=== PATIENT | male | born 1950 | race African-American/Black ===

== ENCOUNTER → 2016-07-10 19:22 | Outpatient (CLI) | payer MEDICARE ==
[2015-11-20 13:08] VITALS: BMI 26.2
[~2016-07-10 19:22] MED LIST: ASPIRIN325 MG PO; BAYER CHEWABLE81 MG PO; CATAPRES0.1 MG PO; CEFTIN250 MG; COREG12.5 MG PO; COREG6.25 MG PO; EFFEXOR25 MG PO; EFFEXOR37.5 MG PO; GLUCOPHAGE500 MG PO; GLUCOTROL 5 MG T5 MG; GLUCOTROL 5 MG T5 MG PO; HYDRALAZINE HCL50 MG PO; HYDROCODONE-APA1 TAB PO; K-DUR20 MEQ PO; LANTUS INSULIN10 ML; LANTUS SOL100 UNIT/1 SQ; LASIX40 MG PO; LEVAQUIN 5500 MG/100 PO; LIPITOR10 MG PO; LIPITOR40 MG PO; LISINOPRIL2.5 MG; NORCO 10/325 TA1 TA1 PO; NORCO 5/325 TAB1 TA1 PO; NORVASC10 MG PO; NORVASC5 MG PO; NOVOLOG100 U/M1 SQ; PHOSLO667 MG PO; PROTONIX40 MG PO; SODIUM BICARBO650 MG PO; ZESTRIL40 MG PO
== END | disposition home or self-care (01) ==
LOC: D.SLEEP 19:22
DX: G47.33 Obstructive sleep apnea (adult) (pediatric) (principal)

== ENCOUNTER → 2016-07-18 19:20 | Outpatient (CLI) | payer MEDICARE ==
[2015-11-20 13:08] VITALS: BMI 26.2
== END | disposition home or self-care (01) ==
LOC: D.SLEEP 19:20
DX: G47.33 Obstructive sleep apnea (adult) (pediatric) (principal)

== ENCOUNTER → 2016-09-10 13:26 | Outpatient (CLI) | payer MEDICARE ==
[2015-11-20 13:08] VITALS: BMI 26.2
== END | disposition home or self-care (01) ==
LOC: D.CT 13:26
DX: R91.1 Solitary pulmonary nodule (principal)

== ENCOUNTER → 2017-01-22 13:18 | Outpatient (CLI) | payer MEDICARE ==
[2015-11-20 13:08] VITALS: BMI 26.2
== END | disposition home or self-care (01) ==
LOC: D.CT 13:18
DX: R91.1 Solitary pulmonary nodule (principal)

== ENCOUNTER → 2017-01-27 10:46 | Outpatient (CLI) | payer MEDICARE ==
[2015-11-20 13:08] VITALS: BMI 26.2
== END | disposition home or self-care (01) ==
LOC: D.LABREF 10:46
DX: R91.1 Solitary pulmonary nodule (principal)

== ENCOUNTER 2017-02-03 05:23 | Outpatient (CLI) | payer MEDICARE ==
[~2017-02-03] VITALS: Ht 185.4 cm; Wt 86.8 kg
[2017-02-03 05:54] VITALS: BP 237/128; Ht 185.4 cm; Wt 86.8 kg
[2017-02-03 06:20] LABS: BASOPHILS 0.4 % (0-2); EOSINOPHILS 3.5 % (0-7); HEMATOCRIT 34.2 % (42.0-54.0); HEMOGLOBIN 11.2 g/dL (13.5-17.5); LYMPHOCYTES 37.5 % (15-50); MCH 26.5 pg (26.0-34.0); MCHC 32.7 g/dL (31.0-37.0); MONOCYTES 7.9 % (2-11); NEUTROPHILS 50.7 % (40-80); RBC 4.22 10x6/uL (4.20-6.10); RDW 16.8 % (11.5-14.5); WBC 5.2 10x3/uL (4.8-10.8)
[2017-02-03 06:22] LABS: PLATELET COUNT 177 10x3/uL (130-400)
[2017-02-03 06:28] LABS: APTT 30.8 SECONDS (22.8-39.4); INR 1.21 (0.85-1.17); PROTIME 15.2 SECONDS (11.6-15.0)
[2017-02-03 06:31] LABS: CALCIUM 8.1 mg/dL (8.5-10.1); CARBON DIOXIDE 17.3 mmol/L (21.0-32.0); CREATININE - SERUM 3.8 mg/dL (0.6-1.3); POTASSIUM - SERUM 5.3 mmol/L (3.5-5.1)
--- NOTE | 2017-02-03 07:29 | NUR ---
0600- PT WITH ELEVATED BP. RADIOLOGY PAGED. WILL AWAIT ORDERS. 0700- SPOKE WITH KAYLEN Swartz RN, BP REMAINS ELEVATED. DR. ALONZO NOT NOTIFIED. WILL AWAIT ORDERS
--- NOTE | 2017-02-03 10:43 | NUR ---
0931 SEE POST PROCEDURE VITAL SIGNS CHECKLIST FOR VITAL SIGN TRENDING. PT SATURATED DRESSING, CHANGED.
== END 2017-02-03 14:00 | disposition home or self-care (01) ==
LOC: D.OPS 05:23 → D.SP 08:00 → D.OPS 08:00
PROVIDERS: Specialist
DX: C34.91 Malignant neoplasm of unspecified part of right bronchus or lung (principal); J44.9 Chronic obstructive pulmonary disease, unspecified; N18.9 Chronic kidney disease, unspecified; I12.9 Hypertensive chronic kidney disease with stage 1 through stage 4 chronic kidney disease, or unspecified chronic kidney disease; K21.0 Gastro-esophageal reflux disease with esophagitis; J90 Pleural effusion, not elsewhere classified; Z87.891 Personal history of nicotine dependence

== ENCOUNTER 2017-03-24 13:54 | Outpatient (CLI) | payer MEDICARE ==
[~2017-03-24] VITALS: Ht 185.4 cm; Wt 84.1 kg
[2017-03-24 14:52] VITALS: BP 162/82; Ht 185.4 cm; Wt 84.1 kg
--- NOTE | 2017-03-24 19:05 | NUR ---
PATIENT LYING IN BED, SLEEPING, RESPIRATIONS EVEN AND UNLABORED. VSS. PRBC'S TRANSFUSING WITHOUT DIFFICULTY AT 185 CC/HR TO LEFT UPPER EXT PIV
--- NOTE | 2017-03-24 19:55 | NUR ---
PATIENT TRANSFERRED BY WHEELCHAIR TO ROOM 2135 FOR REMAINDER OF TRANSFUSION AND POST TRANSFUSION EVALUATION PERIOD
--- NOTE | 2017-03-24 20:15 | NUR ---
RECIEVED PT. PT IN ROOM FOR MONITORING.
--- NOTE | 2017-03-24 21:30 | NUR ---
DISCHARGED PT. VSS. DISCHARGE PAPERWORK GIVEN TO PT. ESCORTED TO FRONT DOOR BY THIS NURSE.
== END 2017-03-24 21:30 | disposition home or self-care (01) ==
LOC: D.OPS 13:54 → D.M2 19:57 → D.OPS 21:30
DX: D63.0 Anemia in neoplastic disease (principal); C34.11 Malignant neoplasm of upper lobe, right bronchus or lung

== ENCOUNTER → 2017-04-04 05:42 | Day surgery (SDC) | payer MEDICARE ==
[~2017-04-04 05:42] MED LIST changes: +ALBUTEROL2.5 MG/3 M INH; +ALDACTONE25 MG PO; +ALDACTONE50 MG PO; +BREO ELLIPTA 11 EACH INH; +BROVANA15 MCG/2 M INH; +CARAFATE1 G/10 ML PO; +CENTRUM SILVER1 TA1 PO; +COLACE100 MG PO; +FERROUS SULFAT325 MG PO; +FOLIC ACID1 MG PO; +IPRAT-ALBUT 0.5-3 ML UPD; +NOVOLIN 70/30 110 ML; +PEPCID20 MG PO; +PHENERGAN25 M1 PO; +PROCRIT/EP40000 UNIT SQ; +SODIUM BICARBO325 MG PO; +VITAMIN B-122500 MCG PO
[2017-04-04 07:13] VITALS: BP 139/65; BMI 24.3
[2017-04-04 08:15] LABS: MCH 26.3 pg (26.0-34.0); MCHC 33.2 g/dL (31.0-37.0); MCV 79.3 fL (80.0-100.0); MEAN PLATELET VOLUME 9.9 fL (7.4-10.4); RBC 2.51 10x6/uL (4.20-6.10); RDW 17.4 % (11.5-14.5); WBC 9.5 10x3/uL (4.8-10.8)
[2017-04-04 08:17] LABS: HEMATOCRIT 19.9 % (42.0-54.0); HEMOGLOBIN 6.6 g/dL (13.5-17.5)
--- NOTE | 2017-04-04 14:03 | OP ---
PATIENT NAME: KERRI BAUTISTA SR MEDICAL RECORD: [id number] :50 [facility] AD[facility] DATE: SURGEON: ISIDORO GOMEZ MD DATE OF OPERATION: 04/04/2017 PREOPERATIVE DIAGNOSES: 1. Lung cancer. 2. Anemia of chronic disease. 3. Hypertension. 4. Coronary artery disease. 5. Diabetes mellitus. 6. Chronic obstructive pulmonary disease. 7. Chronic renal failure. 8. Obstructive sleep apnea. POSTOPERATIVE DIAGNOSES: 1. Lung cancer. 2. Anemia of chronic disease. 3. Hypertension. 4. Coronary artery disease. 5. Diabetes mellitus. 6. Chronic obstructive pulmonary disease. 7. Chronic renal failure. 8. Obstructive sleep apnea. PROCEDURE: Left subclavian vein PowerPort placement with fluoroscopic interpretation. SURGEON: Isidoro Gomez MD OPERATIVE PROCEDURE: The patient's left chest was prepped and draped in sterile fashion. A 10 mL of a mixture of 0.25% Marcaine plain and 1% lidocaine with epinephrine was infused into the surrounding tissues. A needle was then used to cannulate the left subclavian vein and a guidewire was advanced with these. Fluoro was used to note that the wire was in good position in the venous system. A skin incision was then made on the left upper lateral chest and a subcutaneous pouch was made over the pectoral fascia. The catheter was then tunneled between this pouch and the wire exit site. The port was then sutured to the pectoral fascia using interrupted 2-0 Prolenes times 2. The catheter was cut with a beveled tip at 20 cm. The dilator trocar device was placed over the wire and the wire and dilator were removed. The catheter tip was advanced through the trocar with ease and the trocar was removed. The catheter resting in good position in the superior vena cava. The catheter aspirated nonpulsatile dark blood and flushed easily with heparinized saline. The subcutaneous tissues were reapproximated with interrupted 3-0 Vicryl and the skin was closed with subcutaneous 5-0 Monocryl. We then accessed the port with a Rust needle and placed the dressing. COMPLICATIONS: None. CONDITION: Stable. ANESTHESIA: TIVA and local. BLOOD LOSS: Minimal. OPERATIVE REPORT [id number] KERRI BAUTISTA TRANSINT:[id number] Voice Confirmation ID: [id number] DOCUMENT ID: [id number] ISIDORO GOMEZ MD at 1403 CC: BOB LIN MD and JOE RICCI MD [id number] DICTATION DATE: 04/04/1756 MOTOR INSPECTION MECHANIC: 04/04/17 1018 [facility] [address] [place] [address]
--- NOTE | 2017-04-04 19:33 | NUR ---
1055 1ST UNIT BLOOD STARTED AT BEDSIDE 1330 UNIT FINISH PT SITING UP EATING 1345 2ND UNIT START 1645 UNIT FINISH NO DISTRESS NOTED 1730 IV DC WITH CATHER TIP INTACT PORT FLUSH PER PROTOCOL
== END | disposition home or self-care (01) ==
LOC: D.OPS 05:42 → D.PAN 14:00 → D.OPS 14:00
PROVIDERS: Anesthesiology
DX: C34.90 Malignant neoplasm of unspecified part of unspecified bronchus or lung (principal); J44.9 Chronic obstructive pulmonary disease, unspecified; G47.33 Obstructive sleep apnea (adult) (pediatric); I12.9 Hypertensive chronic kidney disease with stage 1 through stage 4 chronic kidney disease, or unspecified chronic kidney disease; N18.9 Chronic kidney disease, unspecified; Z87.891 Personal history of nicotine dependence; J84.9 Interstitial pulmonary disease, unspecified; J90 Pleural effusion, not elsewhere classified; K21.0 Gastro-esophageal reflux disease with esophagitis; R91.8 Other nonspecific abnormal finding of lung field; Z01.812 Encounter for preprocedural laboratory examination

== ENCOUNTER 2017-04-20 09:22 | Inpatient (IN) | payer MEDICARE ==
[2017-04-20] VITALS (16 sets, daily range): BP systolic 137–173; BP diastolic 69–97; BMI 23.1
[~2017-04-20 09:22] MED LIST changes: -ALBUTEROL2.5 MG/3 M INH; -ALDACTONE25 MG PO; -BROVANA15 MCG/2 M INH; -CARAFATE1 G/10 ML PO; -COLACE100 MG PO; -IPRAT-ALBUT 0.5-3 ML UPD; -NOVOLIN 70/30 110 ML; -PEPCID20 MG PO; -PHENERGAN25 M1 PO; -PROCRIT/EP40000 UNIT SQ; -SODIUM BICARBO325 MG PO
[2017-04-20 10:23] LABS: BASOPHILS 0.4 % (0-2); EOSINOPHILS 1.2 % (0-7); HEMATOCRIT 23.4 % (42.0-54.0); HEMOGLOBIN 7.7 g/dL (13.5-17.5); IMMATURE GRANULOCYTES 4.8 % (0-5); LYMPHOCYTES 22.2 % (15-50); MCH 26.6 pg (26.0-34.0); MCHC 32.9 g/dL (31.0-37.0); MEAN PLATELET VOLUME 9.3 fL (7.4-10.4); MONOCYTES 7.8 % (2-11); NEUTROPHILS 63.6 % (40-80); PLATELET COUNT 515 10x3/uL (130-400); RBC 2.89 10x6/uL (4.20-6.10); WBC 11.2 10x3/uL (4.8-10.8)
[2017-04-20 10:36] LABS: ALBUMIN 1.7 g/dL (3.4-5.0); ANION GAP 15.2 mmol/L (8-16); CALCIUM 7.5 mg/dL (8.5-10.1); CARBON DIOXIDE 17.6 mmol/L (21.0-32.0); CREATININE - SERUM 2.8 mg/dL (0.6-1.3); POTASSIUM - SERUM 3.8 mmol/L (3.5-5.1); PROTEIN - SERUM 5.5 g/dL (6.4-8.2)
[2017-04-20 10:37] LABS: BILIRUBIN - TOTAL 0.08 mg/dL (0.2-1.3)
[2017-04-20 12:36] LABS: APPEARANCE CLEAR (CLEAR); BILIRUBIN NEGATIVE (NEGATIVE); COLOR YELLOW (YELLOW); GLUCOSE 50 mg/dL (NEGATIVE); KETONE NEGATIVE (NEGATIVE); NITRITE NEGATIVE (NEGATIVE); PROTEIN 3+ mg/dL (NEGATIVE); SPECIFIC GRAVITY 1.015 (1.005-1.020); UROBILINOGEN NORMAL (NORMAL)
[2017-04-20 12:38] LABS: BACTERIA FEW /hpf (NONE SEEN); EPITHELIAL CELLS 0-5 /hpf (0-5); RED CELLS - URINE 0-5 /hpf (0-5); WHITE CELLS - URINE 0-5 /hpf (0-5)
--- NOTE | 2017-04-20 14:30 | NUR ---
PATIENT TO ROOM AT THIS TIME. SITTING UP IN BED. DENIES ANY NEEDS AT THIS TIME. WANTING TO EAT. EXPLAINED NPO. VERBALIZED UNDERSTANDING. CALL LIGHT WITHIN REACH.
--- NOTE | 2017-04-20 17:45 | NUR ---
PATIENT FIRST UNIT OF BLOOD STARTED AT THIS TIME. PORT ACCESS INTACT. VS STABLE. NO COMPLAINTS OR SIGNS OF DISTRESS. FAMILY AT BEDSIDE. CALL LIGHT WITHIN REACH. ADMITTED AND ASSESSED AT THIS TIME.
--- NOTE | 2017-04-20 18:00 | NUR ---
PATIENT VS STILL WNL. BLOOD INFUSING. NO COMPLAINTS OR PROBLEMS. IV INTACT. CALL LIGHT WITHIN REACH.
[2017-04-20] MEDS ORDERED: NORVASC10 MG PO (19:53)
--- NOTE | 2017-04-20 19:53 | NUR ---
REC'D IN BED AWAKKE AND ALERT. RESP EVEN AND UNLABORED. HAS PRBC INFUSING AT THIS TIME. TOLERATING WELL. CAN EXPRESSS NEED AN WANTS WITH NONE NOTED OR VOICED. NO C/O NOTED. ASSESSMENT COMPLETED. C/L IN REACH AT BEDSIDE.
[2017-04-21] VITALS: BP 150/78
[2017-04-21 04:00] VITALS: BP 157/77
--- NOTE | 2017-04-21 04:38 | NUR ---
CONTINUE TO REST WELL AT THIS TIME NO C/O NOTED OR VOICED. C/L IN REACH AT BEDSIDE.
[2017-04-21 05:51] LABS: BASOPHILS 0.8 % (0-2); EOSINOPHILS 2.3 % (0-7); IMMATURE GRANULOCYTES 3.2 % (0-5); MCH 27.1 pg (26.0-34.0); MCV 82.2 fL (80.0-100.0); MEAN PLATELET VOLUME 9.3 fL (7.4-10.4); MONOCYTES 8.9 % (2-11); NEUTROPHILS 53.8 % (40-80); PLATELET COUNT 496 10x3/uL (130-400); RDW 17.5 % (11.5-14.5); WBC 10.6 10x3/uL (4.8-10.8)
[2017-04-21 05:57] LABS: HEMOGLOBIN 9.9 g/dL (13.5-17.5); RBC 3.65 10x6/uL (4.20-6.10)
[2017-04-21 06:12] LABS: CALCIUM 7.7 mg/dL (8.5-10.1); CARBON DIOXIDE 18.6 mmol/L (21.0-32.0); CREATININE - SERUM 2.8 mg/dL (0.6-1.3); MAGNESIUM - SERUM 1.2 mg/dL (1.8-2.4); PHOSPHOROUS 3.4 mg/dL (2.5-4.9); POTASSIUM - SERUM 3.6 mmol/L (3.5-5.1)
[2017-04-21 06:53] LABS: INR 1.18 (0.85-1.17); PROTIME 14.9 SECONDS (11.6-15.0)
[2017-04-21 06:54] LABS: APTT 35.7 SECONDS (22.8-39.4)
--- NOTE | 2017-04-21 07:07 | NUR ---
REPORT RECEIVED, ASSUMED CARE OF PT. RESTING, EASILY AROUSED. L PORT IV INFUSING ORDERED, DRSG C/D/I. TELEMETRY AT 73 BPM SINUS RHYTHM. SCD'S IN PLACE BILATERALLY. NO NEEDS VOICED AT THIS TIME. BED IN LOWEST POSITION, SIDE RAILS UP X 2, CALL LIGHT WITHIN REACH.
[2017-04-21 08:31] VITALS: BP 162/84
[2017-04-21 11:28] LABS: ALBUMIN 1.7 g/dL (3.4-5.0); BILIRUBIN - TOTAL 0.32 mg/dL (0.2-1.3); PROTEIN - SERUM 5.5 g/dL (6.4-8.2)
[2017-04-21 12:43] VITALS: BP 160/80
[2017-04-21 13:46] VITALS: BMI 23.0
--- NOTE | 2017-04-21 15:00 | NUR ---
PT LEFT FLOOR TO GI LAB
--- NOTE | 2017-04-21 19:35 | NUR ---
RECIEVED SHIFT REPORT. PT IS LYING IN BED. ALERT AND ORIENTED AND ABLE TO VERBALIZE NEEDS. IV IS PATENT AND FLUIDS ARE RUNNING PER ORDER. O2 @ 2 PER NASAL CANNULA. PT DENIES ANY PAIN AT THIS TIME. PT IS AMBULATORY BUT WAS INSTRUCTED TO CALL FOR ANY ASSISTANCE NEEDED. NO NEEDS ARE VERBALIZED AT THIS TIME. VISITOR IS AT THE BEDSIDE. WILL CONTINUE TO MONITOR. SIDE RAILS ARE UP X 2. BED IS IN LOWEST POSITION. CALL LIGHT IS WITHIN REACH.
[2017-04-21 20:00] VITALS: BP 148/73
--- NOTE | 2017-04-21 20:46 | NUR ---
SHIFT ASSESSMENT COMPLETED. PT RECIEVED 4 UNITS INSULIN PER SLIDING SCALE FOR STZM=926. NO NEEDS ARE VOICED. WILL MONITOR. SIDE RAILS X 2. BED LOW. CALL LIGHT IN REACH.
[2017-04-22] VITALS: BP 141/70
[2017-04-22 04:00] VITALS: BP 153/75
[2017-04-22 04:14] LABS: BASOPHILS 0.7 % (0-2); EOSINOPHILS 3.2 % (0-7); HEMATOCRIT 28.8 % (42.0-54.0); HEMOGLOBIN 9.4 g/dL (13.5-17.5); IMMATURE GRANULOCYTES 2.8 % (0-5); LYMPHOCYTES 29.2 % (15-50); MCH 26.9 pg (26.0-34.0); MCHC 32.6 g/dL (31.0-37.0); MCV 82.5 fL (80.0-100.0); MEAN PLATELET VOLUME 8.9 fL (7.4-10.4); NEUTROPHILS 54.1 % (40-80); PLATELET COUNT 437 10x3/uL (130-400); RBC 3.49 10x6/uL (4.20-6.10); RDW 18.4 % (11.5-14.5)
[2017-04-22 04:19] LABS: WBC 7.6 10x3/uL (4.8-10.8)
[2017-04-22 04:31] LABS: ALBUMIN 1.5 g/dL (3.4-5.0); ANION GAP 14.9 mmol/L (8-16); BILIRUBIN - TOTAL 0.3 mg/dL (0.2-1.3); CALCIUM 7.5 mg/dL (8.5-10.1); CARBON DIOXIDE 16.7 mmol/L (21.0-32.0); CREATININE - SERUM 2.8 mg/dL (0.6-1.3); POTASSIUM - SERUM 3.6 mmol/L (3.5-5.1)
--- NOTE | 2017-04-22 07:20 | NUR ---
REPORT RECEIVED, ASSUMED CARE OF PT. RESTING, EASILY AROUSED. L PORT INFUSING ORDERED, DRSG C/D/I. TELEMETRY IN PLACE WITH 70 BPM SINUS RHYTHM. O2 VIA NASAL CANNULA IN PLACE. NO NEEDS VOICED AT THIS TIME. BED IN LOWEST POSITION, SIDE RAILS UP X 2, CALL LIGHT WITHIN REACH.
[2017-04-22 08:40] VITALS: BP 174/82
[2017-04-22 11:50] VITALS: BP 153/76
--- NOTE | 2017-04-22 14:11 | NUR ---
Patient Name: KERRI BAUTISTA Admission Status: ER Accout number: [id number] Admission Date: 04-20-2017 : 1950 Admission Diagnosis:ANEMIA, UNSPECIFIED Attending: CARLOS JESUS Current LOS: 2 Anticipated DC Date: Planned Disposition: Home Primary Insurance: [employer] CHOICE PPO MCR [employer]VANT Discharge Planning Comments: CM met with patient to assess discharge planning needs. Patient lives independently at home. He stated that he has a girlfriend who stays with him sometime. He has a cpap machine, but that is all he uses. He does not have a trouble getting around at home. His friend (Trever) will be the one to take him home at discharge. We talked about HH and he does think that he needs that at this time. CM will continue to follow and assist with discharge planning needs. PCP: [facility] Trever (friend) [phone] Anesthesia Tech: Linn Mendoza * Is the patient Alert and Oriented? Yes 0 * How many steps to enter\exit or inside your home? 4 0 * PCP [facility] 0 * [facility] * Preadmission Environment Home Alone 0 * ADLs Independent 0 * Equipment CPAP 0 * List name and contact numbers for known caregivers / representatives who currently or will assist patient after discharge: Trever (friend) [phone] 0 * Community resources currently utilized None 0 * Additional services required to return to the preadmission environment? No 0 * Can the patient safely return to the preadmission environment? Yes 0 * Has this patient been hospitalized within the prior 30 days at any hospital? No 0 Grand Total: 0
--- NOTE | 2017-04-22 15:09 | NUR ---
1 UNIT PRBC TRANFUSION INITIATED, WILL MONITOR IN ROOM X 15 MINUTES AND THEN CONTINUE TO MONITOR VITALS AND PT THROUGHOUT TRANSFUSION.
--- NOTE | 2017-04-22 19:35 | NUR ---
RECIEVED SHIFT REPORT. PT IS LYING IN BED. ALERT AND ORIENTED AND ABLE TO VERBALIZE NEEDS. IV IS PATENT AND FLUIDS ARE RUNNING PER ORDER. O2 @ 2 PER NASAL CANNULA. PT IS AMBULATORY BUT WAS INSTRUCTED TO CALL FOR ANY ASSISTANCE NEEDED. SCD'S ON. PT DENIES ANY PAIN AT THIS TIME. NO NEEDS ARE VERBALIZED AT THIS TIME. WILL CONTINUE TO MONITOR. SIDE RAILS ARE UP X 2. BED IS IN LOWEST POSITION. CALL LIGHT IS WITHIN REACH.
[2017-04-22 20:00] VITALS: BP 162/85
--- NOTE | 2017-04-22 20:59 | NUR ---
STOOL SENT TO LAB FOR WARRENTED TESTS.
--- NOTE | 2017-04-22 21:29 | NUR ---
SHIFT ASSESSMENT COMPLETED. NIGHT MEDS GIVEN WITH NO PROBLEMS. PT RECIEVED NO INSULIN PER SLIDING SCALE FOR FSBS=9. NO NEEDS ARE VERBALIZED AT THIS TIME. WILL CONTINUE TO MONITOR. SIDE RAILS X 2. BED LOW. CALL LIGHT IN REACH.
[2017-04-23] VITALS: BP 163/84
[2017-04-23 04:00] VITALS: BP 138/94
[2017-04-23 05:47] LABS: BASOPHILS 0.3 % (0-2); EOSINOPHILS 5.2 % (0-7); HEMATOCRIT 34.5 % (42.0-54.0); IMMATURE GRANULOCYTES 2.4 % (0-5); LYMPHOCYTES 27.8 % (15-50); MCH 27.4 pg (26.0-34.0); MCV 82.9 fL (80.0-100.0); MEAN PLATELET VOLUME 8.9 fL (7.4-10.4); MONOCYTES 12.2 % (2-11); NEUTROPHILS 52.1 % (40-80); PLATELET COUNT 443 10x3/uL (130-400); RBC 4.16 10x6/uL (4.20-6.10); RDW 18.2 % (11.5-14.5); WBC 6.7 10x3/uL (4.8-10.8)
[2017-04-23 05:51] LABS: HEMOGLOBIN 11.4 g/dL (13.5-17.5)
[2017-04-23 06:23] LABS: ALBUMIN 1.6 g/dL (3.4-5.0); ANION GAP 16.6 mmol/L (8-16); BILIRUBIN - TOTAL 0.3 mg/dL (0.2-1.3); CALCIUM 7.6 mg/dL (8.5-10.1); CREATININE - SERUM 2.7 mg/dL (0.6-1.3); POTASSIUM - SERUM 3.6 mmol/L (3.5-5.1); PROTEIN - SERUM 5.4 g/dL (6.4-8.2)
--- NOTE | 2017-04-23 07:19 | NUR ---
REPORT RECEIVED FROM CLOTHER IN NURSE. CALL LIGHT IN REACH.
--- NOTE | 2017-04-23 08:28 | NUR ---
PT USING INCENTIVE SPIROMETER AT THIS TIME. NO VISABLE SIGNS OF PAIN OR DISCOMFORT AT THIS TIME. BED IN LOW POSITION AND CALL LIGHT WITHIN REACH. WILL CONTINUE TO MONITOR.
[2017-04-23 08:33] VITALS: BP 181/93
--- NOTE | 2017-04-23 08:53 | NUR ---
ASSESSMENT COMPLETED. AM MEDS ADMINISTERED WITH SIP OF WATER. SCDs TO BLE. CALL LIGHT IN REACH. WILL CONTINUE WITH PLAN OF CARE.
--- NOTE | 2017-04-23 10:38 | NUR ---
NEW BAG OF IV FLUIDS INITIATED. IV TUBING CHANGED PER HOSPITAL POLICY. REFUSES PASSWORD.
--- NOTE | 2017-04-23 10:53 | NUR ---
NOTED THAT STOOL IS NOT CLEAR. SPOKE WITH NURSE AT DR. MORENO'S OFFICE. ORDER FOR ENEMAS UNTIL CLEAR.
--- NOTE | 2017-04-23 11:05 | NUR ---
TAP WATER ENEMA INITIATED.
--- NOTE | 2017-04-23 12:25 | NUR ---
FSBS 114 SO NO COVERAGE REQUIRED. CARAFATE HELD D/T NPO STATUS. MORE OF ENEMA ADMINISTERED.
[2017-04-23 12:27] VITALS: BP 158/90
--- NOTE | 2017-04-23 12:51 | NUR ---
ANOTHER NURSE AND I WITNESSED A CLEAR STOOL AFTER LAST ENEMA.
--- NOTE | 2017-04-23 14:09 | NUR ---
NUTRITION F/U CHART REVIEWED. PT REMAINS ON CLEAR LIQUID DIET. WILL MONITOR DIET ADVANCEMENT, PT PROGRESS. RD FOLLOWING
--- NOTE | 2017-04-23 14:46 | NUR ---
TO GI LAB VIA BED.
--- NOTE | 2017-04-23 16:25 | NUR ---
BACK IN ROOM. MEDS ADMINISTERED PER ORDER. FSBS 105. BUSINESS INFO CONSULTANT PLACED BACK ON. CALL LIGHT IN REACH.
--- NOTE | 2017-04-23 18:21 | NUR ---
CENTRAL LINE DRSG CHANGED. NO CHANGES IN INITIAL ASSESSMENT. SCDs OFF AT THIS TIME. CALL LIGHT IN REACH. WILL CONTINUE WITH PLAN OF CARE.
--- NOTE | 2017-04-23 19:25 | NUR ---
RECIEVED SHIFT REPORT. PT IS LYING IN BED. ALERT AND ORIENTED AND ABLE TO VERBALIZE NEDS. IV IS PATENT AND FLUIDS ARE RUNNING PER ORDER. SCD'S OFF AT THIS TIME. PT IS AMBULATORY BUT WAS INSTRUCTED TO CALL FOR ANY ASSISTANCE NEEDED. PT DENIES ANY PAIN AT THIS TIME. NO NEEDS ARE VERBALIZED AT THIS TIME. WILL CONTINUE TO MONITOR. SIDE RAILS ARE UP X 2. BED IS IN LOWEST POSITION. CALL LIGHT IS WITHIN REACH.
[2017-04-23 20:00] VITALS: BP 137/69
--- NOTE | 2017-04-23 20:10 | NUR ---
SHIFT ASSESSMENT COMPLETED. NIGHT MEDS GIVEN WITH NO PROBLEMS. PT RECIEVED 10 UNITS INSULIN PER SLIDING SCALE FOR FJCN=066. NO NEEDS ARE VOICED. WILL MONITOR. SIDE RAILS X 2. BED LOW. CALL LIGHT IN REACH.
[2017-04-24 04:00] VITALS: BP 160/83
[2017-04-24 05:21] LABS: BASOPHILS 0.2 % (0-2); EOSINOPHILS 4.5 % (0-7); HEMOGLOBIN 10.9 g/dL (13.5-17.5); IMMATURE GRANULOCYTES 1.3 % (0-5); LYMPHOCYTES 27.9 % (15-50); MCH 27.4 pg (26.0-34.0); MCV 82.9 fL (80.0-100.0); MEAN PLATELET VOLUME 9.1 fL (7.4-10.4); NEUTROPHILS 54.1 % (40-80); PLATELET COUNT 439 10x3/uL (130-400); RBC 3.98 10x6/uL (4.20-6.10); RDW 18.6 % (11.5-14.5); WBC 5.5 10x3/uL (4.8-10.8)
[2017-04-24 05:47] LABS: ALBUMIN 1.4 g/dL (3.4-5.0); ANION GAP 15.2 mmol/L (8-16); BILIRUBIN - TOTAL 0.2 mg/dL (0.2-1.3); CALCIUM 7.3 mg/dL (8.5-10.1); CARBON DIOXIDE 16.6 mmol/L (21.0-32.0); CREATININE - SERUM 2.8 mg/dL (0.6-1.3); POTASSIUM - SERUM 3.8 mmol/L (3.5-5.1); PROTEIN - SERUM 4.9 g/dL (6.4-8.2)
--- NOTE | 2017-04-24 07:30 | NUR ---
AWAKE AND ALERT. ORIENTED X3. NO C/O NAUSEA OR EMESIS THIS AM. DENIES PAIN. LUNGS ARE CLEAR BILATERALLYL, NO COUGH NOTED. SKIN IS INTACT WITHOUT REDNESS. LEFT PORT PATENT WITHOUT REDNESS AT INSERTION SITE. DENIES NEEDS.
[2017-04-24 08:09] VITALS: BP 158/74
--- NOTE | 2017-04-24 09:00 | NUR ---
ATE ALL OF BREAKFAST AND TOOK AM MEDS WITHOUT C/O NAUSEA.
[2017-04-24] MEDS ORDERED: ASPIRIN325 MG PO (10:12)
[2017-04-24] MEDS ORDERED: CARAFATE1 G/10 ML PO (10:12)
--- NOTE | 2017-04-24 10:31 | NUR ---
Patient received d/c orders and went and spoke with patient about home health and PT patient does not was either right now. He stated that he has plenty of help at home. CM will continue to follow and assist with discharge planning needs as needed. IMM served.
--- NOTE | 2017-04-24 11:51 | NUR ---
DISCHARGED TO HOME AMBULATORY WITH FAMILY. DISCHARGE INSTRUCTIONS GIVEN BOTH VERBALLY AND WRITTEN. ALL QUESTIONS ANSWERED. PATIENT VERBALIZED UNDERSTANDING OF SAME. NEEDED PRESCRIPTIONS ESCRIBED TO PHARMACY OF CHOICE. LEFT PORT HEPRANIZED PRIOR TO REMOVING NEEDLE. ALL BELONGINGS WITH PATIENT.
[2017-04-27 03:09] LABS: OVA + PARASITE EXAM Final report (())
--- NOTE | 2017-05-27 10:49 | DS ---
PATIENT:KERRI BAUTISTA SR :50 MEDICAL RECORD: [id number] DISCHARGE SUMMARY ADMISSION DATE: 04/20/17 DISCHARGE DATE: 04/24/17 This is a discharge dated 04/24/2017 from the inpatient hospital. DISCHARGE DIAGNOSES: 1. Gastritis. 2. Upper gastrointestinal bleed. 3. Nausea, vomiting and abdominal pain. 4. Anemia secondary to chemo. 5. Iron-deficiency anemia. 6. Stage IV lung cancer. 7. Chronic kidney disease stage IV. 8. Congestive heart failure. 9. Diabetes. 10. Hypertension. 11. Duodenal ulcer with hemorrhage. 12. Sliding hiatal hernia. 13. Coronary artery disease. 14. Chronic obstructive pulmonary disease. 15. Tobacco abuse. CONSULTS THIS HOSPITALIZATION: 1. Hem/onc with Kg Alfonso MD 2. GI with Irineo Motta DO PROCEDURES THIS HOSPITALIZATION: Colonoscopy with polypectomy on 04/25/[address] Motta. HOSPITAL COURSE: Full H&P is located elsewhere on the chart on this 66-year-old male who was admitted for evaluation of nausea, vomiting and abdominal pain. Heme/onc was consulted, he was seen by Dr. Alfonso. GI was consulted, he was seen by Dr. Motta. He had antiemetics for nausea. Electrolytes were managed by protocol. He was transfused with 2 units of packed red blood cells for significant anemia. He had a CT of his chest for restaging and of his lung cancer that did show some new nodules. Diet was advanced as tolerated. He was on a PPI and Carafate for duodenal ulcer and erosive esophagitis. Fingerstick blood sugars were monitored throughout his hospital stay with appropriate adjustment in medications as needed. His renal function was stable during this hospital stay. He underwent colonoscopy and polypectomy on 04/25/[address] Motta. He was stable post-procedure and considered stable for discharge home on 04/24/2017. She will be discharged home on a PPI and Carafate as well as high fiber diet. DISCHARGE MEDICATIONS: As per discharge medication reconciliation. DISCHARGE DISPOSITION: The patient is discharged home. He will continue his current diet and level of activity. He will follow up with specialists as directed and will be seen by [facility] house calls. He will continue to follow up with primary care, Dr. Braswell as directed. At least 30 minutes was spent in this discharge activity. TRANSINT:[id number] Voice Confirmation ID: [id number] DOCUMENT ID: [id number] DISCHARGE SUMMARY REPORT [id number] KERRI BAUTISTA Dictated By: BECCA TIRADO I have interviewed/examined the above patient and agree with these documented findings. GEETA MAGDALENO MD at 1358 at 1049 CC: [id number] DICTATION DATE: 05/18/17 161 DAIRY DEPARTMENT MANAGER: 05/18/17 181 DIS IN 04/24/17 [facility] [address] [place] [address]
== END 2017-04-24 11:54 | disposition home or self-care (01) | DRG 381 ==
LOC: OBSVTIME → D.ER 09:22 → D.OPS 09:22 → D.MS 13:10 → OBSVTIME 13:10 → D.MS 13:10 → D.ER 13:10 → D.MS 17:46 → EDSTATUS 04-21 14:30 → D.MS 04-24 11:54
PROVIDERS: Family Medicine; Internal Medicine Gastroenterology; Internal Medicine Hematology & Oncology; ADMIT Family Medicine
PROC: 0DB68ZX Excision of Stomach, Via Natural or Artificial Opening Endoscopic, Diagnostic (ICD-10-PCS; 2017-04-21)
PROC: 0DB58ZX Excision of Esophagus, Via Natural or Artificial Opening Endoscopic, Diagnostic (ICD-10-PCS; 2017-04-21)
PROC: 0DB98ZX Excision of Duodenum, Via Natural or Artificial Opening Endoscopic, Diagnostic (ICD-10-PCS; principal; 2017-04-21 14:30)
PROC: 0DBK8ZZ Excision of Ascending Colon, Via Natural or Artificial Opening Endoscopic (ICD-10-PCS; 2017-04-23)
PROC: 0DBL8ZZ Excision of Transverse Colon, Via Natural or Artificial Opening Endoscopic (ICD-10-PCS; 2017-04-23)
DX: K22.11 Ulcer of esophagus with bleeding (principal); C34.90 Malignant neoplasm of unspecified part of unspecified bronchus or lung; I13.11 Hypertensive heart and chronic kidney disease without heart failure, with stage 5 chronic kidney disease, or end stage renal disease; N18.5 Chronic kidney disease, stage 5; K26.4 Chronic or unspecified duodenal ulcer with hemorrhage; D64.81 Anemia due to antineoplastic chemotherapy; E11.22 Type 2 diabetes mellitus with diabetic chronic kidney disease; Z79.4 Long term (current) use of insulin; D63.1 Anemia in chronic kidney disease; K44.9 Diaphragmatic hernia without obstruction or gangrene; K63.5 Polyp of colon; K64.8 Other hemorrhoids; K57.90 Diverticulosis of intestine, part unspecified, without perforation or abscess without bleeding

== ENCOUNTER 2017-05-03 05:43 | Observation (INO) | payer MEDICARE ==
[~2017-05-03] VITALS: Ht 185.4 cm; Wt 79.5 kg
[~2017-05-03 05:43] MED LIST changes: +CARAFATE1 G/10 ML PO
[2017-05-03 06:21] LABS: BASOPHILS 0.5 % (0-2); EOSINOPHILS 1.6 % (0-7); HEMATOCRIT 24.6 % (42.0-54.0); HEMOGLOBIN 8.1 g/dL (13.5-17.5); IMMATURE GRANULOCYTES 0.6 % (0-5); LYMPHOCYTES 23.3 % (15-50); MCH 27.3 pg (26.0-34.0); MCHC 32.9 g/dL (31.0-37.0); MCV 82.8 fL (80.0-100.0); MEAN PLATELET VOLUME 8.7 fL (7.4-10.4); MONOCYTES 6.9 % (2-11); NEUTROPHILS 67.1 % (40-80); RBC 2.97 10x6/uL (4.20-6.10); RDW 17.9 % (11.5-14.5); WBC 6.4 10x3/uL (4.8-10.8)
[2017-05-03 06:22] LABS: PLATELET COUNT 248 10x3/uL (130-400)
[2017-05-03 06:36] LABS: ALBUMIN 1.8 g/dL (3.4-5.0); ANION GAP 15.1 mmol/L (8-16); BILIRUBIN - TOTAL 0.31 mg/dL (0.2-1.3); CALCIUM 7.3 mg/dL (8.5-10.1); CARBON DIOXIDE 19.5 mmol/L (21.0-32.0); CREATININE - SERUM 2.2 mg/dL (0.6-1.3); POTASSIUM - SERUM 3.6 mmol/L (3.5-5.1); PROTEIN - SERUM 5.3 g/dL (6.4-8.2)
[2017-05-03 07:10] LABS: AMYLASE - SERUM 65 U/L (25-115); LIPASE 240 U/L (73-393)
--- NOTE | 2017-05-03 09:20 | NUR ---
PATIENT TO ROOM FROM ER, PATIENT IS ALERT AND ORIENTED AT THIS TIME. PATIENT HAS A L CHEST IP THAT IS SL AT THIS TIME. PATIENT DENIES ANY NEEDS OR PAIN AT THIS TIME, WILL GET PATIENT ADMITTED. CPOC
--- NOTE | 2017-05-03 10:53 | NUR ---
SPOKE WITH DR DIALLO REGARDING PATIENT BP BEING 175/90. AND PATIENT HAS HAD CATAPRES IN ER, PATIENT HAS 2 UNITS OF PRBC ORDERED, HE STATED WAIT ON THE BLOOD UNTIL WE GET THE BP UNDER CONTROL. WILL HOLD. CPOC
[2017-05-03 11:23] VITALS: BP 83/41
[2017-05-03 12:29] VITALS: BP 176/95; Ht 185.4 cm; Wt 79.5 kg
--- NOTE | 2017-05-03 12:30 | NUR ---
PATIENT SITTING UP IN BED, EATING LUNCH. PATIENT DENIES ANY NEEDS AT THIS TIME. BED LOW AND LOCKED. CPOC
--- NOTE | 2017-05-03 13:58 | NUR ---
PATIENT BP 152/74, WILL CALL AND ASK IF OKAY TO START BLOOD. CPOC
--- NOTE | 2017-05-03 14:23 | NUR ---
FIRST UNIT OF PRBC STARTED, PRE TRANSFUSION VS: BP 147/74, HR 69, RR 16, TEMP 96.3. WILL CONT TO MONITOR PATIENT CLOSELY. CPOC
[2017-05-03 15:46] VITALS: BP 163/79
--- NOTE | 2017-05-03 15:49 | NUR ---
SCDS ON AND TOLERATING AT THIS TIME. CPOC
--- NOTE | 2017-05-03 16:05 | NUR ---
PATIENT GIVEN CATAPRES FOR BP 171/95. CPOC
--- NOTE | 2017-05-03 18:00 | NUR ---
SECOND UNIT OF PRBC STARTED. CPOC
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
[2017-05-03 20:00] VITALS: BP 156/80
[2017-05-03 22:56] LABS: HEMATOCRIT 27.7 % (42.0-54.0); HEMOGLOBIN 9.1 g/dL (13.5-17.5)
[2017-05-04] VITALS: BP 120/61
--- NOTE | 2017-05-04 05:40 | NUR ---
PT LAYING IN BED. AT 520 SAYING HE WAS HOT. I GOT HIS MEDS TOGETHER AND GOT HIS MORNING LAB DRAW HE TALKED LESS AND LOOKED AT THE CEILING. PT STOPPED RESPONDING. CHECKED FSBS AND IT WAS 26. GOT 50% DEXTROSE AND PUSHED 25ML INTO HIS LEFT CHEST IP. RECHECKED 5 MINS AFTER AND IT WAS 69. PT NOW IS RESPONSIVE. IN BED WITH HOB 40 DRINKING APPLEJUICE AND COFFEE. PT NOW TOOK MORNING MEDS. RESPRITORY IN ROOM GIVING BREATHING TREATMENT. CHECKING THE BLOODSUGAR AGAIN NOW WILL UPDATE NOTES.
--- NOTE | 2017-05-04 06:01 | NUR ---
RECHECKED FSBS. IT WAS 35, PUSHED THE REST OF THE 50% DEXTROSE. PT DRINKING COFFEE AND APPLE JUICE WATCHING TV NOW THAT I PUSHED THE REST OF THE DEXTROSE. PRIOR TO THAT HE WAS BECOMING LETHARGIC. WILL RECHECK BLOOD SUGAR IN 10 MINS.
--- NOTE | 2017-05-04 06:21 | NUR ---
RECHECK FSBS IT IS 68. PT AWAKE AAO. DRINKING COFFEE. SNACK PROVIDED TO PT. PT HAS NO S/S OF DISTRESS. DENIES ANY NEEDS. WILL CHECK AGAIN BEFORE LEAVING AT 0700
[2017-05-04 06:44] LABS: BASOPHILS 0.4 % (0-2); HEMATOCRIT 29.9 % (42.0-54.0); IMMATURE GRANULOCYTES 0.4 % (0-5); MCH 27.5 pg (26.0-34.0); MCHC 33.4 g/dL (31.0-37.0); MCV 82.1 fL (80.0-100.0); MONOCYTES 8.1 % (2-11); NEUTROPHILS 59.1 % (40-80); PLATELET COUNT 290 10x3/uL (130-400); RDW 17.2 % (11.5-14.5); WBC 6.9 10x3/uL (4.8-10.8)
[2017-05-04 06:45] LABS: RBC 3.64 10x6/uL (4.20-6.10)
--- NOTE | 2017-05-04 07:15 | NUR ---
RECIEVED REPORT ON PATIENT, PATIENT IS ALERT AND ORIENTED AT THIS TIME. PATIENT HAS A L CHEST IP THAT IS SL AT THIS TIME. PATIENT DENIES ANY NEEDS OR PAIN AT THIS TIME. BED IS LOW AND LOCKED AT THIS TIME. CALL LIGHT IN REACH. CPOC
--- NOTE | 2017-05-04 07:39 | NUR ---
RECHECKED FSBS, 90. CPOC
[2017-05-04 08:00] VITALS: BP 180/93
[2017-05-04 08:07] LABS: HEMATOCRIT 30.1 % (42.0-54.0); HEMOGLOBIN 10.1 g/dL (13.5-17.5)
--- NOTE | 2017-05-04 09:15 | NUR ---
MORNING MEDICATIONS GIVEN, PATIENT DENIES ANY NEEDS OR PAIN. CPOC
--- NOTE | 2017-05-04 11:58 | NUR ---
FSBS 147. PATIENT AT BEDSIDE GIVING PATIENT BATH. CPOC
[2017-05-04 12:00] VITALS: BP 129/69
--- NOTE | 2017-05-04 13:50 | NUR ---
PATIENT SITTING UP IN CHAIR, DENIES ANY NEEDS OR PAIN. WILL CONT TO MONITOR
--- NOTE | 2017-05-04 14:31 | HP ---
PATIENT: KERRI BAUTISTA MEDICAL RECORD: [id number] ACCOUNT: [id number] LOCATION:[address] : 50 ADMISSION DATE: 05/03/17 HISTORY AND PHYSICAL EXAMINATION HISTORY OF PRESENT ILLNESS: Mr. Bautista is a 66-year-old white male with lung cancer, who presents to the Emergency Room with increasing weakness and shortness of breath. He is found to be anemic. He has got an H&H of 8.1 and 24.6. Acute abdominal series reveals some nonspecific bowel gas patterns somewhat suggestive of an early ileus. He has had troubles with constipation. PAST MEDICAL HISTORY: Significant for known lung cancer, hypertension, CHF, coronary artery disease with previous bypass, hyperlipidemia, COPD, FREDDY requiring CPAP and lung cancer, type 2 insulin treated diabetes. PAST SURGICAL HISTORY: Include back surgery with previous bypass surgery. ALLERGIES OR INTOLERANCES: None known. HOME MEDICATIONS: Include Coreg 12.5 b.i.d.; [place] 10 p.r.n.; Lantus 32 units at h.s.; sodium bicarbonate; amlodipine 10 mg a day; pantoprazole 40 mg a day; folic acid 1 mg daily; Breo Ellipta 80 mg once a day; ferrous sulfate; recurrent anemia requiring transfusins; multivitamins with iron; B12. FAMILY HISTORY: Significant for diabetes and cancer. SOCIAL HISTORY: The patient has been a smoker in the past. He admits to occasional alcohol. REVIEW OF SYSTEMS: Significant for fatigue, weight loss, no chest pain, but some shortness of breath at times, increasing fatigue. Had a recent hospitalization for upper gastrointestinal bleed. PHYSICAL EXAMINATION: HEENT: Otherwise negative. NECK: Soft and supple. HEART: Regular. LUNGS: Clear. ABDOMEN: Soft. IMPRESSION: 1. Severe anemia. 2. Lung cancer. 3. History of recent gastrointestinal bleed. 4. Insulin treated type 2 diabetes. PLAN: Admit, transfuse, review labs, reviewed studies, see orders for rest of the plan. TRANSINT:[id number] Voice Confirmation ID: [id number] DOCUMENT ID: [id number] HISTORY AND PHYSICAL [id number] KERRI BAUTISTA NATHALIA HORN DO at 0491 CC: [id number] DICTATION DATE: 05/03/17 1646 REGISTRAR ASSISTANT: 05/03/17 1831 ADM IN [facility] [address] [id number]
[2017-05-04] MEDS ORDERED: CARAFATE1 G/10 ML PO (15:54)
[2017-05-04 16:00] VITALS: BP 146/73
[2017-05-04 16:10] LABS: HEMATOCRIT 28.7 % (42.0-54.0); HEMOGLOBIN 9.6 g/dL (13.5-17.5)
--- NOTE | 2017-05-04 17:36 | NUR ---
PATIENT GIVEN DC INSTRUCTIONS. PAPERWORK SIGNED. PATIENT DENIES ANY NEEDS. HERE FOR PROGRAM PROJECT ANALYST.
== END 2017-05-04 17:37 | disposition home or self-care (01) ==
LOC: D.ER 05:43 → OBSVTIME 08:43 → D.M2 08:43
PROVIDERS: Emergency Medicine; Family Medicine; ADMIT Family Medicine
DX: D64.9 Anemia, unspecified (principal); E11.9 Type 2 diabetes mellitus without complications; Z79.4 Long term (current) use of insulin; I11.0 Hypertensive heart disease with heart failure; I50.9 Heart failure, unspecified; I25.10 Atherosclerotic heart disease of native coronary artery without angina pectoris; Z95.1 Presence of aortocoronary bypass graft; Z87.891 Personal history of nicotine dependence; J44.9 Chronic obstructive pulmonary disease, unspecified; E78.5 Hyperlipidemia, unspecified; G47.33 Obstructive sleep apnea (adult) (pediatric); Z85.118 Personal history of other malignant neoplasm of bronchus and lung

== ENCOUNTER → 2017-05-16 09:22 | Outpatient (CLI) | payer MEDICARE ==
[2017-05-03 12:29] VITALS: BMI 23.1
[~2017-05-16 09:22] MED LIST changes: +ALBUTEROL2.5 MG/3 M INH; +ALDACTONE25 MG PO; +BROVANA15 MCG/2 M INH; +COLACE100 MG PO; +IPRAT-ALBUT 0.5-3 ML UPD; +NOVOLIN 70/30 110 ML; +PEPCID20 MG PO; +PHENERGAN25 M1 PO; +PROCRIT/EP40000 UNIT SQ; +SODIUM BICARBO325 MG PO
== END | disposition home or self-care (01) ==
LOC: D.CT 09:22
DX: C34.90 Malignant neoplasm of unspecified part of unspecified bronchus or lung (principal)

== ENCOUNTER 2017-05-19 10:53 | Inpatient (IN) | payer MEDICARE ==
[~2017-05-19] VITALS: Ht 185.4 cm; Wt 82.4 kg
--- NOTE | ~2017-05-19 | HEMODYNAMI ---
PATIENT:KERRI BAUTISTA SR MEDICAL RECORD: [id number] : 50 LOCATION:[facility].2133 ADMISSION DATE: 05/19/17 Generatedon:05/23/201715:08 Patient name: KERRI BAUTISTA Patient #: [id number] SSN: [id number] B: 1950 Date of study: 05/23/2017 Page: Of Hemodynamic Procedure Report Patient Data Patient Demographics Procedure consent was obtained First Name: KERRI Gender: Male Last Name: MICHELE Suffix: [facility] Initial: SURINDER : 1950 Patient #: [id number] Age: 66 year(s) Race: Black Additional ID: [id number] Contact details Address: [address] [place] [address] rd State: [place] City: [facility] Zip code: [address] Past Medical History History of disease Date Diagnosis Comments CAD CHF 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 PVD Hypertension Diabetes Allergies: No known allergies Admission Admission Data Admission Date: 05/19/2017 Admission Time: 15:40 Room #: D.2133 Procedure Procedure Types Cath Procedure Peripheral Cath Diagnostic Procedure Miscellaneous Procedure Description Procedure Date Procedure Date: 05/23/2017 Procedure Start Time: 14:30 Procedure Staff Name Function John Julian MD Performing Physician Reynaldo Bustos RT Monitor Mag Clark RT Scrub Mercy Calhoun RN Nurse Procedure Data Cath Procedure Fluoroscopy Diagnostic fluoroscopy Total fluoroscopy Time: 1.6 time: 1.6 min min Diagnostic fluoroscopy Total fluoroscopy dose: 379 dose: 379 mGy mGy Diagnostic catheters Device Type Used For End Catheter Placement Merit UHF Pigtail VESSEL SIZING 5Fr 65CM catheter Procedure Medications Medication Administration Route Dosage Heparin Flush Bag added to field 2 bags (1000units/500ml NS) Lidocaine 1% added to field 20 Versed I.V. 1 mg Fentanyl I.V. 50 mcg Versed I.V. 1 mg Fentanyl I.V. 50 mcg Hemodynamics Rest Heart Rate: 67 (bpm) Snapshots Pre Cath Intra NCS Post Cath Vital Signs Time Heart Resp SPO2 etCO2 NIBP (mmHg) Rhythm Pain Sedation Rate (ipm) (%) (mmHg) Status Level (bpm) 14:11:19 67 13 100 23.1 161/84(132) NSR 0 (11) 10(A) , No pain 14:15:41 66 13 100 24.5 159/83(131) NSR 0 (11) 10(A) , No pain 14:20:03 66 14 100 24.5 162/83(132) NSR 0 (11) 10(A) , No pain 14:24:30 66 13 95 23.8 157/78(122) NSR 0 (11) 10(A) , No pain 14:28:50 67 12 97 23 154/80(123) NSR 0 (11) 10(A) , No pain 14:33:12 69 12 98 23.8 154/82(124) NSR 0 (11) 10(A) , No pain 14:37:34 68 9 97 26 144/81(123) NSR 0 (11) 10(A) , No pain 14:41:54 67 11 98 26 146/80(119) NSR 0 (11) 10(A) , No pain 14:46:14 66 16 97 25.3 145/78(119) NSR 0 (11) 10(A) , No pain 14:50:35 64 14 96 23.8 138/76(117) NSR 0 (11) 10(A) , No pain 14:54:51 73 11 97 23 139/82(115) NSR 0 (11) 10(A) , No pain 14:59:07 70 20 96 23.8 144/82(118) NSR 0 (11) 10(A) , No pain 15:03:27 64 12 96 143/76(112) NSR 0 (11) 10(A) , No pain 15:07:45 65 10 96 22.3 145/80(120) NSR 0 (11) 10(A) , No pain Medications Time Medication Route Dose Verified Delivered Reason Notes Effec tiveness by by 14:05:32 Heparin Flush added 2 Mercy used for Bag to bags Lj procedure (1000units/500ml field RN NS) 14:05:44 Lidocaine 1% added 20ml John Lopez to vial Iesha Julian MD field MD 14:29:30 Versed I.V. 1 mg John Madrid for Lj Julian RN sedation 14:29:42 Fentanyl I.V. 50 John Madrid for mcg Lj Julian RN sedation 14:34:14 Versed I.V. 1 mg John Madrid for Lj Julian RN sedation 14:34:24 Fentanyl I.V. 50 John Madrid for mcg Lj Julian RN sedation Procedure Log Time Note 13:57:27 Reynaldo Juli RT (R) (CV) sent for patient. Start room use. 13:57:39 Time tracking: Regular hours 13:57:44 Plan of Care:Hemodynamics will remain stable., Cardiac rhythm will remain stable., Comfort level will be maintained., Respiratory function will remain adequate., Patient/ family verbilizes understanding of procedure., Procedure tolerated without complication., Recovers from procedure without complications.. 13:57:50 Patient received from [employer] II to IR Alert and oriented. Tansferred to table in Supine position. 13:58:01 Signed procedure consent form obtained from patient. 13:58:05 Correct patient and procedure confirmed by team. 13:58:07 Full Disclosure recording started 13:58:08 - 13:58:15 H&P Date Dictated: 05/23/2017 Within 30 days and on chart.. 13:58:15 Pre-procedure instructions explained to patient. 13:58:16 Pre-op teaching completed and patient verbalized understanding. 13:58:17 Family in waiting room. 13:58:19 Patient NPO since Midnight. 13:58:25 Is the patient allergic to Iodine/contrast media? No. 13:58:29 Is patient on blood thinner?No 13:58:31 Patient diabetic? Yes. 13:58:34 - 13:58:35 ----Pre-sedation anethsthesia assessment.---- 13:58:39 Previous problem with sedation/anesthesia? No ? 13:58:39 Snore? Yes 13:58:41 Sleep apnea? Yes 13:58:43 Deviated septum? No 13:58:45 Opens mouth fully? No 13:58:47 Sticks out tongue? Yes 13:58:53 Airway obstruction? Yes pe 13:58:57 Dentures? Yes in 13:59:08 Patient pain scale 0/10 no pain. 13:59:16 IV patent on arrival in port with 0.9% NaCl at [facility]. 13:59:25 Sharps counted by scrub and verified by R.N. 13:59:26 Alarms reviewed by R. N. 13:59:31 Right neck area was prepped with chlora-prep and draped in sterile fashion 13:59:37 Use device set IR Diagnostic 13:59:39 Sterile Angiographic Pack opened to sterile field. 13:59:39 Bag Decanter opened to sterile field. 14:05:32 Heparin Flush Bag (1000units/500ml NS) 2 bags added to field was administered by ; used for procedure; 14:05:44 Lidocaine 1% 20ml vial added to field was administered by John Julian MD; ; 14:10:05 ECG and BP/O2 sat monitors applied to patient. 14:10:06 Vital chart was started 14:10:07 Baseline sample Acquired. 14:27:22 Physician arrived 14::23 --------ALL STOP TIME OUT------ 14::23 Final Timeout: patient, procedure, and site verified with staff and physician. All members of the team are in agreement. 14:27:28 Right chest site verified by team. 14::44 Sedation plan: IV Moderate Sedation Medication:Versed, Fentanyl 14:29:00 Procedure started. 14:29:30 Versed 1 mg I.V. was administered by Mercy Calhoun RN; for sedation; 14::42 Fentanyl 50 mcg I.V. was administered by Mercy Calhoun RN; for sedation ; 14:30:15 Local anesthetic to right IJ vein with Lidocaine 1% by John Julian MD.INITIAL ACCESS ONLY 14:30:17 Micropuncture VSI 4FR kit opened to sterile field. 14:30:17 Cook DOC .035 guide wire opened to sterile field. 14:30:17 Terumo 5Fr Lyons Sheath opened to sterile field. 14:30:18 STOPCOCK 3-WAY LARGE BORE opened to sterile field. 14:34:14 Versed 1 mg I.V. was administered by Mercy Calhoun RN; for sedation; 14:34:14 A [employer] [facility] Pigtail VESSEL SIZING 5Fr 65CM catheter was advanced over the wire and used for . 14:34:24 Fentanyl 50 mcg I.V. was administered by Mercy Calhoun RN; for sedation ; 14:47:56 Anna [employer] AMPLATZ Super stiff 180cm guide wire opened to sterile field . 14:59:05 Procedure ended.(Physican Out) 15:00:22 Fluoroscopy time 01.60 minutes. 15:00:32 Fluoroscopy dose: 379 mGy 15:00:32 Flurop Dose total: 379 15:00:35 Sharps counted by scrub and verified by R.N. 15:00:43 Post-op/insertion site Right Jugular vein dressed using a 4 x 4 and Tegaderm. 15:00:48 Post right IJ vein:stable 15:00:53 Post Procedure Pulses reassessed and unchanged 15:00:58 Post procedure instruction explained to patient.Patient verbalizes understanding. 15:01:00 Procedure and supply charges have been captured, reviewed, submitted an d are correct. 15:06:57 Report given to Med II. 15:07:01 Patient transfered to [facility] II with Bed. 15:08:23 Vital chart was stopped Device Usage Item Name Manufacture Quantity Catalog Hospital Part Current Minima l Lot# / Number Charge Number Stock Stock Serial# Code Sterile Cardinal 1 [id number] 5 Angiographic Health Pack Bag Decanter Microtek 1 [id number] 24356 [id number] 5 Medical Inc. Micropuncture VSI VASCULAR 1 [id number] [id number] 5 VSI 4FR kit SOLUTIONS Cook DOC .035 Cook Medical 1 [id number] [id number] [id number] 5 [id number] guide wire Terumo 5Fr Terumo 1 [id number] [id number] 540606 40 Lyons Sheath [facility] [id number] 272052 1381 043232 5 [id number] 3-WAY LARGE BORE Merit F Merit 1 [id number] 727018 559240 5 Pigtail Medical VESSEL SIZING 5Fr 65CM catheter Anna Sci Anna 1 [id number] 486078 535229 5 [id number] AMPLATZ Super Scientific stiff 180cm guide wire Signature Audit [place] Stage Time Signature Unsigned Intra-Procedure 05/23/2017 Reynaldo 3:08:20 PM Juli RT (R) (CV) Signatures Monitor : Reynaldo Signature : Juli RT Date : Time : [id number] [place] [address]
[~2017-05-19 10:53] MED LIST changes: -ALBUTEROL2.5 MG/3 M INH; -ALDACTONE25 MG PO; -BROVANA15 MCG/2 M INH; -COLACE100 MG PO; -IPRAT-ALBUT 0.5-3 ML UPD; -NOVOLIN 70/30 110 ML; -PEPCID20 MG PO; -PHENERGAN25 M1 PO; -PROCRIT/EP40000 UNIT SQ; -SODIUM BICARBO325 MG PO
[2017-05-19 12:32] LABS: BASOPHILS 0.3 % (0-2); EOSINOPHILS 1.7 % (0-7); HEMATOCRIT 22.8 % (42.0-54.0); IMMATURE GRANULOCYTES 1.4 % (0-5); LYMPHOCYTES 19.9 % (15-50); MCH 27.6 pg (26.0-34.0); MCHC 31.6 g/dL (31.0-37.0); MCV 87.4 fL (80.0-100.0); MEAN PLATELET VOLUME 9.1 fL (7.4-10.4); MONOCYTES 5.3 % (2-11); NEUTROPHILS 71.4 % (40-80); PLATELET COUNT 281 10x3/uL (130-400); RBC 2.61 10x6/uL (4.20-6.10); RDW 19.8 % (11.5-14.5); WBC 13.5 10x3/uL (4.8-10.8)
[2017-05-19 12:42] LABS: ALBUMIN 1.6 g/dL (3.4-5.0); BILIRUBIN - TOTAL 0.17 mg/dL (0.2-1.3); CALCIUM 7.6 mg/dL (8.5-10.1); CARBON DIOXIDE 21.4 mmol/L (21.0-32.0); CREATININE - SERUM 2.9 mg/dL (0.6-1.3); POTASSIUM - SERUM 5.4 mmol/L (3.5-5.1); PROTEIN - SERUM 4.9 g/dL (6.4-8.2)
[2017-05-19 12:46] LABS: HEMOGLOBIN 7.2 g/dL (13.5-17.5)
[2017-05-19 12:50] LABS: TROPONIN-I 0.032 ng/mL (0.000-0.060)
[2017-05-19 14:42] LABS: APPEARANCE CLEAR (CLEAR); BILIRUBIN NEGATIVE (NEGATIVE); COLOR YELLOW (YELLOW); GLUCOSE 100 mg/dL (NEGATIVE); KETONE NEGATIVE (NEGATIVE); NITRITE NEGATIVE (NEGATIVE); PROTEIN 1+ mg/dL (NEGATIVE); UROBILINOGEN NORMAL (NORMAL)
[2017-05-19 18:09] LABS: BASOPHILS 0.4 % (0-2); EOSINOPHILS 1.8 % (0-7); HEMATOCRIT 22.9 % (42.0-54.0); IMMATURE GRANULOCYTES 1.2 % (0-5); LYMPHOCYTES 19.6 % (15-50); MCH 27.7 pg (26.0-34.0); MCHC 31.4 g/dL (31.0-37.0); MCV 88.1 fL (80.0-100.0); MEAN PLATELET VOLUME 8.8 fL (7.4-10.4); MONOCYTES 7.6 % (2-11); NEUTROPHILS 69.4 % (40-80); PLATELET COUNT 262 10x3/uL (130-400); RDW 20.2 % (11.5-14.5); WBC 13.6 10x3/uL (4.8-10.8)
[2017-05-19 18:27] LABS: HEMOGLOBIN 7.2 g/dL (13.5-17.5)
[2017-05-19 18:34] LABS: ANION GAP 16.8 mmol/L (8-16); CALCIUM 7.9 mg/dL (8.5-10.1); CARBON DIOXIDE 18.4 mmol/L (21.0-32.0); CREATININE - SERUM 2.9 mg/dL (0.6-1.3); POTASSIUM - SERUM 5.2 mmol/L (3.5-5.1)
[2017-05-19 20:36] LABS: APTT 35.3 SECONDS (22.8-39.4); INR 1.25 (0.85-1.17); PROTIME 15.6 SECONDS (11.6-15.0)
[2017-05-19 23:00] VITALS: BP 180/85
--- NOTE | 2017-05-19 23:00 | NUR ---
PT ARRIVED WITH ER NURSE. PT ASSESSMENT AND PUT ON ICU MONITORS FOR EVALUATION. SEE FLOW SHEET FOR FURTHER DEATILS ON ASSESSMENT. PT POSITIONED FOR COMFORT WILL CONTINUE TO MONITOR.
[2017-05-19 23:29] VITALS: BP 183/87; BMI 25.3
[2017-05-20] VITALS (28 sets, daily range): BP systolic 124–195; BP diastolic 48–98; BMI 25.7
--- NOTE | 2017-05-20 00:05 | NUR ---
DR. MORENO NOTIFIED OF CONSULT. STATED HE WILL SE HIM IN THE AM.
[2017-05-20 00:06] LABS: INR 1.15 (0.85-1.17); PROTIME 14.6 SECONDS (11.6-15.0)
[2017-05-20 06:34] LABS: BASOPHILS 0.5 % (0-2); EOSINOPHILS 2.2 % (0-7); HEMATOCRIT 23.4 % (42.0-54.0); IMMATURE GRANULOCYTES 0.5 % (0-5); LYMPHOCYTES 22.1 % (15-50); MCH 27.1 pg (26.0-34.0); MCHC 31.6 g/dL (31.0-37.0); MONOCYTES 5.7 % (2-11); PLATELET COUNT 252 10x3/uL (130-400); RBC 2.73 10x6/uL (4.20-6.10); WBC 12.9 10x3/uL (4.8-10.8)
[2017-05-20 06:37] LABS: MCV 85.7 fL (80.0-100.0)
[2017-05-20 06:38] LABS: HEMOGLOBIN 7.4 g/dL (13.5-17.5)
[2017-05-20 06:43] LABS: ALBUMIN 1.7 g/dL (3.4-5.0); ANION GAP 16.8 mmol/L (8-16); BILIRUBIN - TOTAL 0.27 mg/dL (0.2-1.3); CARBON DIOXIDE 18.6 mmol/L (21.0-32.0); CREATININE - SERUM 2.9 mg/dL (0.6-1.3); PROTEIN - SERUM 5.2 g/dL (6.4-8.2)
[2017-05-20 06:49] LABS: POTASSIUM - SERUM 4.4 mmol/L (3.5-5.1)
[2017-05-20 07:59] LABS: % SATURATION 30 % (15-55); IRON 45 ug/dl (35-150); TOTAL IRON BIND CAPACITY 147 ug/dl (260-445); UNSAT IRON BIND CAPACITY 102 ug/dl (150-375)
--- NOTE | 2017-05-20 08:00 | NUR ---
SHIFT ASSESSMENT VIA FLOWSHEET, SEE FOR DETAILS.
[2017-05-20] MEDS ORDERED: CATAPRES0.1 MG PO (08:02)
[2017-05-20] MEDS ORDERED: HYDRALAZINE HCL50 MG PO (08:04)
[2017-05-20] MEDS ORDERED: PHENERGAN25 M1 PO (08:05)
[2017-05-20] MEDS ORDERED: PROCRIT/EP40000 UNIT SQ (08:06)
[2017-05-20] MEDS ORDERED: ALDACTONE25 MG PO (08:06)
--- NOTE | 2017-05-20 09:35 | NUR ---
* Is the patient Alert and Oriented? Yes 0 * How many steps to enter\exit or inside your home? 4 0 * PCP Dr. Braswell 0 * Pharmacy [place] 0 * Preadmission Environment Home with Family 0 * ADLs Partial Dependent 0 * Partial ADLs (Assistance needed) Ambulation Bathing Dressing Toileting 0 * Equipment CPAP Rolling Walker 0 * List name and contact numbers for known caregivers / representatives who currently or will assist patient after discharge: Spouse - Ashley [phone] Friend - Trever [phone] 0 * Additional services required to return to the preadmission environment? Yes 0 * Can the patient safely return to the preadmission environment? Yes 0 * Has this patient been hospitalized within the prior 30 days at any hospital? Yes Patient Name: KERRI BAUTISTA Admission Status: ER Accout number: [id number] Admission Date: 05-19-2017 : 1950 Admission Diagnosis: Attending: MANSI BATES Current LOS: 1 Planned Disposition: Home with Home Health Primary Insurance: i.Sec [facility] Discharge Planning Comments: CM met with patient to assess DC plans/needs. Patient reports he lives at home with his , Ashley. Spouse states patient has progressively become weaker & SOB since his last hospitalization. He requires assistance with bathing, dressing, & toileting. He uses a walker & CPAP at home. They report they having been trying to get home oxygen, but have not been successful. Explained we will evaluate him for home O2 prior to discharge and get it ordered prior to going home if he qualifies. Discussed home health services - patient is agreeable. GOLD signed for [employer]. Patient requesting information on Advanced Directive. Provided AD booklet & answered questions. Offered to have hospital rep. notarize document if they desire. CM will follow & assist with any needs. Table Games Supervisor: Viry Steward
--- NOTE | 2017-05-20 09:50 | NUR ---
DR MORENO AT BEDSIDE, SCOPE IN PROGRESS. TIVA BY DR GOVEA.
--- NOTE | 2017-05-20 10:10 | NUR ---
SCOPE COMPLETE. 1025- AND PT UPDATED POST PROCEDURE BY DR MORENO.
--- NOTE | 2017-05-20 10:40 | NUR ---
SPOKE WITH DR MORENO VIA PHONE, PT OK TO TRANSFER TO FLOOR.
--- NOTE | 2017-05-20 10:45 | NUR ---
SPOKE WITH DR MARIE VIA PHONE, PT OK TO TRANSFER.
--- NOTE | 2017-05-20 16:37 | NUR ---
RECEIVED REPORT FROM SUSAN VALENCIA IN CVICU.
--- NOTE | 2017-05-20 16:37 | NUR ---
REPORT CALLED TO SUSAN VELÁZQUEZ.
[2017-05-20 17:35] LABS: HEMATOCRIT 21.2 % (42.0-54.0)
[2017-05-20 17:36] LABS: HEMOGLOBIN 6.7 g/dL (13.5-17.5)
--- NOTE | 2017-05-20 18:12 | NUR ---
LASIX IV 40MG GIVEN PER ORDER. COW DURING DOCUMENTATION.
--- NOTE | 2017-05-20 18:20 | NUR ---
SPOKE TO DR PARISH. ROBERTSON FOR PT TO GO TO [facility].
--- NOTE | 2017-05-20 19:15 | NUR ---
REPORT RECEIVED CARE ASSUMED. INITIAL SHIFT ASSESSMENT COMPLETED SEE FLOWSHEET. PT DOES HAVE ORDERS FOR TRANSFER TO FLOOR, AWAITING ROOM NUMBER ASSIGNMENT. PT NOTIFIED OF ORDERS AND PENDING TRANSFER. PT VERBALIZED COMPRENSION. PT HAS ORDERS TO RECEIVE 2U PRBC TRANSFUSED WHEN READY. WILL TRANSFER WHEN AVAILABLE. PT BEGAN ON PREP FOR COLONOSOPY TOMORROW AND TEACHING DONE ON NPO STATUS. PT IS CURRENTLY BEING MONITORED PER STANDARD CVICU WITH ALL ALARMS SET AND VERIFIED.
[2017-05-20 19:31] LABS: MAGNESIUM - SERUM 1.5 mg/dL (1.8-2.4); PHOSPHOROUS 3.9 mg/dL (2.5-4.9)
[2017-05-20] MEDS ORDERED: BREO ELLIPTA 11 EACH INH (19:45)
[2017-05-20] MEDS ORDERED: NOVOLIN 70/30 110 ML (19:46)
--- NOTE | 2017-05-20 21:13 | NUR ---
REPORT CALLED TO EDGARDO WILLIS RN PT IS RECEIVING THE 1ST OF 2 UNITS. VSS NO REACTIONS NOTED AT THIS TIME
--- NOTE | 2017-05-20 21:13 | NUR ---
HS MEDS GIVEN. PT CONTINUES TO WORK ON DRINKING PREP
--- NOTE | 2017-05-20 21:20 | NUR ---
PT LEAVING UNIT VIA W/C WITH STAFF.
--- NOTE | 2017-05-20 21:30 | NUR ---
RECEIVED PT VIA WC ACCOMPANIED BY ICU NURSE TO ROOM 2133. BLOOD TRANSFUSION IN PROGRESS. VSS, AFEBRILE. O2 2LPM NC, SATS 100%. BLOOD TRANSFUSING THROUGH LEFT CHEST IP, SITE CDI AND APPEARS WITHOUT REDNESS OR SWELLING. PT DENIES ANY C/O CURRENT PAIN. GOLYTLELY AT THE BEDSIDE FOR COLONOSCOPY IN AM. PT INSTRUCTED ON BEING NPO AFTER MIDNIGHT. NO NEEDS VOICED. CALL LIGHT PLACED WITHIN REACH. WILL CONT TO MONITOR.
--- NOTE | 2017-05-20 23:00 | NUR ---
1ST UNIT PRBC'S COMPLETED AND WITHOUT ADVERSE REACTION NOTED. VSS, AFEBRILE. RESP EVEN UNLABORED. PT HAS SEVERAL LOOSE BLOODY STOOLS. 1ST HALF OF GOLYTELY COMPLETED AND PT TOLERATING FAIR. CALL LIGHT WITHIN REACH. WILL MONITOR.
--- NOTE | 2017-05-20 23:15 | NUR ---
2ND UNIT PRBC'S STARTED. CHECKED AT THE BEDSIDE BY NURSES X2. FIRST 15 MIN WITHOUT REACTION NOTED. MONITOR VS Q 15 MIN. CALL LIGHT WITHIN REACH.
[2017-05-21 00:45] VITALS: BP 134/62
--- NOTE | 2017-05-21 01:45 | NUR ---
2ND UNIT PRBC'S COMPLETED, PT TOLERATED WELL. VSS, AFEBRILE. NO ADVERSE REACTION SEEN. CONTINUES TO HAVE LOOSE BLOODY STOOLS. WILL CONT TO MONITOR.
[2017-05-21 05:08] LABS: BASOPHILS 0.3 % (0-2); EOSINOPHILS 2.7 % (0-7); HEMATOCRIT 24.5 % (42.0-54.0); IMMATURE GRANULOCYTES 0.7 % (0-5); LYMPHOCYTES 23.9 % (15-50); MCHC 33.5 g/dL (31.0-37.0); MEAN PLATELET VOLUME 9.3 fL (7.4-10.4); MONOCYTES 5.8 % (2-11); NEUTROPHILS 66.6 % (40-80); RBC 2.93 10x6/uL (4.20-6.10); RDW 17.1 % (11.5-14.5); WBC 11.5 10x3/uL (4.8-10.8)
[2017-05-21 05:11] VITALS: BP 185/89
[2017-05-21 05:17] LABS: HEMOGLOBIN 8.2 g/dL (13.5-17.5); MCV 83.6 fL (80.0-100.0); PLATELET COUNT 183 10x3/uL (130-400)
[2017-05-21 05:19] LABS: APTT 31.2 SECONDS (22.8-39.4); INR 1.21 (0.85-1.17); PROTIME 15.2 SECONDS (11.6-15.0)
[2017-05-21 05:30] LABS: ALBUMIN 1.6 g/dL (3.4-5.0); ANION GAP 15.3 mmol/L (8-16); BILIRUBIN - TOTAL 0.39 mg/dL (0.2-1.3); CALCIUM 7.4 mg/dL (8.5-10.1); CARBON DIOXIDE 19.9 mmol/L (21.0-32.0); CREATININE - SERUM 2.8 mg/dL (0.6-1.3); PHOSPHOROUS 3.9 mg/dL (2.5-4.9); POTASSIUM - SERUM 4.2 mmol/L (3.5-5.1); PROTEIN - SERUM 4.6 g/dL (6.4-8.2)
--- NOTE | 2017-05-21 05:48 | NUR ---
PT INSTRUCTED TO RESTART GOLYTELY AT 0600. EXPLAINED TO HIM TO HAVE GOLYTELY FINISHED BY 0900 ORDERED. PT VERBALIZED UNDERSTANDING.
--- NOTE | 2017-05-21 07:15 | NUR ---
REPORT RECEIVED. RR EVEN AND UNLABORED, PT DENIES NEEDS AT THIS TIME. MD AT BEDSIDE. WILL CTM.
[2017-05-21 08:15] VITALS: BP 178/91
--- NOTE | 2017-05-21 10:45 | NUR ---
BLOOD TRANSFUSION INTIATED. RR EVEN AND UNLABORED. PTS VSS, BP IS SLIGHTLY ELEVATED. EDUCATED PT ON S/S TO REPORT OF REACTION. VERBALIZED UNDERSTANDING. PT ON FREQUENT VS. PT DENIES FURTHER NEEDS AT THIS TIME. WILL CTM.
--- NOTE | 2017-05-21 11:00 | NUR ---
SINCE INITATION OF TRANSFUSION, VS HAVE REMAINED STABLE. RR EVEN AND UNLABORED. WILL CTM THROUGHOUT TRANSFUSION.
--- NOTE | 2017-05-21 12:00 | NUR ---
ORACLE R12 DEVELOPER REPORTED THAT PT HAD A MODERATE AMT STOOL THAT APPEARED TO BE MOSTLY BRIGHT RED BLOOD. PT IS ALERT AND ORIENTED, VS ARE STABLE, WILL CTM.
[2017-05-21 12:14] VITALS: BP 148/73
--- NOTE | 2017-05-21 12:30 | NUR ---
GI LAB CALLED FOR PRE-OP. PRE-OP COMPLETED, BLOOD STILL INFUSING. GI LAB IS AWARE THAT PT IS STILL RECEIVING BLOOD. PT DENIES FURTHER QUESTIONS AND NEEDS, VS STABLE. PT TO BE TRANSFERRED TO GI LAB.
--- NOTE | 2017-05-21 13:59 | NUR ---
PRBC INFUSION COMPLETE; PORT FLUSHED WITH 10ML NORMAL SALINE FLUSH WITH NO DIFFICULTIES; PLACED PATIENT ON PRE OP NORMAL SALINE AT 10ML/HR FOR LINE PATENCY; VOICED NO COMPLAINTS AT THIS TIME; WILL CONTINUE TO MONITOR
--- NOTE | 2017-05-21 14:31 | NUR ---
PATIENT OFF FLOOR TO HAVE COLONOSCOPY VIA DR. RICHARD; FAMILY AT BEDSIDE.
--- NOTE | 2017-05-21 19:22 | NUR ---
PT IN BED RESTING QUEITLY. BREATHING EVEN AND UNLABORED. BED RAILS UP X2. BED IN LOW POSITION, CALL LIGHT WITHIN REACH.
--- NOTE | 2017-05-21 21:05 | NUR ---
FSBS 210. 4 UNITS INSULIN GIVEN PER SLIDING SCALE.
[2017-05-21 21:09] VITALS: BP 160/81
[2017-05-22] VITALS (8 sets, daily range): BP systolic 114–142; BP diastolic 59–74
--- NOTE | 2017-05-22 06:10 | NUR ---
PT FSBS 149. NO INSULIN GIVEN PER SLIDING SCALE. BREATHING EVEN AND UNLABORED. BED IN LOW POSITION, CALL LIGHT WITHIN REACH. WILL CTM.
[2017-05-22 06:16] LABS: BASOPHILS 0.4 % (0-2); HEMATOCRIT 24.1 % (42.0-54.0); HEMOGLOBIN 7.9 g/dL (13.5-17.5); IMMATURE GRANULOCYTES 0.2 % (0-5); LYMPHOCYTES 24.7 % (15-50); MCH 27.7 pg (26.0-34.0); MCHC 32.8 g/dL (31.0-37.0); MCV 84.6 fL (80.0-100.0); MEAN PLATELET VOLUME 9.2 fL (7.4-10.4); MONOCYTES 6.2 % (2-11); NEUTROPHILS 65.5 % (40-80); PLATELET COUNT 166 10x3/uL (130-400); RBC 2.85 10x6/uL (4.20-6.10); RDW 17.5 % (11.5-14.5); WBC 9.5 10x3/uL (4.8-10.8)
--- NOTE | 2017-05-22 07:25 | NUR ---
MORNING ROUNDS MADE. PATIENT LAYING IN BED WITH EYES CLOSED. EASILY AROUSED WHEN SPOKEN TO. NO COMPLAINTS AT THIS TIME. NSR @ 82. WEARING NC @ 3L. WILL CONTINUE TO MONITOR. CPOC.
[2017-05-22 07:30] LABS: ALBUMIN 1.6 g/dL (3.4-5.0); ANION GAP 16.5 mmol/L (8-16); BILIRUBIN - TOTAL 0.3 mg/dL (0.2-1.3); CALCIUM 7.4 mg/dL (8.5-10.1); CARBON DIOXIDE 19.8 mmol/L (21.0-32.0); MAGNESIUM - SERUM 1.2 mg/dL (1.8-2.4); PHOSPHOROUS 4.2 mg/dL (2.5-4.9); POTASSIUM - SERUM 4.3 mmol/L (3.5-5.1); PROTEIN - SERUM 4.4 g/dL (6.4-8.2)
--- NOTE | 2017-05-22 07:30 | NUR ---
AM ROUNDS. PT RESTING QUILETY, RR EVEN AND ULABORED. NO SIGNS OF DISTRESS AT THIS TIME.
--- NOTE | 2017-05-22 09:45 | NUR ---
PATIENT SITTING UP IN BED, TALKING ON CELL PHONE. MEDS GIVEN WITHOUT PROBLEMS. NO REQUESTS/COMPLAINTS AT THIS TIME. CPOC.
--- NOTE | 2017-05-22 11:30 | NUR ---
PATIENT SITTING UP IN BED WATCHING TV. FSBS IS 183, 2 UNITS OF HUMALOG GIVEN PER SLIDING SCALE. STATES THE MD JUST CHANGED HIM TO A REGULAR DIET AND REQUESTED LUNCH TRAY. CALLED DIETARY, WILL BRING TRAY. DENIES ANY OTHER NEEDS AT THIS TIME. CPOC.
--- NOTE | 2017-05-22 12:40 | NUR ---
PATIENT SITTING UP IN BED, WATCHING TV. DENIES ANY NEEDS AT THIS TIME. CALL LIGHT IN REACH, BED IN LOWEST POSITION. CPOC.
--- NOTE | 2017-05-22 14:12 | NUR ---
INITIATED PTS BLOOD TRANSFUSION. PT HAS HAD SEVERAL TRANSFUSIONS OVER THE PAST COUPLE DAYS AND IS FAMILAR WITH THIS PROCESS. PREVITALS STABLE AT BP 117/59 HR 65 TEMP 98.0 RR 16 PULSE OX 99% ON 3L NC. INFUSING VIA L.CHEST IP @100ML/HR WILL INCREASE RATE AFTER FIRST 15 MINS OF TRANSFUSION LONG NO REACTION IS NOTED. PT SITTING UP IN BED WATCHING FOOTBALL AND DENIES ANY CURRENT PAIN OR NEEDS. CL IN REACH, BED IN LOWEST, SIDE RAILS X2. WILL CPOC.
--- NOTE | 2017-05-22 14:25 | NUR ---
NO REACTION NOTED AFTER FIRST 15 MINS OF BLOOD TRANSFUSION. VSS AND BEING MONITERED [id number] PER PROTOCOL. PT DENIES ANY CURRENT PAIN OR NEEDS AT THIS TIME. WILL CPOC.
--- NOTE | 2017-05-22 15:30 | NUR ---
TRANSFUSION HALF WAY COMPLETE AND NO REACTION NOTED. VSS AND STILL BEING MONITERED PER POLICY/PROTOCOL. PT DENIES ANY CURRENT NEEDS. WILL CPOC.
--- NOTE | 2017-05-22 16:20 | NUR ---
BLOOD TRANSFUSION NOW COMPLETED. FLUSHED L.CHEST IP WITHOUT ANY DIFFICULTIES. NO REACTION NOTED THROUGHOUT ENTIRE TRANSFUSION. VSS THROUGHOUT ENTIRE TRANSFUSION. PT SITTING UP IN BED RESTING QUIETLY AND DENIES ANY CURRENT PAIN OR NEEDS. CL IN REACH, BED IN LOWEST, SIDE RAILS X2. WILL CPOC.
--- NOTE | 2017-05-22 17:05 | NUR ---
PATIENT SITTING UP IN BED, WATCHING TV. FSBS 263, 6U HUMALOG GIVEN. DENIES ANY NEEDS AT THIS TIME. CPOC.
--- NOTE | 2017-05-22 17:27 | NUR ---
PATIENT SITTING IN BED, WATCHING TV. VSS 1 HOUR POST BLOOD TRANSFUSION. NO REACTIONS NOTED AND PT HAS NO COMPLAINTS AT THIS TIME. WILL CONTINUE TO MONITOR. TRANSFUSION CARD PUT IN PATIENT'S CHART. CPOC.
--- NOTE | 2017-05-22 20:09 | NUR ---
RESUMED CARE OF PT, LYING IN BED RESPIRATIONS EVEN AND UNLABORED ON 3LPM VIA NC. 73 SR ON TELEMETRY. LEFT CHEST INFUSAPORT SALINE LOCKED. NO NEEDS AT THIS TIME, WILL CONTINUE TO MONTIOR. SEE NURSE ASSESSMENT.
[2017-05-23] VITALS (12 sets, daily range): BP systolic 107–162; BP diastolic 55–84
[2017-05-23 05:53] LABS: BASOPHILS 0.2 % (0-2); EOSINOPHILS 2.6 % (0-7); HEMATOCRIT 23.4 % (42.0-54.0); HEMOGLOBIN 7.7 g/dL (13.5-17.5); IMMATURE GRANULOCYTES 0.3 % (0-5); MCH 28.4 pg (26.0-34.0); MCHC 32.9 g/dL (31.0-37.0); MCV 86.3 fL (80.0-100.0); MEAN PLATELET VOLUME 8.9 fL (7.4-10.4); MONOCYTES 6.9 % (2-11); PLATELET COUNT 167 10x3/uL (130-400); RBC 2.71 10x6/uL (4.20-6.10); RDW 16.8 % (11.5-14.5); WBC 9.7 10x3/uL (4.8-10.8)
[2017-05-23 06:51] LABS: ALBUMIN 1.5 g/dL (3.4-5.0); ANION GAP 15.9 mmol/L (8-16); BILIRUBIN - TOTAL 0.2 mg/dL (0.2-1.3); CALCIUM 7.1 mg/dL (8.5-10.1); CARBON DIOXIDE 20.2 mmol/L (21.0-32.0); CREATININE - SERUM 3.6 mg/dL (0.6-1.3); POTASSIUM - SERUM 4.1 mmol/L (3.5-5.1); PROTEIN - SERUM 4.4 g/dL (6.4-8.2)
--- NOTE | 2017-05-23 07:32 | NUR ---
AM ROUNDING- RECEIVED REPORT FROM LAB ENGINEER NURSE DALTON. PT IS CURRENTLY SITTING UP IN BED WITH EYES OPEN RESTING. PT INFORMING ME THAT HIS PHONE IN HIS ROOM IS NOT WORKING. THIS NURSE UNPLUGGED AND TRIED TO FIX PHONE. WILL HAVE MARY GRACE, [employer]UT [employer]OPS FARMER. ON 02 AT 3L VIA NC. ON MONITOR SHOWING SR, HR 71. LEFT CHEST INFUSAPORT SEEN THAT IS SALINE LOCKED. NO NEED AT THIS CURRENT TIME. WILL CONTINUE TO MONITOR AND CONTINUE WITH PLAN OF CARE.
--- NOTE | 2017-05-23 09:54 | NUR ---
KEYA, FROM ESCALATOR INSTALLER ON UNIT. KEYA INFORMS ME THAT PT WILL BE GOING FOR PROCEDURE TODAY. NPO SIGN PLACED ON PTS DOOR. PT AWARE THAT HE NEEDS TO BE NPO ORDERED, PT AGREES. CONSENTS SIGNED AND PLACED IN CHART. EKG IS IN CHART. ATTEMPTED TO CALL KEYA IN ESCALATOR INSTALLER TO INFORM HIM THAT PT HAS LEFT CHEST INFUSAPORT FOR IV ACCESS WITH NO ANSWER. WILL AWAIT FOR ESCALATOR INSTALLER TO CALL TO PRE-OP PT AND INFORM THEM THEN. WILL CONTINUE TO MONITOR.
[2017-05-23 10:20] LABS: INR 1.12 (0.85-1.17); PROTIME 14.3 SECONDS (11.6-15.0)
--- NOTE | 2017-05-23 12:01 | NUR ---
PT TO NM VIA WHEELCHAIR. NM STAFF STATES SHE WILL TAKE PT TO DIRECTOR PROSPECT AFTER FOR IV FILTER. I INFORMED STAFF MEMBER THAT PT HAS NOT BEEN PRE-OP'D YET. STAFF MEMBER STATES SHE WILL LET THEM KNOW OF THIS.
--- NOTE | 2017-05-23 13:17 | NUR ---
PT BACK FROM SC VIA BED.
--- NOTE | 2017-05-23 15:36 | NUR ---
PT BACK FROM PROCEDURE VIA BED. PT IS AWAKE AND ALERT. VITAL SIGNS BEING TAKEN. HOB ELEVATED AT 45 DEGREES. PT INSTRUCTED TO STAY IN BED FOR ATLEAST 2 HOURS. PT AGREES. CLEAN, DRY, AND INTACT DRESSING SEEN TO RIGHT SIDE OF NECK AREA. IS AT BEDSIDE. URINAL PROVIDED FOR PT. WILL CONTINUE TO MONITOR.
--- NOTE | 2017-05-23 17:32 | NUR ---
PT IS CURRENTLY SITTING UP IN BED EATING DINNER. VITAL SIGNS ARE BEING TAKEN. DRESSING TO RIGHT NECK AREA IS CLEAN, DRY, AND INTACT. WILL CONTINUE TO MONITOR.
--- NOTE | 2017-05-23 19:12 | NUR ---
RECEIVED REPORT, WILL ASSUME CARE OF PT, PT WATCHING TV, DENIES ANY NEEDS, CALL LIGHT IN REACH, WILL CONTINUE PLAN OF CARE
[2017-05-24] VITALS: BP 127/55
--- NOTE | 2017-05-24 02:10 | NUR ---
PT SLEEPING, BED IS LOW, SRX2, CALL LIGHT IN REACH, WILL CONTINUE PLAN OF CARE
[2017-05-24 04:08] LABS: HEPATITIS BE ANTIGEN Negative (Negative)
[2017-05-24 04:16] VITALS: BP 132/65
--- NOTE | 2017-05-24 04:45 | NUR ---
BLOODED COLLECTED AND TAKEN TO LAB
[2017-05-24 04:51] LABS: BASOPHILS 0.3 % (0-2); EOSINOPHILS 5.3 % (0-7); HEMATOCRIT 23.2 % (42.0-54.0); HEMOGLOBIN 7.6 g/dL (13.5-17.5); IMMATURE GRANULOCYTES 0.2 % (0-5); LYMPHOCYTES 23.2 % (15-50); MCH 28.5 pg (26.0-34.0); MCHC 32.8 g/dL (31.0-37.0); MCV 86.9 fL (80.0-100.0); MEAN PLATELET VOLUME 9.2 fL (7.4-10.4); MONOCYTES 7.2 % (2-11); NEUTROPHILS 63.8 % (40-80); PLATELET COUNT 178 10x3/uL (130-400); RBC 2.67 10x6/uL (4.20-6.10); RDW 16.6 % (11.5-14.5); WBC 8.9 10x3/uL (4.8-10.8)
[2017-05-24 05:17] LABS: ALBUMIN 1.6 g/dL (3.4-5.0); ANION GAP 14.4 mmol/L (8-16); BILIRUBIN - TOTAL 0.23 mg/dL (0.2-1.3); CARBON DIOXIDE 19.7 mmol/L (21.0-32.0); CREATININE - SERUM 3.7 mg/dL (0.6-1.3); PHOSPHOROUS 4.6 mg/dL (2.5-4.9); POTASSIUM - SERUM 4.1 mmol/L (3.5-5.1); PROTEIN - SERUM 4.7 g/dL (6.4-8.2)
[2017-05-24 05:20] LABS: CALCIUM 6.9 mg/dL (8.5-10.1); MAGNESIUM - SERUM 1.6 mg/dL (1.8-2.4)
--- NOTE | 2017-05-24 05:35 | NUR ---
PT IN BED RESTING. BREATHING EVEN AND UNLABORED. BED IN LOW POSITION. CALL LIGHT WITHIN REACH. WILL CPOC.
--- NOTE | 2017-05-24 07:39 | NUR ---
PATIENT ALERT/OREINT X4. TELEMTRY IN PLACE. CALL LIGHT WITHIN REACH. VOICES NO NEEDS AT THIS TIME.
[2017-05-24 08:00] VITALS: BP 143/64
--- NOTE | 2017-05-24 10:17 | NUR ---
PATIENT LYING IN BED WATCHIN FOOTBALL. OXYGEN ON AT 3L PER N/C NO RESPITORY DISTRESS NOTED.
--- NOTE | 2017-05-24 10:22 | NUR ---
DR MORENO INTO SEE PATIENT NEW ORDERS FOR INTERVENTIONAL RADIOLOGY CONSULT.
[2017-05-24 11:08] LABS: FACTOR VII ACTIVITY 85 % (51-186)
--- NOTE | 2017-05-24 11:30 | NUR ---
GLUCOSE LEVEL 62. ORANGE JUICE GIVEN
[2017-05-24 12:00] VITALS: BP 121/49
[2017-05-24 12:16] LABS: APTT 29.3 SECONDS (22.8-39.4); INR 1.15 (0.85-1.17); PROTIME 14.6 SECONDS (11.6-15.0)
--- NOTE | 2017-05-24 12:45 | NUR ---
INITIATED PTS IVPB MAG FOR LOW MAG REPLACEMENT. AT BEDSIDE DISCUSSING ISSUES WITH FAMILY AND WE ARE KIND OF AT A STANDSTILL R/T PTS CREATNINE TOO HIGH FOR RADIOLOGY TO DO THE TEST, RENAL FOLLOWING AND SUGGESTED D/C OF PPI AND ADD A H2 WHICH CHANGED FOR THEM SO CURRENTLY STILL TRYING TO FIGURE OUT OPTIONS. THINGS WERE DISCUSSED IN GREAT DETAIL TO PT AND AT BEDSIDE. NO CURRENT NEEDS AT THIS TIME. WILL CPOC.
--- NOTE | 2017-05-24 12:51 | NUR ---
INITIATED PTS IVPB MAG FOR LOW MAG REPLACEMENT. AT BEDSIDE DISCUSSING ISSUES WITH FAMILY AND WE ARE KIND OF AT A STANDSTILL R/T PTS CREATNINE TOO HIGH FOR RADIOLOGY TO DO THE NM TEST, RENAL FOLLOWING AND SUGGESTED D/C OF PPI AND ADD A H2 WHICH CHANGED FOR THEM SO CURRENTLY STILL TRYING TO FIGURE OUT OPTIONS. THINGS WERE DISCUSSED IN GREAT DETAIL TO PT AND AT BEDSIDE. NO CURRENT NEEDS AT THIS TIME. WILL CPOC.
--- NOTE | 2017-05-24 12:54 | NUR ---
DR ALONZO INTO SEE PATIENT. INTERVENTIONAL RADIOLOGY CANCELED. JOCELYNN ABBOTT INTO SEE PATIENT. NEW ORDERS RECIEVED. PATIENT TO RECEIVE TWO UNITS OF PRBC
--- NOTE | 2017-05-24 13:59 | NUR ---
FIRST UNIT OF PRB STARTED. PATIENT HAS SIGNED A BLOOD TRANSFUSION CONSENT. V/S TAKEN.
--- NOTE | 2017-05-24 14:03 | NUR ---
INITIATED BLOOD TRANSFUSION UNIT 07/01 FOR TODAY. INFUSING VIA L.CHEST IP. PRE-VITALS STABLE BP 131/60 HR 70 TEMP 98.7 PULSE OX 97% AND WILL BE MONITERED [id number] PER BLOOD TRANSFUSION PROTOCOL. PT RESTING QUIETLY IN BED AND DENIES ANY CURRENT PAIN OR NEEDS. WILL REMAIN IN ROOM FIRST 15MINS OF TRANSFUSION TO MONITER FOR ANY REACTION. WILL CPOC.
[2017-05-24 14:09] LABS: FACTOR VIII - APTT 27.6 sec (22.9-30.2); FACTOR VIII - APTT 1:1 NP 24.8 sec (22.9-30.2); FACTOR VIII - APTT 1:1 SALINE 39.2 sec (Not Estab.); FACTOR VIII ACTIVITY 179 % (57-163)
[2017-05-24 16:00] VITALS: BP 145/75
--- NOTE | 2017-05-24 16:16 | NUR ---
FIRST UNIT OF PRB FINISHED. PATIENT TOLERATED WELL. SECOND UNIT OF PRB STARTED.
--- NOTE | 2017-05-24 17:34 | NUR ---
GLUCOSE LEVEL 238. FOUR UNITS OF SLIDING SCALE INSULIN GIVEN.
--- NOTE | 2017-05-24 19:36 | NUR ---
RECEIVED REPORT, WILL ASSUME CARE OF PT, BLOOD INFUSING, BED IS LOW, SRX2, CALL LIGHT IN REACH, WILL CONTINUE PLAN OF CARE
[2017-05-24 21:22] VITALS: BP 151/66
--- NOTE | 2017-05-24 21:24 | NUR ---
BS-205 4 UNITS [facility] GIVEN
--- NOTE | 2017-05-24 22:41 | NUR ---
PT REQUESTED BS TO BE CHECK- WAS 42, GAVE OJ AND MINDY, WILL RECHECK
--- NOTE | 2017-05-25 | NUR ---
PT RESTING WELL, NO CHANGES NOTED. ASSESSMENTS UNCHANGED. CALL LIGHT WITHIN REACH. WILL MONITOR.
[2017-05-25 01:32] VITALS: BP 133/63
[2017-05-25 04:27] VITALS: BP 141/62
--- NOTE | 2017-05-25 07:34 | NUR ---
ASSESSMENT DONE. DENIES NEEDS.
[2017-05-25 09:06] VITALS: BP 169/80
[2017-05-25 09:23] LABS: BASOPHILS 0.5 % (0-2); EOSINOPHILS 5.1 % (0-7); IMMATURE GRANULOCYTES 0.4 % (0-5); MCH 28.4 pg (26.0-34.0); MCHC 32.6 g/dL (31.0-37.0); MCV 87.4 fL (80.0-100.0); MEAN PLATELET VOLUME 9.7 fL (7.4-10.4); MONOCYTES 6.9 % (2-11); NEUTROPHILS 65.1 % (40-80); RDW 16.8 % (11.5-14.5)
[2017-05-25 09:28] LABS: HEMATOCRIT 29.8 % (42.0-54.0); HEMOGLOBIN 9.7 g/dL (13.5-17.5); PLATELET COUNT 230 10x3/uL (130-400); RBC 3.41 10x6/uL (4.20-6.10)
[2017-05-25 09:31] LABS: ANION GAP 13.8 mmol/L (8-16); CALCIUM 7.5 mg/dL (8.5-10.1); CARBON DIOXIDE 22.4 mmol/L (21.0-32.0); CREATININE - SERUM 3.5 mg/dL (0.6-1.3); MAGNESIUM - SERUM 1.8 mg/dL (1.8-2.4); POTASSIUM - SERUM 4.2 mmol/L (3.5-5.1)
--- NOTE | 2017-05-25 09:46 | NUR ---
RESTS WITH EYES CLOSED. RESP UL ON . CALL LIGHT IN REACH. WILL CONT. PLAN OF CARE.
[2017-05-25 12:00] VITALS: BP 142/58
[2017-05-25 16:00] VITALS: BP 149/70
--- NOTE | 2017-05-25 16:58 | NUR ---
WITHOUT CHANGES OR DISTRESS NOTED AT THIS TIME. DENIES NEEDS.
[2017-05-25 19:00] VITALS: BP 152/78
--- NOTE | 2017-05-25 19:38 | NUR ---
RECEIVED REPORT, WILL ASSUME CARE OF PT, PT SLEEPING, BED IS LOW, SRX2, CALL LIGHT IN REACH, WILL CONTINUE PLAN OF CARE
[2017-05-26 00:29] VITALS: BP 154/74
[2017-05-26 05:03] VITALS: BP 142/62
[2017-05-26 05:48] LABS: BASOPHILS 0.4 % (0-2); HEMATOCRIT 28.7 % (42.0-54.0); HEMOGLOBIN 9.3 g/dL (13.5-17.5); IMMATURE GRANULOCYTES 0.6 % (0-5); LYMPHOCYTES 23.2 % (15-50); MCH 28.7 pg (26.0-34.0); MCHC 32.4 g/dL (31.0-37.0); MCV 88.6 fL (80.0-100.0); MEAN PLATELET VOLUME 9.3 fL (7.4-10.4); MONOCYTES 8.6 % (2-11); NEUTROPHILS 63.2 % (40-80); PLATELET COUNT 262 10x3/uL (130-400); RBC 3.24 10x6/uL (4.20-6.10); RDW 16.4 % (11.5-14.5); WBC 9.7 10x3/uL (4.8-10.8)
[2017-05-26 06:19] LABS: ALBUMIN 1.7 g/dL (3.4-5.0); ANION GAP 14.9 mmol/L (8-16); BILIRUBIN - TOTAL 0.2 mg/dL (0.2-1.3); CALCIUM 7.8 mg/dL (8.5-10.1); CARBON DIOXIDE 21.5 mmol/L (21.0-32.0); CREATININE - SERUM 3.6 mg/dL (0.6-1.3); MAGNESIUM - SERUM 1.8 mg/dL (1.8-2.4); POTASSIUM - SERUM 4.4 mmol/L (3.5-5.1)
--- NOTE | 2017-05-26 07:39 | NUR ---
AM ROUNDING- RECEIVED REPORT FROM SHOE PLANNER NURSE AYO. PT IS CURRENTLY SITTING UP IN BED WITH EYES OPEN RESTING RECEIVING BREATHING TX. ON 02 AT 3L VIA NC. ON MONITOR SHOWING SR, HR 77. IV SEEN TO LEFT INFUSAPORT THAT IS CURRENTLY SALINE LOCKED. NO NEED AT THIS TIME. RESP GAVE PT CUP OF COFFEE REQUESTED. WILL CONTINUE TO MONITOR AND CONTINUE WITH PLAN OF CARE.
[2017-05-26 08:14] VITALS: BP 149/72
--- NOTE | 2017-05-26 08:56 | EC ---
PATIENT:KERRI BAUTISTA SR DATE OF SERVICE: 05/19/17 SEX: M MEDICAL RECORD: [id number] DATE OF : [birth year] LOCATION:D. D.213 AGE OF PATIENT: 66 ADMISSION DATE: 05/19/17 REFERRING PHYSICIAN: INTERPRETING PHYSICIAN: ABIGAIL COLON MD ECHOCARDIOGRAM REPORT ECHO CHARGES CLINICAL DIAGNOSIS: ECHOCARDIOGRAPHIC MEASUREMENTS (adult normal given) AC root (d.<3.7cm) cm LV Septum d (<1.2 cm> cm Valve Excursion cm LV Septum (systole) cm Left Atria (s.<4.0cm> cm LVPW d(<1.2cm) cm RV (d.<2.3cm) cm LVPW (sytole) cm LV diastole(<5.6CM) cm MV E-F(>70mm/sec) cm LV systole cm LVOT Diameter cm MV exc.(>10mm) cm Est.ejection fraction (50-75%) % Pericardial Effusion DOPPLER: LVIT cm/sec A cm/sec E cm/sec LA cm/sec RVSP mmHg LVOT cm/sec AOP1/2T m/s Asc. Ao cm/sec RVOT cm/sec RA cm/sec PA cm/sec AV Gradient Peak mmHg AV Mean mmHg AV Area cm MV Gradient Peak mmHg MV Mean mmHg MV Area cm COMMENTS: Mold Preparer: Pediatric Physician: JUSTIN DATE OF SERVICE: 05/21/2017 PROCEDURE: Echocardiogram. FINDINGS: 1. Left ventricular chamber size is mildly dilated. Left ventricular systolic function is mildly reduced, overall ejection fraction in the 40% range. 2. Left atrium is within normal limits at 3.8 cm. Right atrium and right ventricular chamber sizes are mildly dilated. 3. Valvular structures have normal structure and motion. ECHOCARDIOGRAM REPORT [id number] KERRI BAUTISTA 4. Doppler interrogation reveals mild mitral regurgitation, mild tricuspid regurgitation, no other valvular insufficiency or stenosis. 5. No evidence of pericardial effusion or left ventricular thrombus. TRANSINT:[id number] Voice Confirmation ID: [id number] DOCUMENT ID: [id number] ABIGAIL COLON MD at 0856 CC: [id number] DICTATION DATE: 05/21/17 1206 ELECTRO OPTICS ENGINEER: 05/21/17 1217 ADM IN [address] [place] [address]
[2017-05-26 12:05] VITALS: BP 135/69
--- NOTE | 2017-05-26 13:30 | NUR ---
Nutrition follow-up: Diet: Regular PO intake 100% of most meals labs reviewed +BM Glucose running high; physician to restart home lantus today RDN will continue to monitor patients progress. Following.
--- NOTE | 2017-05-26 13:52 | NUR ---
Patient Name: KERRI BAUTISTA Encounter No: [id number] : 1950 Primary Insurance: [employer] CHOICE PPO MCR ADVANT Anticipated DC Date: 05-26-2017 Planned Disposition: Home with Home Health External Planned Provider: [facility] DCP follow-up note: CM RECEIVED OXYGEN ORDER AND TESTING, MET WITH PT IN ROOM, DISCUSSED AVAILABILITY OF REHAB SERVICES, HOME HEALTH AND MEDICAL EQUIPMENT. PT REPORTS HAVING CPAP FROM [facility] [place] ON [address] AND WOULD LIKE HIS OXYGEN FROM [facility] [place] THEY ARE IN NETWORK WITH HIS INSURANCE. PT REPORTS NO ISSUES WITH COPAYS. PT WOULD LIKE HOME HEALTH WITH [facility] [employer] PREVIOUSLY SIGNED. IMPORTANT MESSAGE FROM MEDICARE PROVIDED AND EXPLAINED. CM NOTIFIED [facility] JAIME OF PT'S REQUEST FOR HOME HEALTH SERVICES. CM CALLED [facility] [place], , SPOKE TO TENNILLE WHO WILL ARRANGE PORTABLE OXYGEN DELIVERY TO PT'S ROOM FOR DISCHARGE HOME AND WILL ARRANGE HOME OXYGEN DELIVERY WITH PT WHEN HE ARRIVES AT HOME. TENNILLE TO CALL PT IN ROOM TO DISCUSS ANY COPAY'S PRIOR TO OXYGEN DELIVERY. CM RECEIVED HOME HEALTH ORDER, CALLED [facility], , SPOKE TO NICHOLAS, PROVIDED HOME HEALTH REFERRAL FOR ADMIT ON 05-28-17; CM FAXED REFERRAL TO [facility] AT [phone]. FOR DISCHARTE, NOTIFY [facility] AT [phone], FAX DISCHARGE INFORMATION TO [facility] AT [phone]. CM TO CONTINUE TO FOLLOW AND ASSIST NEEDED. Randy Botello, CASE MANAGEMENT
[2017-05-26 16:18] VITALS: BP 133/63
--- NOTE | 2017-05-26 16:41 | NUR ---
Patient Name: KERRI BAUTISTA Encounter No: [id number] : 1950 Primary Insurance: [employer] CHOICE PPO MCR ADVANT Anticipated DC Date: 05-26-2017 Planned Disposition: Home with Home Health External Planned Provider: [facility] DCP follow-up note: CM RECEIVED CALL FROM SHARI OF [facility] WHO REPORTS [facility] IS OUT OF PT'S INSURANCE3 NETWORK. CM CALLED [facility], , SPOKE TO AMY WHO ADVISED IN NETWORK WITH INSURANCE, WILL DELIVER PORTABLE TO PT'S ROOM IN THE MORNING FOR DC HOME AND WILL ARRANGE HOME DELIVERY WITH PT. CM FAXED REFERRAL TO [facility] AT [phone]. CM ADVISED PT HE WILL HAVE $15 COPAY FOR OXYGEN SERVICES, PT REPORTS THAT IS OK WITH HIM. FOR DISCHARGE, NOTIFY [facility] AT [phone], FAX DISCHARGE INFORMATION TO [facility] AT [phone]. CM TO CONTINUE TO FOLLOW AND ASSIST NEEDED. Randy Botello, CASE MANAGEMENT
--- NOTE | 2017-05-26 18:36 | NUR ---
PT IS CURRENTLY SITTING UP IN BED WITH EYES OPEN RESTING. IS AT BEDSIDE. PT DENIES ANY NEED AT THIS TIME. WILL CONTINUE TO MONITOR.
[2017-05-26 19:00] VITALS: BP 150/64
--- NOTE | 2017-05-26 22:07 | NUR ---
HS MEDS GIVEN WITH FRESH ICE WATER. BS 228, COVERED PER S/S. LEFT CHEST IFP FLUSHED WITH OUT DIFFICULTY. PT DENIES NEEDS.
[2017-05-27] VITALS (10 sets, daily range): BP systolic 112–160; BP diastolic 53–79
--- NOTE | 2017-05-27 03:34 | NUR ---
RESTING WITH EYES CLOSED, RESPERATIONS EVEN, NO S/S DISTRESS NOTED.
[2017-05-27 05:35] LABS: BASOPHILS 0.3 % (0-2); EOSINOPHILS 3.9 % (0-7); IMMATURE GRANULOCYTES 0.5 % (0-5); LYMPHOCYTES 23.2 % (15-50); MCH 28.6 pg (26.0-34.0); MCV 89.5 fL (80.0-100.0); MEAN PLATELET VOLUME 8.8 fL (7.4-10.4); MONOCYTES 7.5 % (2-11); NEUTROPHILS 64.6 % (40-80); PLATELET COUNT 247 10x3/uL (130-400); RDW 16.7 % (11.5-14.5); WBC 9.2 10x3/uL (4.8-10.8)
[2017-05-27 05:42] LABS: RBC 2.48 10x6/uL (4.20-6.10)
[2017-05-27 05:43] LABS: HEMATOCRIT 22.2 % (42.0-54.0); HEMOGLOBIN 7.1 g/dL (13.5-17.5)
[2017-05-27 05:56] LABS: ALBUMIN 1.4 g/dL (3.4-5.0); ANION GAP 13.2 mmol/L (8-16); BILIRUBIN - TOTAL 0.16 mg/dL (0.2-1.3); CALCIUM 7.1 mg/dL (8.5-10.1); CARBON DIOXIDE 21.2 mmol/L (21.0-32.0); CREATININE - SERUM 3.5 mg/dL (0.6-1.3); MAGNESIUM - SERUM 1.7 mg/dL (1.8-2.4); POTASSIUM - SERUM 4.4 mmol/L (3.5-5.1); PROTEIN - SERUM 4.4 g/dL (6.4-8.2)
--- NOTE | 2017-05-27 06:17 | NUR ---
CASINO SURVEILLANCE OFFICER AT BED SIDE, BATH AND LINEN CHANGE COMPLETE.
--- NOTE | 2017-05-27 06:30 | NUR ---
SPOKE WITH DR GASPAR, INFORMED HIM OF LOW HGB, HE STATED THAT HE IS AWARE, HOWEVER THE PT AND HIS HAVE STATED THAT THEY MAY LEAVE AMA TODAY, BUT IF PT STAYS TO BE SURE TO LET DR ANDRES KNOW BECAUSE PT DOES NEED TO HAVE SOME BLOOD TRANSFUSED. INFORMED HIM THAT I WILL CALL MARTIN JAIME APN ADMINISTRATOR [facility] FOR DR ANDRES.
--- NOTE | 2017-05-27 06:38 | NUR ---
SPOKE WITH MARTIN JAIME APN, CUSTOMER SUPPORT AGENT FOR DR ANDRES, INFORMED HER OF CRITICAL LOW HGB OF 7.1. ORDERS TO CALL DR DE JESUS SEE IF HE WANTS TO TRANSFUSE BLOOD.
--- NOTE | 2017-05-27 06:44 | NUR ---
PAGE OUT TO DR LINN, YOLK SPRAY DRIER FOR DR MORENO.
--- NOTE | 2017-05-27 06:55 | NUR ---
SPOKE WITH DR LINN, ORDERS GIVEN TO TRANSFUSE 2 UNITS PRBCS IF PT AND AGREE, THEN DISCUSS FURTHER PLANS WITH DR LIN.
--- NOTE | 2017-05-27 07:45 | NUR ---
AM ROUNDS - PT IS IN BED AND AWAKE AT THIS TIME. MONITOR SHIWING SR, HR 64. PT IS ON O2 AT 3L VIA NC. LEFT CHEST INFUSAPORT, SL. BED AT LOWEST POSITION. CALL GUERRA IN USE/REACH. SIDE RAILS UP X2. NO NEEDS AT THIS TIME. WILL CONTINUE TO MONITOR
--- NOTE | 2017-05-27 11:04 | NUR ---
FOLLOW UP WITH DR. LIN ON 05/30 AT 0900. PT WILL ALSO HAVE TREATMENT THAT DAY.
--- NOTE | 2017-05-27 11:07 | NUR ---
Patient Name: KERRI BAUTISTA Encounter No: [id number] : 1950 Primary Insurance: [employer] CHOICE PPO MCR ADVANT Anticipated DC Date: 05-26-2017 Planned Disposition: Home with Home Health External Planned Provider: [facility] DCP follow-up note: CM RECEIVED CALL FROM AAYUSH OF [facility], , SPOKE TO AMY WHO ADVISED THAT FAX ORDER WAS NOT RECEIVED YESTERDAY; CM REFAXED REFERRAL TO [facility] AT [phone]. [facility] WILL DELIVER PORTABLE TO PT'S ROOM TODAY FOR DC HOME AND WILL ARRANGE HOME DELIVERY WITH PT. FOR DISCHARGE, NOTIFY [facility] AT [phone], FAX DISCHARGE INFORMATION TO [facility] AT [phone]. CM TO CONTINUE TO FOLLOW AND ASSIST NEEDED. Randy Botello, CASE MANAGEMENT
--- NOTE | 2017-05-27 14:27 | NUR ---
PREBLOOD VS ARE 112/55 RESP 18 P-80. TEMP IS 98.5. FIRST UNIT OF BLOOD STARTED VIA PORT.
--- NOTE | 2017-05-27 19:14 | NUR ---
RECIEVED REPORT FROM DAY SHIFT NURSE, WAITING ON ICU BED TO BECOME AVAILABLE. NM AT BED SIDE TO ESCORT PT TO IR FOR BLEED SCAN.
--- NOTE | 2017-05-27 19:38 | NUR ---
CALLED REPORT TO EMIR IN ICU AND LET SC TECH KNOW THAT PT CAN BE TAKEN THERE AFTER SCAN.
--- NOTE | 2017-05-27 20:35 | NUR ---
Received patient from IR to 230, assessment completed per flowsheet. Patient AO x4, calm and cooperative. Eyes PERRLA @ 4mm with brisk response, sclera is clear/white. S1/S2 noted NSR on telemety with HR 72, rythmic and regular, Breathing is shallow and unlabored on 2L via NC with O2 sat 94%, lung sounds clear bilateral upper and mid with diminished lower. Abdomen is flat and soft, non-tender with bowel sounds active x4. Patient utilizes urinal jug, 650ml clear yellow urine noted. Full ROM all extremities with all pulses palpable, cap refill < 3 sec. L upper chest port dressing CDI, patent. Patient denies pain or other needs at this time, all VSS and will continue to monitor.
--- NOTE | 2017-05-27 21:00 | NUR ---
Spoke to Dr Motta via phone, updated on patietn condition and received new orders. RN to transfuse 2 PRBC if HGB< 8, read back and confirmed. Patient made NPO for possible procedure in AM, H/H to be redrawn @ 0100.
--- NOTE | 2017-05-27 21:15 | NUR ---
1st unit PRBC's initiatied, no s/s of transfusion reaction. Will continue to monitor.
--- NOTE | 2017-05-27 23:10 | NUR ---
Reassessment completed per flowsheet, patient resting in bed with eyes closed. Patient AO x4, calm and cooperative. S1/S2 noted NSR on telemetry with HR 71, rythmic and regular. Breathing is shallow and unlabored on 2L via NC with O2 sat 94%, lung sounds clear bilateral upper and mid with diminished lower. Abdomen is soft and non-tender with bowel sounds active x4, no bleeding noted from rectum. Full ROM all extremities with all pulses palpable, cap refill < 3 sec. Patient denies pain or other needs at this time, all VSS and will continue to monitor.
--- NOTE | 2017-05-27 23:15 | NUR ---
1st unit PRBC's completed, no s/s of transfusion reaction. Patient denies SoB or pain at this time, all VSS and will continue to monitor.
[2017-05-28] VITALS (24 sets, daily range): BP systolic 116–170; BP diastolic 54–88
[2017-05-28 00:59] LABS: BASOPHILS 0.1 % (0-2); EOSINOPHILS 4.3 % (0-7); HEMOGLOBIN 7.6 g/dL (13.5-17.5); IMMATURE GRANULOCYTES 0.7 % (0-5); LYMPHOCYTES 27.6 % (15-50); MCH 29.5 pg (26.0-34.0); MCV 89.1 fL (80.0-100.0); MEAN PLATELET VOLUME 8.9 fL (7.4-10.4); MONOCYTES 5.9 % (2-11); NEUTROPHILS 61.4 % (40-80); PLATELET COUNT 227 10x3/uL (130-400); RBC 2.58 10x6/uL (4.20-6.10); RDW 15.7 % (11.5-14.5); WBC 8.3 10x3/uL (4.8-10.8)
--- NOTE | 2017-05-28 01:00 | NUR ---
Patient resting in bed with eyes closed, breathing is shallow and unlabored on 2L via NC with O2 sat 94%. Patient denies pain or other needs at this time, all VSS and will continue to monitor.
--- NOTE | 2017-05-28 01:10 | NUR ---
H/H redraw completed, HGB < 8. Will transfuse [address] Motta orders, Lab notified. Informed that patient must be redrawn for type and screen and blood to be ordered, will transfuse when available.
--- NOTE | 2017-05-28 03:00 | NUR ---
Reassessment completed per flowsheet, patient resting in bed with eyes closed. Patient AO x4, calm and cooperative. S1/S2 noted NSR on telemetry with HR 69, rythmic and regular. Breathing is shallow and unlabored on 2L via NC with O2 sat 95%, lung sounds clear bilateral upper and mid with diminished lower. Abdomen is flat and soft with bowel sounds active x4, non-tender. All pulses palpable with cap refill < 3 sec, skin warm/dry to touch. Repositioned for comfort, denies pain or other needs at this time. All VSS and will continue to monitor.
[2017-05-28 03:11] LABS: FACTOR VIII ANTIGEN 226 % (())
--- NOTE | 2017-05-28 03:15 | NUR ---
2nd unit PRBC's infusing, no s/s of reaction. Will continue to monitor.
--- NOTE | 2017-05-28 05:00 | NUR ---
2nd unit completed, no s/s of reaction. Will start infusion of 3rd unit and continue to monitor.
--- NOTE | 2017-05-28 08:06 | NUR ---
AWAKE AND ALERT SKIN WARM AND DRY. INFUSING PORT SITE WITHOUT REDNESS OR DRAINAGE. INFUSING WITH NS AT KVO. DENIES PAIN. ABD SOFT. CALL LIGHT WITHIN HANDS REACH.
[2017-05-28 09:13] LABS: BASOPHILS 0.2 % (0-2); EOSINOPHILS 3.4 % (0-7); HEMATOCRIT 29.4 % (42.0-54.0); HEMOGLOBIN 9.9 g/dL (13.5-17.5); IMMATURE GRANULOCYTES 0.3 % (0-5); LYMPHOCYTES 22.2 % (15-50); MCH 29.9 pg (26.0-34.0); MCHC 33.7 g/dL (31.0-37.0); MCV 88.8 fL (80.0-100.0); MEAN PLATELET VOLUME 8.9 fL (7.4-10.4); MONOCYTES 6.4 % (2-11); NEUTROPHILS 67.5 % (40-80); PLATELET COUNT 215 10x3/uL (130-400); RBC 3.31 10x6/uL (4.20-6.10); RDW 15.3 % (11.5-14.5)
[2017-05-28 09:18] LABS: FACTOR VIII ACTIVITY 132 % (()); FACTOR VIII INHIBITOR - APTT 29.5 sec (())
[2017-05-28 09:27] LABS: ALBUMIN 1.6 g/dL (3.4-5.0); ANION GAP 14.3 mmol/L (8-16); BILIRUBIN - TOTAL 0.29 mg/dL (0.2-1.3); CALCIUM 7.6 mg/dL (8.5-10.1); CARBON DIOXIDE 19.1 mmol/L (21.0-32.0); CREATININE - SERUM 3.3 mg/dL (0.6-1.3); MAGNESIUM - SERUM 1.8 mg/dL (1.8-2.4); PHOSPHOROUS 3.6 mg/dL (2.5-4.9); POTASSIUM - SERUM 4.4 mmol/L (3.5-5.1); PROTEIN - SERUM 4.8 g/dL (6.4-8.2)
--- NOTE | 2017-05-28 09:27 | NUR ---
CONSENTS FOR MARKUS AND KHLOE SIGNED BY AT PATIENT REQUEST. QUESTIONS ANSWERED. BED BATH GIVEN BY . LARGE DARK RED STOOL. PATIENT UP ON BSC. TOLERATED WELL GAIT GOOD. D5NS INFUSING AT 40 ML HOUR
--- NOTE | 2017-05-28 09:57 | NUR ---
NUTRITION F/U CHART REVIEWED, PT NOW NPO IN ICU. WILL MONITOR PT PROGRESS, PROVIDE DIET WHEN RESUMED. RD FOLLOWING
[2017-05-28 13:33] LABS: HEMATOCRIT 29.8 % (42.0-54.0); HEMOGLOBIN 10.1 g/dL (13.5-17.5)
--- NOTE | 2017-05-28 13:52 | NUR ---
UP TO BSC. SMALL BLOODY STOOL. DENIES PAIN. INFUSE A PORT SITE WITHOUT REDNESS. PRE OP GIVEN
--- NOTE | 2017-05-28 14:49 | NUR ---
Rec'd message from Ainsley with [facility] - they will need updated O2 sat results within 48 hours of discharge. CM will follow.
--- NOTE | 2017-05-28 16:23 | NUR ---
TALKED WITH SANTOS TUCKER IN IR, INFORMED OF LAST 2 H&h RESULTS. PATIENT WANTS SOMETHING TO EAT. STATES TO GO AHEAD AND LET HIM EAT. MONITOR H&h'S IF THEY DROP CALL IR MATHEMATICIAN RESEARCH.
--- NOTE | 2017-05-28 19:02 | NUR ---
EDG DONE NO BLEEDING FOUND. DR. MORENO TALKED WITH ON PHONE. PATIENT TOLERATED WELL AWAKE AND ALERT, RENAL DIET SERVED ATE 100%.
--- NOTE | 2017-05-28 19:15 | NUR ---
PT IN BED WITH EYES CLOSED AND CHEST RISING. COMPLAINS OF LEFT EYE DISCOMFORT WITH EYE OBSERVED FOR OBJECT OR SCRATCH WITH NONE NOTED AT THIS TIME, LEFT EYE FLUSHED WITH STERILE NS WITH SOME RELIEF NOTED. WILL CONTINUE T0 OBSERVE. PT ALERT AND ORIENTED. NO OTHER CONCERNS NOTED. RECEIVING VIA LEFT PORT D5NS AT 40ML/HR. CALL LIGHT IN REACH.
[2017-05-28 20:38] LABS: HEMATOCRIT 28.9 % (42.0-54.0); HEMOGLOBIN 9.7 g/dL (13.5-17.5)
--- NOTE | 2017-05-28 21:05 | NUR ---
PT IN BED WITH EYES OPEN WATCHING TV. FAMILY AT BEDSIDE. NO CONCERNS NOTED. CALL LIGHT IN REACH. WILL CONTINUE TO OBSERVE.
--- NOTE | 2017-05-28 23:30 | NUR ---
PT IN BED WITH EYES CLOSED AND CHEST RISING. NO S/S OF DISTRESS NOTED. VITAL SIGNS WITHIN NORMAL LIMITS. H&H RESULTS IN AND DECREASED FROM PREVIOUS READINGS. MIDDLE SCHOOL SPECIAL EDUCATION TEACHER IR NOTIFIED WITH NO ORDERS RECEIVED AT THIS TIME. WILL CONTINUE TO OBSERVE. CALL LIGHT IN REACH.
[2017-05-29] VITALS (24 sets, daily range): BP systolic 118–167; BP diastolic 57–700; Ht 185.4 cm; Wt 82.4 kg
--- NOTE | 2017-05-29 01:15 | NUR ---
PT IN BED WITH EYES CLOSED AND CHEST RISING. NO S/S OF DISTRESS NOTED. VITAL SIGNS WITHIN NORMAL LIMITS. NO CONCERNS NOTED. CALL LIGHT IN REACH. WILL CONTINUE TO OBSERVE.
--- NOTE | 2017-05-29 03:25 | NUR ---
PT IN BED WITH EYES CLOSED AND CHEST RISING. NO COMPLAINTS OR CONCERNS NOTED AT THIS TIME. CALL LIGHT IN REACH. WILL CONTINUE TO OBSERVE.
--- NOTE | 2017-05-29 03:50 | NUR ---
PT IN BED WITH EYES CLOSED AND CHEST RISING. EASILY AROUSED TO VERBAL STIMULI. NO S/S OR DISTRESS NOTED. CALL LIGHT IN REACH. WILL CONTINUE TO OBSERVE.
[2017-05-29 04:50] LABS: BASOPHILS 0.1 % (0-2); HEMATOCRIT 28.4 % (42.0-54.0); HEMOGLOBIN 9.5 g/dL (13.5-17.5); IMMATURE GRANULOCYTES 0.2 % (0-5); LYMPHOCYTES 22.5 % (15-50); MCH 30.2 pg (26.0-34.0); MCHC 33.5 g/dL (31.0-37.0); MCV 90.2 fL (80.0-100.0); MEAN PLATELET VOLUME 8.9 fL (7.4-10.4); NEUTROPHILS 64.2 % (40-80); PLATELET COUNT 233 10x3/uL (130-400); RBC 3.15 10x6/uL (4.20-6.10); RDW 15.7 % (11.5-14.5); WBC 8.7 10x3/uL (4.8-10.8)
[2017-05-29 05:03] LABS: ALBUMIN 1.6 g/dL (3.4-5.0); BILIRUBIN - TOTAL 0.2 mg/dL (0.2-1.3); CALCIUM 7.9 mg/dL (8.5-10.1); CARBON DIOXIDE 20.7 mmol/L (21.0-32.0); CREATININE - SERUM 3.4 mg/dL (0.6-1.3); MAGNESIUM - SERUM 1.6 mg/dL (1.8-2.4); PHOSPHOROUS 3.9 mg/dL (2.5-4.9); PROTEIN - SERUM 4.5 g/dL (6.4-8.2)
[2017-05-29 05:09] LABS: POTASSIUM - SERUM 3.7 mmol/L (3.5-5.1)
--- NOTE | 2017-05-29 09:19 | NUR ---
NUTRITION F/U PT CURRENTLY NPO FOR PROCEDURE. RENAL DIET TO RESUME. WILL CONTINUE TO MONITOR PT PROGRESS, PO INTAKE. RD FOLLOWING
--- NOTE | 2017-05-29 10:06 | NUR ---
pt drank ct contrast this am. held npo for now.
--- NOTE | 2017-05-29 10:54 | NUR ---
SPOKE TO SANTOS IN I.R. CBC ORDERED.
[2017-05-29 11:53] LABS: BASOPHILS 0.1 % (0-2); HEMATOCRIT 27.9 % (42.0-54.0); HEMOGLOBIN 9.2 g/dL (13.5-17.5); IMMATURE GRANULOCYTES 0.3 % (0-5); LYMPHOCYTES 18.8 % (15-50); MCH 29.6 pg (26.0-34.0); MCV 89.7 fL (80.0-100.0); MONOCYTES 9.2 % (2-11); NEUTROPHILS 67.9 % (40-80); PLATELET COUNT 222 10x3/uL (130-400); RBC 3.11 10x6/uL (4.20-6.10); RDW 15.7 % (11.5-14.5); WBC 7.8 10x3/uL (4.8-10.8)
--- NOTE | 2017-05-29 12:09 | NUR ---
CBC RESULTS CALLED TO SANTOS BROCK IN I.R.
--- NOTE | 2017-05-29 19:20 | NUR ---
PT RECEIVED IN BED WITH EYES CLOSED AND CHEST RISING. EASILY AROUSED TO VERBAL STIMULI. LEFT SUBCLAVIAN PORT SALINE LOCKED AT THIS TIME AND RECONNECTED TO MAINTENANCE FLUIDS. NO COMPLAINTS OR CONCERNS NOTED AT THIS TIME. CALL LIGHT IN REACH. WILL CONTINUE TO OBSERVE.
--- NOTE | 2017-05-29 21:15 | NUR ---
PT IN BED WITH EYES CLOSED AND CHEST RISING. NO S/S DISTRESS NOTED. RECEIVING D5NS AT 10ML/HR. NO CONCERNS NOTED AT THIS TIME. WILL CONTINUE TO OBSERVE. 450 MLS OF URINE AT THIS TIME YELLOW AND CLEAR.
--- NOTE | 2017-05-29 23:45 | NUR ---
PT IN BED WITH EYES CLOSED AND CHEST RISING. NO S/S OF DISTRESS NOTED. NO S/S OF BLEEDING. RECEIVING D5NS TO LEFT SUBCLAVIAN PORT AT 10MLS/HR FOR MAINTENANCE. NO CONCERNS NOTED. CALL LIGHT IN REACH.
[2017-05-30] VITALS (24 sets, daily range): BP systolic 95–207; BP diastolic 68–106
--- NOTE | 2017-05-30 01:30 | NUR ---
PT IN BED WITH EYES OPEN WATCHING TV. REQUEST TO WASH UP WITH BATH GIVEN AND LINENS CHANGED. NO CONCERNS NOTED AT THIS TIME. CALL LIGHT IN REACH.
--- NOTE | 2017-05-30 03:45 | NUR ---
PT IN BED WITH EYES CLOSED AND CHEST RISING. NO S/S OF DISTESS NOTED. EASILY AROUSED TO VERBAL STIMULI. NO CONCERNS NOTED. CALL LIGHT IN REACH. WILL CONTINUE TO OBSERVE. NO S/S OF BLEEDING NOTED AT THIS TIME.
[2017-05-30 04:50] LABS: BASOPHILS 0.4 % (0-2); EOSINOPHILS 5.4 % (0-7); HEMATOCRIT 27.4 % (42.0-54.0); IMMATURE GRANULOCYTES 0.4 % (0-5); LYMPHOCYTES 18.3 % (15-50); MCH 29.6 pg (26.0-34.0); MCHC 32.8 g/dL (31.0-37.0); MCV 90.1 fL (80.0-100.0); MEAN PLATELET VOLUME 8.9 fL (7.4-10.4); MONOCYTES 11.4 % (2-11); NEUTROPHILS 64.1 % (40-80); PLATELET COUNT 225 10x3/uL (130-400); RBC 3.04 10x6/uL (4.20-6.10); RDW 15.5 % (11.5-14.5); WBC 8.2 10x3/uL (4.8-10.8)
[2017-05-30 05:09] LABS: ALBUMIN 1.6 g/dL (3.4-5.0); ANION GAP 15.4 mmol/L (8-16); BILIRUBIN - TOTAL 0.24 mg/dL (0.2-1.3); CALCIUM 7.5 mg/dL (8.5-10.1); CARBON DIOXIDE 19.9 mmol/L (21.0-32.0); CREATININE - SERUM 3.3 mg/dL (0.6-1.3); MAGNESIUM - SERUM 1.8 mg/dL (1.8-2.4); PHOSPHOROUS 3.8 mg/dL (2.5-4.9); PROTEIN - SERUM 4.8 g/dL (6.4-8.2)
[2017-05-30 05:10] LABS: POTASSIUM - SERUM 4.3 mmol/L (3.5-5.1)
--- NOTE | 2017-05-30 06:25 | NUR ---
PT IN BED WITH EYES CLOSED AND CHEST RISING. EASILY AROUSED TO VERBAL STIMULI. NO CONCERNS OR NEEDS NOTED AT THIS TIME. CALL LIGHT IN REACH. WILL CONTINUE TO OBSERVE.
--- NOTE | 2017-05-30 19:18 | NUR ---
PT IN BED WITH EYES OPEN WATCHING TV. NO COMPLAINTS OF PAIN OR DISCOMFORT. D5NS AT 10MLS/HR TO LEFT SUBCLAVIAN PORT. ALERT AND ORIENTED. CALL LIGHT IN REACH. WILL CONTINUE TO OBSERVE.
--- NOTE | 2017-05-30 21:30 | NUR ---
PT ALERT AND ORIENTED. RECEIVED MEDICATIONS PER MAR WITHOUT DIFFICULTY. NO COMPLANTS OR CONCERNS MADE KNOWN. CALL LIGHT IN REACH. WILL CONTINUE TO OBSERVE.
--- NOTE | 2017-05-30 23:25 | NUR ---
PT IN BED WITH EYES OPEN WATCHING TV. NO CONCERNS MADE KNOWN. FRESH WATER PROVIDED. PT PLEASANT. NO S/S OF DISTRESS NOTED. CALL LIGHT IN REACH. WILL CONTINUE TO OBSERVE.
[2017-05-31] VITALS (15 sets, daily range): BP systolic 142–169; BP diastolic 62–93
--- NOTE | 2017-05-31 01:21 | NUR ---
PT IN BED WITH EYES CLOSED AND CHEST RISING. NC WITH 2LPM. NO CONCERNS NOTED CALL LIGHT IN REACH. WILL CONTINUE TO OBSERVE.
--- NOTE | 2017-05-31 03:25 | NUR ---
PT IN BED WITH EYES OPEN WATCHING TV. USED URINAL WITH 625ML OUTPUT. NO S/S OF DISTRESS NOTED. CALL LIGHT IN REACH. WILL CONTINUE TO OBSERVE.
[2017-05-31 04:51] LABS: BASOPHILS 0.5 % (0-2); EOSINOPHILS 6.5 % (0-7); HEMATOCRIT 26.7 % (42.0-54.0); HEMOGLOBIN 8.8 g/dL (13.5-17.5); IMMATURE GRANULOCYTES 0.2 % (0-5); LYMPHOCYTES 20.5 % (15-50); MCH 29.7 pg (26.0-34.0); MCV 90.2 fL (80.0-100.0); MEAN PLATELET VOLUME 8.9 fL (7.4-10.4); MONOCYTES 8.3 % (2-11); PLATELET COUNT 234 10x3/uL (130-400); RBC 2.96 10x6/uL (4.20-6.10); RDW 15.7 % (11.5-14.5); WBC 8.3 10x3/uL (4.8-10.8)
[2017-05-31 05:16] LABS: ALBUMIN 1.5 g/dL (3.4-5.0); ANION GAP 13.1 mmol/L (8-16); BILIRUBIN - TOTAL 0.15 mg/dL (0.2-1.3); CALCIUM 7.5 mg/dL (8.5-10.1); CARBON DIOXIDE 21.8 mmol/L (21.0-32.0); CREATININE - SERUM 3.2 mg/dL (0.6-1.3); MAGNESIUM - SERUM 1.8 mg/dL (1.8-2.4); PHOSPHOROUS 3.8 mg/dL (2.5-4.9); POTASSIUM - SERUM 3.9 mmol/L (3.5-5.1); PROTEIN - SERUM 4.8 g/dL (6.4-8.2)
--- NOTE | 2017-05-31 06:53 | NUR ---
PT IN BED WITH EYES OPEN WATCHING TV. NO S/S OF DISTRESS. NO CONCERNS MADE KNOWN. CALL LIGHT IN REACH. HUMALOG HELD FOR FSBS OF 122. WILL CONTINUE TO OBSERVE.
--- NOTE | 2017-05-31 09:10 | NUR ---
AWAKE AND ALERT SKIN WARM AND DRY. ABD SOFT NON TENDER DENIES PAIN. ATE 100% OF BREAKFAST. TALKING ON CELL PHONE. RIGHT INFUSA PORT INFUSING WITH D5NS AT 10 ML HOUR. VOIDED CLEAR YELLOW URINE IN URINAL. PO MEDS TAKEN WITHOUT DIFFICULTY.
--- NOTE | 2017-05-31 13:09 | NUR ---
UP IN CHAIR FOR LUNCH. STATES HE TOOK A BATH A 4:30 AM . ATE 100% OF LUNCH. GOOD GAIT. NO DISTRESS OR SHORTNESS OF BREATH. DENIES PAIN. REPORT CALLED TO [facility] TRANSFERRING PER WHEEL CHAIR TO [phone]
--- NOTE | 2017-05-31 15:14 | NUR ---
REC'D FROM ICU NURSE SUSAN MCCRACKEN. ALERT AND ORIENTED X4. DENIED PAIN AT THIS TIME. DENIED NEEDS AT THIS TIME. IS WANTING TO GO HOME. NO DISTRESS NOTED. INSTRUCTED TO CALL IF NEEDED ANYTHING, VERBALIZED UNDERSTANDING. WILL CONT TO MONITOR. BED LOW, LOCKED, CALL LIGHT IN REACH.
[2017-05-31 16:50] LABS: CREATININE - URINE 13.4 mg/dL (30-125); PROTEIN - URINE 68.4 mg/dL (0.0-11.9)
--- NOTE | 2017-06-01 00:28 | NUR ---
PATIENT GIVEN A SNACK OF GRAM CRACKES AND JUICE FOR GLUCOSE LEVEL OF 64
[2017-06-01 01:42] VITALS: BP 155/71
--- NOTE | 2017-06-01 04:28 | NUR ---
NO CHANGES WITH THE PATIENT SINCE THE ASSESSMENT EXCEPT FOR THE BLOOD SUGAR BEING LOW NEAR MIDNIGHT. NO C/O SINCE THEN EITHER. BED HAS BEEN IN LOWEST LOCKED POSITION, CALL LIGHT WITHIN REACH.
--- NOTE | 2017-06-01 04:45 | NUR ---
PT RESTING QUIETLY, EYES CLOSED. RESP EVEN, UNLABORED. NO DISTRESS NOTED. CONTINUE MEDICAL ECONOMICS CONSULTANT'S PLAN OF CARE.
[2017-06-01 05:22] VITALS: BP 165/77
[2017-06-01 06:20] LABS: BASOPHILS 0.6 % (0-2); EOSINOPHILS 6.5 % (0-7); HEMOGLOBIN 9.2 g/dL (13.5-17.5); IMMATURE GRANULOCYTES 0.6 % (0-5); LYMPHOCYTES 19.3 % (15-50); MCH 29.6 pg (26.0-34.0); MCHC 32.9 g/dL (31.0-37.0); MEAN PLATELET VOLUME 9.1 fL (7.4-10.4); PLATELET COUNT 254 10x3/uL (130-400); RBC 3.11 10x6/uL (4.20-6.10); RDW 15.7 % (11.5-14.5); WBC 8.7 10x3/uL (4.8-10.8)
[2017-06-01 06:54] LABS: ALBUMIN 1.7 g/dL (3.4-5.0); ANION GAP 13.7 mmol/L (8-16); BILIRUBIN - TOTAL 0.2 mg/dL (0.2-1.3); CARBON DIOXIDE 22.5 mmol/L (21.0-32.0); CREATININE - SERUM 3.4 mg/dL (0.6-1.3); MAGNESIUM - SERUM 1.8 mg/dL (1.8-2.4); POTASSIUM - SERUM 4.2 mmol/L (3.5-5.1); PROTEIN - SERUM 4.9 g/dL (6.4-8.2)
[2017-06-01 07:00] LABS: % SATURATION 14 % (15-55); IRON 24 ug/dl (35-150); TOTAL IRON BIND CAPACITY 162 ug/dl (260-445); UNSAT IRON BIND CAPACITY 138 ug/dl (150-375)
--- NOTE | 2017-06-01 07:47 | NUR ---
REC'D LYING IN BED. ALERT AND ORIENTED X4. DENIED PAIN AT THIS TIME. DENIED NEEDS AT THIS TIME. INSTRUCTED TO CALL IF NEEDED ANYTHING, VERBALIZED UMDERSTANDING. NO DISTRESS NOTED. WILL ADMIN AM MEDS PRESCRIBED. BED LOW, LOCKED CALL LIGHT IN REACH. WILL CONT TO MONITOR.
[2017-06-01 09:03] VITALS: BP 173/78
--- NOTE | 2017-06-01 18:40 | NUR ---
HAD FIRST BM TODAY. BM WAS FIRM AND HAVE STREAKS OF BLOOD IN IT. TOLD DR. LINN ABOUT IT. ALSO TOLD EDNA DOZIER APN ABOUT IT BC SHE ORDERD A SUPP AND SOME STOOL SOFENERS. WAS TOLD TO DC THE SUPP AND KEEP THE STOOL SOFENERS. NEVER ADMIN THE SUPP
[2017-06-01 21:07] VITALS: BP 156/73
[2017-06-01 23:49] VITALS: BP 148/61
--- NOTE | 2017-06-02 03:56 | NUR ---
PATIENT RESTING IN BED WITH EYES CLOSED AND NO VISIBLE SIGNS OF DISTRESS. BED IN LOWEST POSITION AND CALL LIGHT WITHIN REACH.
[2017-06-02 03:59] VITALS: BP 146/65
[2017-06-02 05:35] LABS: BASOPHILS 0.4 % (0-2); EOSINOPHILS 5.2 % (0-7); HEMATOCRIT 29.4 % (42.0-54.0); HEMOGLOBIN 9.5 g/dL (13.5-17.5); IMMATURE GRANULOCYTES 0.7 % (0-5); LYMPHOCYTES 18.4 % (15-50); MCH 29.2 pg (26.0-34.0); MCHC 32.3 g/dL (31.0-37.0); MCV 90.5 fL (80.0-100.0); MEAN PLATELET VOLUME 8.8 fL (7.4-10.4); MONOCYTES 8.8 % (2-11); NEUTROPHILS 66.5 % (40-80); PLATELET COUNT 263 10x3/uL (130-400); RBC 3.25 10x6/uL (4.20-6.10); RDW 15.6 % (11.5-14.5); WBC 10.5 10x3/uL (4.8-10.8)
[2017-06-02 06:16] LABS: ALBUMIN 1.7 g/dL (3.4-5.0); ANION GAP 12.3 mmol/L (8-16); BILIRUBIN - TOTAL 0.19 mg/dL (0.2-1.3); CALCIUM 7.8 mg/dL (8.5-10.1); CARBON DIOXIDE 23.9 mmol/L (21.0-32.0); CREATININE - SERUM 3.3 mg/dL (0.6-1.3); MAGNESIUM - SERUM 1.9 mg/dL (1.8-2.4); POTASSIUM - SERUM 4.2 mmol/L (3.5-5.1); PROTEIN - SERUM 5.1 g/dL (6.4-8.2)
--- NOTE | 2017-06-02 07:35 | NUR ---
PT HERE FOR HYPERKALCEMIA AND RENAL FAILURE FOR THIS VISIT IV TO LEFT INFUSIPORT PATENT AND INTACT AT THIS TIME SRX2 BED AT LOWEST SETTING CALL LIGHT WITHIN REACH WILL CONTINUE TO MONITOR
--- NOTE | 2017-06-02 07:45 | NUR ---
PT ASSESSMENT COMPLETE AWAKE AND ALERT ORINETD X 3 LUNGS CLEAR BILATERAL. BSA X 4 QUADS PT WITH NO DISTRESS NOTED VOICES ALL NEEDS TO STAFF CALL IGHT INREACH SIDE RAILS UP X 2
[2017-06-02 08:02] VITALS: BP 169/75
[2017-06-02 12:20] VITALS: BP 147/71
[2017-06-02 16:21] VITALS: BP 167/73
[2017-06-02] MEDS ORDERED: LASIX40 MG PO (16:40)
[2017-06-02] MEDS ORDERED: NORVASC5 MG PO (16:40)
[2017-06-02] MEDS ORDERED: COLACE100 MG PO (16:40)
[2017-06-02] MEDS ORDERED: PEPCID20 MG PO (16:41)
[2017-06-02] MEDS ORDERED: SODIUM BICARBO325 MG PO (16:41)
[2017-06-02] MEDS ORDERED: ALBUTEROL2.5 MG/3 M INH (16:52)
[2017-06-02] MEDS ORDERED: BROVANA15 MCG/2 M INH (16:52)
[2017-06-02] MEDS ORDERED: IPRAT-ALBUT 0.5-3 ML UPD (16:52)
--- NOTE | 2017-06-02 17:21 | NUR ---
LAB DRAWN FOR TYPE AND CROSS PER TO DR LIN. NEW BLOOD BAND APPLIED WILL TRANSFUSE 2 UINTS PER ORDER
--- NOTE | 2017-06-02 19:57 | NUR ---
PT LYING IN BED, VISITOR AT BEDSIDE. PT STATES HE FEELS STABLE, IS READY TO BE D/C'D. PT DENIES ANY NEEDS AT THIS TIME. WILL CONTINUE TO MONITOR CLOSELY. PER DR. LIN, WILL HOLD OFF ON THE BLOOD TRANSFUSION AT THIS TIME R/T HIS BLOOD WORK BEING STABLE.
[2017-06-02 20:00] VITALS: BP 156/73
--- NOTE | 2017-06-03 00:21 | NUR ---
PT RESTING COMFORTABLY, ASKING FOR WATER, NO OTHER NEEDS. CONTINUE TO MONITOR CLOSELY. BED LOW, CALL LIGHT IN REACH, SIDE RAILS X 2, HOB 20 DEGREES.
[2017-06-03 04:00] VITALS: BP 145/66
[2017-06-03 07:25] LABS: BASOPHILS 0.3 % (0-2); EOSINOPHILS 6.1 % (0-7); HEMOGLOBIN 9.7 g/dL (13.5-17.5); IMMATURE GRANULOCYTES 0.7 % (0-5); LYMPHOCYTES 25.5 % (15-50); MCH 29.4 pg (26.0-34.0); MCHC 32.3 g/dL (31.0-37.0); MCV 90.9 fL (80.0-100.0); MEAN PLATELET VOLUME 8.9 fL (7.4-10.4); NEUTROPHILS 57.4 % (40-80); PLATELET COUNT 289 10x3/uL (130-400); RDW 15.2 % (11.5-14.5); WBC 10.1 10x3/uL (4.8-10.8)
[2017-06-03 07:47] LABS: ALBUMIN 1.7 g/dL (3.4-5.0); ANION GAP 12.4 mmol/L (8-16); BILIRUBIN - TOTAL 0.2 mg/dL (0.2-1.3); CALCIUM 7.9 mg/dL (8.5-10.1); CARBON DIOXIDE 23.8 mmol/L (21.0-32.0); CREATININE - SERUM 3.7 mg/dL (0.6-1.3); MAGNESIUM - SERUM 1.9 mg/dL (1.8-2.4); PHOSPHOROUS 3.9 mg/dL (2.5-4.9); POTASSIUM - SERUM 4.2 mmol/L (3.5-5.1); PROTEIN - SERUM 5.2 g/dL (6.4-8.2)
--- NOTE | 2017-06-03 08:20 | NUR ---
PT LYING IN BED, REFUSED INSULIN, STATED HE IS EXCITED TO GO HOME AND HAS NOT SLEPT BECAUSE OF BEING EXCITED. EXPLAINED TO PT THAT ORDERS AND PAPERWORK NEEDED BEFORE I CAN LET HIM GO. BED IN LOW POSITION, CALL LIGHT IN REACH
[2017-06-03 08:41] VITALS: BP 165/77
--- NOTE | 2017-06-03 10:28 | NUR ---
LYING IN BED,WITHOUT DISTRESS.CALL LIGHT IN REACH
--- NOTE | 2017-06-03 14:57 | NUR ---
CM REASSESSMENT NOTE: PATIENT IS DISCHARGING HOME TODAY/FRIEND DRIVING. [facility] DELIVERING PORTABLE O2 TO ROOM BEFORE DISCHARGE. [facility] WAS NOTIFIED OF DISCHARGE.
--- NOTE | 2017-06-03 15:38 | NUR ---
PT DC HOME
== END 2017-06-03 15:39 | disposition home health service (06) | DRG 356 ==
LOC: D.ER 10:53 → D.M2 15:40 → D.CVICU 15:40 → D.ICU 15:40 → D.CVICU 19:58 → D.M2 05-20 21:30 → D.ICU 05-27 19:37 → D.MS 05-31 14:03
PROVIDERS: Family Medicine; General Practice; Internal Medicine Gastroenterology; Internal Medicine Medical Oncology; Internal Medicine Nephrology; Internal Medicine Pulmonary Disease; Physician Assistant; ADMIT Family Medicine Adult Medicine
PROC: 0DJ08ZZ Inspection of Upper Intestinal Tract, Via Natural or Artificial Opening Endoscopic (ICD-10-PCS; 2017-05-20)
PROC: 0DJD8ZZ Inspection of Lower Intestinal Tract, Via Natural or Artificial Opening Endoscopic (ICD-10-PCS; principal; 2017-05-21 14:45)
PROC: 06H03DZ Insertion of Intraluminal Device into Inferior Vena Cava, Percutaneous Approach (ICD-10-PCS; 2017-05-23)
PROC: 0DJ08ZZ Inspection of Upper Intestinal Tract, Via Natural or Artificial Opening Endoscopic (ICD-10-PCS; 2017-05-28)
DX: K57.51 Diverticulosis of both small and large intestine without perforation or abscess with bleeding (principal); I50.23 Acute on chronic systolic (congestive) heart failure; J96.21 Acute and chronic respiratory failure with hypoxia; I26.99 Other pulmonary embolism without acute cor pulmonale; I82.890 Acute embolism and thrombosis of other specified veins; I13.0 Hypertensive heart and chronic kidney disease with heart failure and stage 1 through stage 4 chronic kidney disease, or unspecified chronic kidney disease; N18.4 Chronic kidney disease, stage 4 (severe); C34.90 Malignant neoplasm of unspecified part of unspecified bronchus or lung; F17.213 Nicotine dependence, cigarettes, with withdrawal; J44.1 Chronic obstructive pulmonary disease with (acute) exacerbation; D62 Acute posthemorrhagic anemia; J98.11 Atelectasis; N17.9 Acute kidney failure, unspecified; K26.3 Acute duodenal ulcer without hemorrhage or perforation; D64.9 Anemia, unspecified; E11.9 Type 2 diabetes mellitus without complications; I27.20 Pulmonary hypertension, unspecified; I08.1 Rheumatic disorders of both mitral and tricuspid valves; E87.5 Hyperkalemia; G47.33 Obstructive sleep apnea (adult) (pediatric); K21.9 Gastro-esophageal reflux disease without esophagitis; E78.5 Hyperlipidemia, unspecified; E11.65 Type 2 diabetes mellitus with hyperglycemia; E11.22 Type 2 diabetes mellitus with diabetic chronic kidney disease; K29.70 Gastritis, unspecified, without bleeding; K29.80 Duodenitis without bleeding

== ENCOUNTER 2017-06-05 15:07 | Inpatient (IN) | payer MEDICARE ==
[~2017-06-05] VITALS: Ht 185.4 cm; Wt 88.5 kg
--- NOTE | ~2017-06-05 | HEMODYNAMI ---
PATIENT:KERRI BAUTISTA SR MEDICAL RECORD: [id number] : 50 LOCATION:[facility] D.2304 ADMISSION DATE: 06/05/17 Generatedon:06/08/201717:20 Patient name: KERRI BAUTISTA Patient #: [id number] SSN: DO B: 1950 Date of study: 06/08/2017 Page: Of Hemodynamic Procedure Report Patient Data Patient Demographics Procedure consent was obtained First Name: KERRI Gender: Male Last Name: MICHELE Suffix: [facility] Initial: SURINDER : 1950 Patient #: [id number] Age: 66 year(s) Race: Black Additional ID: [id number] Contact details Address: [address] [place] [address] rd State: [place] City: [facility] Zip code: [address] Past Medical History History of disease Date Diagnosis Comments CAD CHF 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 PVD Hypertension Diabetes Allergies: No known allergies Admission Admission Data Admission Date: 06/05/2017 Admission Time: 21:14 Room #: D.2304 Procedure Procedure Types Cath Procedure Peripheral Cath Diagnostic Procedure Miscellaneous Procedure Description Procedure Date Procedure Date: 06/08/2017 Procedure Start Time: 16:50 Procedure Staff Name Function Abad Weinberg MD Performing Physician Mercy Calhoun RN Nurse Reynaldo Bustos RT Monitor Mag Clark RT Scrub Procedure Data Cath Procedure Fluoroscopy Diagnostic fluoroscopy Total fluoroscopy Time: 1.5 time: 1.5 min min Diagnostic fluoroscopy Total fluoroscopy dose: 34 dose: 34 mGy mGy Contrast Material Contrast Material Type Amount (ml) Isovue 300 8 Entry Location Entry Primary Successful Side Size Upsize Upsize Entry Closure Succes sful Closure Location (Fr) 1 (Fr) 2 (Fr) Remarks Device Remarks Femoral Right 6 Fr artery Short Diagnostic catheters Device Type Used For End Catheter Placement Merit Impress 5Fr SIM 1 Catheter Procedure Medications Medication Administration Route Dosage Lidocaine 1% added to field 20 Heparin Flush Bag added to field 2 bags (1000units/500ml NS) Heparin Flush Bag added to field 1 bags (1000units/500ml NS) Fentanyl I.V. 50 mcg Versed I.V. 1 mg Hemodynamics Rest Heart Rate: 88 (bpm) Snapshots Pre Cath Intra NCS Post Cath Vital Signs Time Heart Resp SPO2 etCO2 NIBP (mmHg) Rhythm Pain Sedation Rate (ipm) (%) (mmHg) Status Level (bpm) 16:43:04 90 18 97 16.5 150/91(125) NSR 0 (11) 10(A) , No pain 16:47:26 86 16 96 18 151/89(126) NSR 0 (11) 10(A) , No pain 16:51:51 85 16 97 17.3 151/91(125) NSR 0 (11) 10(A) , No pain 16:56:13 84 14 96 19.5 146/87(124) NSR 0 (11) 10(A) , No pain 17:00:29 82 14 96 19.5 130/82(108) NSR 0 (11) 10(A) , No pain 17:04:47 81 12 98 19.5 137/81(104) NSR 0 (11) 10(A) , No pain 17:09:07 81 12 98 12 142/80(111) NSR 0 (11) 10(A) , No pain 17:13:25 80 10 100 13.5 144/83(122) NSR 0 (11) 10(A) , No pain 17:17:45 80 11 100 18 158/93(127) NSR 0 (11) 10(A) , No pain Medications Time Medication Route Dose Verified Delivered Reason Notes Effect iveness by by 16:48:25 Lidocaine 1% added 20ml to vial field 16:48:35 Heparin Flush added 2 Bag to bags (1000units/500ml field NS) 16:48:39 Heparin Flush added 1 Bag to bags (1000units/500ml field NS) 16:53:08 Fentanyl I.V. 50 Abad Madrid for mcg Lenard Calhoun RN sedation 16:53:20 Versed I.V. 1 mg Abad Madrid for Lenard Calhoun RN sedation Procedure Log Time Note 16:28:19 Reynaldo Bustos RT (R) (CV) sent for patient. Start room use. 16:28:29 Time tracking: Regular hours 16:28:34 Plan of Care:Hemodynamics will remain stable., Cardiac rhythm will remain stable., Comfort level will be maintained., Respiratory function will remain adequate., Patient/ family verbilizes understanding of procedure., Procedure tolerated without complication., Recovers from procedure without complications.. 16:28:42 Patient received from ICU to IR Alert and oriented. Tansferred to table in Supine position. 16:28:47 Use device set IR Diagnostic 16:28:48 ACIST Syringe (92988) opened to sterile field. 16:28:48 ACIST Hand Control (61490) opened to sterile field. 16:28:49 ACIST Manifold (68639) opened to sterile field. 16:28:49 Bag Decanter (2002S) opened to sterile field. 16:28:50 Sterile Angiographic Pack opened to sterile field. 16:28:54 Correct patient and procedure confirmed by team. 16:28:56 Signed procedure consent form obtained from patient. 16:28:57 ECG and BP/O2 sat monitors applied to patient. 16:28:58 Full Disclosure recording started 16:29:02 - 16:29:05 H&P Date Dictated: 06/08/2017 Within 30 days and on chart.. 16:29:06 Pre-procedure instructions explained to patient. 16:29:06 Pre-op teaching completed and patient verbalized understanding. 16:29:09 Family in waiting room. 16:29:10 Patient NPO since Midnight. 16:29:14 Is the patient allergic to Iodine/contrast media? No. 16:29:16 Is patient on blood thinner?No 16:29:59 - 16:29:59 ----Pre-sedation anethsthesia assessment.---- 16:30:02 Previous problem with sedation/anesthesia? No ? 16:30:04 Snore? Yes 16:30:05 Sleep apnea? Yes 16:30:06 Deviated septum? No 16:30:09 Opens mouth fully? Yes 16:30:10 Sticks out tongue? Yes 16:30:15 Airway obstruction? Yes ca 16:30:21 Dentures? Yes in 16:30:24 Patient diabetic? Yes. 16:30:34 Patient pain scale 0/10 ?. 16:30:40 IV patent on arrival in port with 0.9% NaCl at [facility]. 16:30:42 Sharps counted by scrub and verified by R.N. 16:30:42 Alarms reviewed by R. N. 16:41:44 Vital chart was started 16:41:46 Baseline sample Acquired. 16:48:25 Lidocaine 1% 20ml vial added to field was administered by ; ; 16:48:35 Heparin Flush Bag (1000units/500ml NS) 2 bags added to field was administered by ; ; 16:48:39 Heparin Flush Bag (1000units/500ml NS) 1 bags added to field was administered by ; ; 16:50:24 Physician arrived 16:50:24 --------ALL STOP TIME OUT------ 16:50:25 Final Timeout: patient, procedure, and site verified with staff and physician. All members of the team are in agreement. 16:50:27 Right groin site verified by team. 16:50:31 Sedation plan: IV Moderate Sedation Medication:Versed, Fentanyl 16:50:39 Procedure started. 16:50:52 Local anesthetic to right femoral artery with Lidocaine 1% by Abad Weinberg MD.INITIAL ACCESS ONLY 16:51:03 A 6 Fr Short sheath was inserted into the Right Femoral artery 16:51:06 Micropuncture VSI 4FR kit opened to sterile field. 16:51:07 Cook VitrynSON 145cm guide wire opened to sterile field. 16:51:10 A Merit Impress 5Fr SIM 1 Catheter was advanced over the wire and used for . 16:51:11 TUBING Contrast Injection High Pressure ([id number]) opened to sterile field. 16:52:59 SHEATH 6FR [place] ([id number]) opened to sterile field. 16:53:08 Fentanyl 50 mcg I.V. was administered by Mercy Calhoun RN; for sedation ; 16:53:20 Versed 1 mg I.V. was administered by Mercy Calhoun RN; for sedation; 17:04:56 SUTURE ETHILON 2-0 BLK MONO FS opened to sterile field. 17:05:21 Procedure ended.(Physican Out) 17:10:55 Fluoroscopy time 01.50 minutes. 17:10:59 Fluoroscopy dose: 34 mGy 17:10:59 Flurop Dose total: 34 17:11:05 Contrast amount:Isovue 300 8ml. 17:11:07 Sharps counted by scrub and verified by R.N. 17:11:09 Insertion/operative site no bleeding no hematoma. 17:11:25 Post-op/insertion site Right Femoral artery dressed using a 4 x 4 and Tegaderm. 17:11:29 Post right femoral artery:stable 17:11:30 Post Procedure Pulses reassessed and unchanged 17:11:35 Post procedure instruction explained to patient.Patient verbalizes understanding. 17:11:36 Procedure and supply charges have been captured, reviewed, submitted an d are correct. 17:20:04 Report given to ICU. 17:20:07 Patient transfered to ICU with Bed. 17:20:32 Vital chart was stopped Device Usage Item Name Manufacture Quantity Catalog Hospital Part Current Minima l Lot# / Number Charge Number Stock Stock Serial# Code ACIST Syringe Acist 1 00588 428875 675416 996584 20 (02378) Medical Systems Inc ACIST Hand Acist 1 94087 446245 635835 643485 5 Control Medical (71160) Systems Inc ACIST Acist 1 87317 166901 652900 444577 5 Manifold Medical (12262) Systems Inc Bag Decanter Microtek 1 2001S 066002 36176 519003 5 (2001S) Medical Inc. Sterile Cardinal 1 [id number] 278488 574157 5 Angiographic Health Pack Micropuncture VSI VASCULAR 1 7266V 443609 646544 5 VSI 4FR kit SOLUTIONS [facility] Medical 1 Z03181 805192 900607 5 4426470 145cm guide wire Merit Impress Merit 1 [id number] 177137 475099 995444 5 5Fr SIM 1 Medical Catheter TUBING Merit 1 [id number] 434547 922647 457350 5 Contrast Medical Injection High Pressure (MTS747U) SHEATH 6FR Terumo 1 IZV858 322094 911547 874152 40 [place] (CSI231) SUTURE Ethicon 1 664H 964508 704026 5 ETHILON 2-0 BLK MONO FS Signature Audit [place] Stage Time Signature Unsigned Intra-Procedure 06/08/2017 Reynaldo 5:20:29 PM Juli RT (R) (CV) Signatures Monitor : Reynaldo Signature : Juli RT Date : Time : [facility] [address] [place] [address]
--- NOTE | ~2017-06-05 | HEMODYNAMI ---
PATIENT:KERRI BAUTISTA SR MEDICAL RECORD: [id number] : 50 LOCATION:[facility] D.2304 ADMISSION DATE: 06/05/17 Generatedon:06/09/201717:08 Patient name: KERRI BAUTISTA Patient #: [id number] SSN: DO B: 1950 Date of study: 06/09/2017 Page: Of Hemodynamic Procedure Report Patient Data Patient Demographics Procedure consent was obtained First Name: KERRI Gender: Male Last Name: MICHELE Suffix: [facility] Initial: SURINDER : 1950 Patient #: [id number] Age: 66 year(s) Race: Black Additional ID: [id number] Contact details Address: [address] [place] [address] rd State: [place] City: [facility] Zip code: [address] Past Medical History History of disease Date Diagnosis Comments CAD CHF 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 PVD Hypertension Diabetes Allergies: No known allergies Admission Admission Data Admission Date: 06/05/2017 Admission Time: 21:14 Room #: D.2304 Weight (lbs.): 179 Weight (kg.): 81.19 Procedure Procedure Types Cath Procedure Peripheral Cath Diagnostic Procedure Cath Peripheral Abd/Extremity Visceral/Mesenteric Mesenteric Arteriogram (Abd Artery) Procedure Description Procedure Date Procedure Date: 06/09/2017 Procedure Start Time: 16:58 Procedure Staff Name Function Abad Weinberg MD Performing Physician Gayle Juan RT Monitor Reynaldo Bustos RT Scrub Mercy Calhoun RN Nurse Gayle Juan RT Ad Taker Procedure Data Cath Procedure Diagnostic catheters Device Type Used For End Catheter Placement Merit Impress 5Fr SIM 1 Catheter Merit Impress KA2 5Fr 65CM catheter Hemodynamics Rest Heart Rate: 81 (bpm) Snapshots Pre Cath Intra NCS Post Cath Vital Signs Time Heart Resp SPO2 etCO2 NIBP (mmHg) Rhythm Pain Sedation Rate (ipm) (%) (mmHg) Status Level (bpm) 16:52:44 83 15 89 0 179/99(147) NSR 0 (11) 10(A) , No pain 16:57:24 80 15 95 17.1 189/97(147) NSR 0 (11) 10(A) , No pain 17:01:59 81 14 96 18.6 164/93(130) NSR 0 (11) 10(A) , No pain 17:06:33 83 13 96 17.9 176/94(144) NSR 0 (11) 10(A) , No pain Procedure Log Time Note 16:27:20 Patient Weight : 179 lbs 16:27:59 Use device set IR Diagnostic 16:28:03 Sterile Angiographic Pack opened to sterile field. 16:28:05 Bag Decanter (2002S) opened to sterile field. 16:49:44 Time tracking: Call back 16:49:53 Plan of Care:Hemodynamics will remain stable., Cardiac rhythm will remain stable., Comfort level will be maintained., Respiratory function will remain adequate., Patient/ family verbilizes understanding of procedure., Procedure tolerated without complication., Recovers from procedure without complications.. 16:50:50 Patient received from ICU to IR Alert and oriented. Tansferred to table in Supine position. 16:51:05 Signed procedure consent form obtained from guardian. 16:51:12 ECG and BP/O2 sat monitors applied to patient. 16:51:14 Vital chart was started 16:51:16 Baseline sample Acquired. 16:51:18 Full Disclosure recording started 16:51:22 - 16:51:28 H&P Date Dictated: 06/09/2017 Within 30 days and on chart.. 16:51:31 Pre-procedure instructions explained to patient. 16:51:32 Pre-op teaching completed and patient verbalized understanding. 16:51:35 Family unavailable. 16:51:42 Patient NPO since Lunch. 16:51:54 Patient allergic to No known allergies 16:53:44 Is the patient allergic to Iodine/contrast media? No. 16:53:47 Is patient on blood thinner?No 16:54:01 Patient diabetic? Yes. 16:54:11 If diabetic: On Metformin? Unknown 16:54:15 ----Pre-sedation anethsthesia assessment.---- 16:54:19 Previous problem with sedation/anesthesia? No ? 16:54:23 Snore? Yes 16:54:31 Sleep apnea? Yes 16:54:34 Deviated septum? No 16:54:37 Opens mouth fully? Yes 16:54:41 Sticks out tongue? Yes 16:54:50 Airway obstruction? Yes lung ca 16:55:01 Dentures? Yes in 16:55:27 Patient pain scale 0/10 ?. 16:55:35 IV patent on arrival in left forearm with 0.9% NaCl at [facility]. 16:55:53 Right groin area was prepped with betadine and draped in sterile fashio n 16:55:55 Alarms reviewed 16:56:23 Physician arrived 16:58:38 --------ALL STOP TIME OUT------ 16:58:39 Final Timeout: patient, procedure, and site verified with staff and physician. All members of the team are in agreement. 16:58:57 Procedure started. 16:59:08 Cook BENTSON 145cm guide wire opened to sterile field. 17:00:16 A Merit Impress 5Fr SIM 1 Catheter was advanced over the wire and used for . 17:00:25 A Merit Impress KA2 5Fr 65CM catheter was advanced over the wire and used for . 17:03:40 catheter replaced. 17:03:49 Procedure ended.(Physican Out) 17:08:34 Procedure and supply charges have been captured, reviewed, submitted an d are correct. 17:08:55 Vital chart was stopped Device Usage Item Name Manufacture Quantity Catalog Hospital Part Current Minimal Lot# / Number Charge Number Stock Stock Serial# Code Sterile Cardinal 1 [id number] 713104 5 Angiographic Health Pack Bag Decanter Microtek 1 125658 88400 666461 5 () ExactFlat Inc. Cook BENTSON Cook Medical 1 [id number] 649922 5 [id number] 145cm guide wire Merit Merit 1 [id number] 727435 611386 175266 5 Impress 5Fr Medical SIM 1 Catheter Merit Merit 1 [id number] 468304 260935 5 Impress KA2 Medical 5Fr 65CM catheter Signature Audit [place] Stage Time Signature Unsigned Intra-Procedure 06/09/2017 Gayle Juan 5:08:52 PM RT(R) Signatures Monitor : Gayle Juan RT Signature : Date : Time : [place] [id number] [facility] [place] [address]
[~2017-06-05 15:07] MED LIST changes: +ALBUTEROL2.5 MG/3 M INH; +ALDACTONE25 MG PO; +BROVANA15 MCG/2 M INH; +COLACE100 MG PO; +IPRAT-ALBUT 0.5-3 ML UPD; +NOVOLIN 70/30 110 ML; +PEPCID20 MG PO; +PHENERGAN25 M1 PO; +PROCRIT/EP40000 UNIT SQ; +SODIUM BICARBO325 MG PO
[2017-06-05 15:59] LABS: BASOPHILS 0.1 % (0-2); EOSINOPHILS 0.8 % (0-7); HEMATOCRIT 32.6 % (42.0-54.0); HEMOGLOBIN 10.5 g/dL (13.5-17.5); IMMATURE GRANULOCYTES 0.4 % (0-5); LYMPHOCYTES 9.6 % (15-50); MCH 29.2 pg (26.0-34.0); MCHC 32.2 g/dL (31.0-37.0); MCV 90.8 fL (80.0-100.0); MEAN PLATELET VOLUME 9.4 fL (7.4-10.4); MONOCYTES 7.9 % (2-11); NEUTROPHILS 81.2 % (40-80); PLATELET COUNT 242 10x3/uL (130-400); RBC 3.59 10x6/uL (4.20-6.10); RDW 15.2 % (11.5-14.5); WBC 9.7 10x3/uL (4.8-10.8)
[2017-06-05 16:03] LABS: ALBUMIN 1.8 g/dL (3.4-5.0); ANION GAP 21.5 mmol/L (8-16); BILIRUBIN - TOTAL 0.89 mg/dL (0.2-1.3); CARBON DIOXIDE 18.1 mmol/L (21.0-32.0); CREATININE - SERUM 5.3 mg/dL (0.6-1.3); POTASSIUM - SERUM 4.6 mmol/L (3.5-5.1); PROTEIN - SERUM 5.7 g/dL (6.4-8.2)
[2017-06-05 23:07] VITALS: BP 145/103
--- NOTE | 2017-06-05 23:07 | NUR ---
PT BROUGHT TO UNIT VIA BED BY 2 ER NURSES. ALL MONITORING INITIATED. PT IS ALERT AND ORIENTED. STATES HE IS COLD, TEMP IS 100.4 AXILLARY.TYLENOL WAS GIVEN IS ER, ROOM TEMP DECREASED AND THIN BLANKET PROVIDED, INSTRUCTED PT THAT SINCE HIS TEMP IS HIGH HE COULD ONLY HAVE A THIN BLANKET AT THIS TIME, HE VERBALIZED UNDERSTANDING. ADULT PROTECTIVE UNDERWEAR ON, MODERATE AMOUNT OF SOFT BROWN FECES NOTED, PT CLEANED AND NEW PROCTECTIVE UNDERWEAR PROVIDED PER REQUEST. SEE FLOW SHEET FOR ASSESSMENT. NS STARTED AT 125 MLS/HR VIA LT CHEST INFUSA PORT, SITE IS CDI. BED IN LOWEST POSITION. CALL LIGHT WITHIN REACH. WILL CONTINUE TO MONITOR.
[2017-06-06] VITALS (24 sets, daily range): BP systolic 96–148; BP diastolic 53–103; BMI 24.0; BMI 23.2
--- NOTE | 2017-06-06 01:00 | NUR ---
PT LAYING IN BED RESTING, EYES CLOSED. DENIES NEEDS. WILL CONTINUE TO MONITOR.
--- NOTE | 2017-06-06 03:50 | NUR ---
PT LAYING IN BED RESTING, ADULT PROTECTIVE UNDERWEAR CHECKED, SMALL SOFT BROWN STOOL NOTED, PT CLEANED AND CHANGED, AND NEW PROTECTIVE UNDERWEAR PUT ON PER REQUEST. DENIES OTHER NEEDS. WILL CONTINUE TO MONITOR.
[2017-06-06 04:03] LABS: BASOPHILS 0.1 % (0-2); HEMATOCRIT 31.7 % (42.0-54.0); HEMOGLOBIN 10.1 g/dL (13.5-17.5); IMMATURE GRANULOCYTES 0.9 % (0-5); LYMPHOCYTES 7.6 % (15-50); MCH 28.4 pg (26.0-34.0); MCHC 31.9 g/dL (31.0-37.0); MEAN PLATELET VOLUME 10.3 fL (7.4-10.4); MONOCYTES 4.1 % (2-11); NEUTROPHILS 84.3 % (40-80); PLATELET COUNT 217 10x3/uL (130-400); RBC 3.56 10x6/uL (4.20-6.10); RDW 14.9 % (11.5-14.5); WBC 8.2 10x3/uL (4.8-10.8)
[2017-06-06 04:14] LABS: ANION GAP 18.6 mmol/L (8-16); CALCIUM 7.2 mg/dL (8.5-10.1); CARBON DIOXIDE 19.1 mmol/L (21.0-32.0); CREATININE - SERUM 5.3 mg/dL (0.6-1.3); POTASSIUM - SERUM 4.7 mmol/L (3.5-5.1)
--- NOTE | 2017-06-06 04:21 | NUR ---
FAMILY AT BEDSIDE. UPDATE GIVEN AND QUESTIONS ANSWERED. WATER PROVIDED PER PT REQUEST. PT DENIES OTHER NEEDS. WILL CONTINUE TO MONITOR.
--- NOTE | 2017-06-06 06:40 | NUR ---
PT LAYING IN BED RESTING, ADULT PROTECTIVE UNDERWEAR CHECKED AND SMALL BOWEL MOVEMENT NOTED, PT CLEANED AND NEW PROTECTIVE UNDERWEAR PUT ON. PT DENIES NEEDS. WILL CONTINUE TO MONITOR.
--- NOTE | 2017-06-06 07:30 | NUR ---
RECEIVED PT FOR CARE. PT RESTING IN BED WITH EYES OPEN. CALL LIGHT WITHIN REACH. ASSESSMENT COMPLETED. VSS AT THIS TIME.
--- NOTE | 2017-06-06 07:45 | NUR ---
DR. GASPAR AT BEDSIDE. SPOKE WITH PT'S DAUGHTER AND UPDATED HER ON PT'S STATUS AND PLAN OF CARE.
--- NOTE | 2017-06-06 12:45 | NUR ---
PT PLACED ON CONTACT ISOLATION. FAMILY NOTIFIED AT BEDSIDE AND INSTRUCTED ON PROPER ISOLATION REQUIREMENTS.
[2017-06-06 13:18] LABS: APPEARANCE SLT CLOUDY (CLEAR); COLOR YELLOW (YELLOW); GLUCOSE 250 mg/dL (NEGATIVE); NITRITE NEGATIVE (NEGATIVE); PROTEIN 3+ mg/dL (NEGATIVE); SPECIFIC GRAVITY 1.015 (1.005-1.020)
[2017-06-06 13:20] LABS: AMORPHOUS SEDIMENT <1+ /lpf (NONE SEEN); BACTERIA MODERATE /hpf (NONE SEEN); BILIRUBIN NEGATIVE (NEGATIVE); EPITHELIAL CELLS OCC /hpf (0-5); GRANULAR CAST OCC /lpf (NONE SEEN); KETONE NEGATIVE (NEGATIVE); MUCUS <1+ /lpf (NONE SEEN); RED CELLS - URINE 0-5 /hpf (0-5); UROBILINOGEN NORMAL (NORMAL); WHITE CELLS - URINE RARE /hpf (0-5)
--- NOTE | 2017-06-06 18:02 | NUR ---
PT SET UP WITH SUPPER TRAY. CALL LIGHT WITHIN REACH.
--- NOTE | 2017-06-06 19:00 | NUR ---
REPORT RECEIVED, SHIFT ASSESSMENT COMPLETE. SEE FLOWSHEET. DENIES NEED. CL IN REACH. VSS.
--- NOTE | 2017-06-06 21:00 | NUR ---
AT BEDSIDE, STATES PATIENT IS ITCHING AND REQUESTS BENADRYL. DR SERA BIANCHI, ORDERS FOR BENADRYL IV RECEIVED.
--- NOTE | 2017-06-06 23:00 | NUR ---
CALLIOPE PLAYER, KAIDEN NOTIFIED OF NEW ORDERS THAT NEED PULLED.
--- NOTE | 2017-06-06 23:30 | NUR ---
ASSISTANT PROFESSOR OF COMMUNICATION NOTIFIED AGAIN OF MEDICATIONS NEEDING PULLED.
[2017-06-07] VITALS (17 sets, daily range): BP systolic 112–164; BP diastolic 66–96
--- NOTE | 2017-06-07 01:00 | NUR ---
WATCHING TV, GILBERT GIVEN PER REQUESTS. DENIES FURTHER NEED. CL IN REACH.
--- NOTE | 2017-06-07 03:00 | NUR ---
REASSESSMENT COMPLETE, SEE FLOWSHEET. NO ACUTE CHANGES.
--- NOTE | 2017-06-07 05:00 | NUR ---
COFFEE GIVEN PER REQUEST.
[2017-06-07 05:19] LABS: BASOPHILS 0 % (0-2); EOSINOPHILS 0.2 % (0-7); IMMATURE GRANULOCYTES 0.2 % (0-5); LYMPHOCYTES 4.1 % (15-50); MCH 28.5 pg (26.0-34.0); MCHC 32.1 g/dL (31.0-37.0); MCV 88.6 fL (80.0-100.0); MEAN PLATELET VOLUME 10.3 fL (7.4-10.4); MONOCYTES 4.7 % (2-11); NEUTROPHILS 90.8 % (40-80); PLATELET COUNT 179 10x3/uL (130-400); RBC 3.16 10x6/uL (4.20-6.10); RDW 15.2 % (11.5-14.5); WBC 9.1 10x3/uL (4.8-10.8)
[2017-06-07 05:36] LABS: CARBON DIOXIDE 15.5 mmol/L (21.0-32.0); CREATININE - SERUM 4.9 mg/dL (0.6-1.3); PHOSPHOROUS 5.8 mg/dL (2.5-4.9); POTASSIUM - SERUM 4.5 mmol/L (3.5-5.1); VANCOMYCIN - RANDOM 19.5 ug/mL (10.0-20.0)
--- NOTE | 2017-06-07 10:21 | NUR ---
MICRO TECH INFORMED NURSE OF NEED FOR DORLET ISOLATION, ISOLATION CHANGED TO DROPLET FROM CONTACT PER INSTRUCTIONS.
--- NOTE | 2017-06-07 17:57 | NUR ---
REPORT CALLED TO JUAN NURSE,
--- NOTE | 2017-06-07 18:21 | NUR ---
PATIENT TO ROOM FROM ICU, PATIENT IS ALERT AND ORIENTED AT THIS TIME. PATIENT HAS A L CHEST PORT WITH NS INFUSING AT 10ML/HR. PATIENT DENIES ANY NEEDS OR PAIN AT THIS TIME. CPOC
--- NOTE | 2017-06-07 18:25 | NUR ---
INFORMED PATIENT SHIFT WAS ALMOST OVER. PATIENT DENIES ANY FURTHER NEEDS AT THIS TIME. CPOC
[2017-06-08] VITALS (21 sets, daily range): BP systolic 133–167; BP diastolic 66–101
--- NOTE | 2017-06-08 02:23 | NUR ---
ABT UP AND INFUSING. PT RESTING WITH EYES CLOSED. ABARCA PATENT TO BEDSIDE DRAIN BAG. CPOC.
--- NOTE | 2017-06-08 03:30 | NUR ---
PT UP AND TRYING TO GET TO BATHROOM UNASSISTED. STAFF IMMEDIATELY TO ROOM. HE WAS TANGLED IN HIS IV TUBING, HIS O2 TUBING AND HIS ABARCA WAS WOUND AROUND HIS LEG. HE WAS HEADING OUT OF THE ROOM INSTEAD OF INTO THE BATHROOM AND WAS VERY CONFUSED TO WHERE HE WAS GOING. ASSISTED UNTIL HE WAS INTO BATHROOM. PT INCONTINENT OF LIQUID STOOL, DARK RED IN COLOR. CARE PROVIDED. PT CLEANSED. LINENS CHANGED. FLOOR CLEANED. WILL MONITOR.
[2017-06-08 06:31] LABS: BASOPHILS 0.1 % (0-2); EOSINOPHILS 0 % (0-7); IMMATURE GRANULOCYTES 0.7 % (0-5); LYMPHOCYTES 4.6 % (15-50); MCH 28.1 pg (26.0-34.0); MCHC 32.7 g/dL (31.0-37.0); MONOCYTES 7.6 % (2-11); PLATELET COUNT 186 10x3/uL (130-400); RBC 2.56 10x6/uL (4.20-6.10); RDW 15.6 % (11.5-14.5)
[2017-06-08 06:37] LABS: ALBUMIN 1.3 g/dL (3.4-5.0); ANION GAP 19.2 mmol/L (8-16); BILIRUBIN - TOTAL 0.5 mg/dL (0.2-1.3); CARBON DIOXIDE 15.3 mmol/L (21.0-32.0); CREATININE - SERUM 4.7 mg/dL (0.6-1.3); POTASSIUM - SERUM 4.5 mmol/L (3.5-5.1); PROTEIN - SERUM 4.8 g/dL (6.4-8.2)
[2017-06-08 06:38] LABS: HEMOGLOBIN 7.2 g/dL (13.5-17.5); MCV 85.9 fL (80.0-100.0); WBC 13.5 10x3/uL (4.8-10.8)
[2017-06-08 06:41] LABS: CALCIUM 6.9 mg/dL (8.5-10.1)
--- NOTE | 2017-06-08 07:28 | NUR ---
CALLED DR ZAMORA TO NOTIFY HER OF PATIENTS CRITICAL HEMOGLOBIN OF 7.2, PATIENT HAS AN ACTIVE GI BLEED, WHEN PATIENT STANDS TO GO TO THE RESTROOM, BLOOD RUNS DOWN PATIENTS LEGS. PATIENT IS CONFUSED, WON'T STAY IN BED, BED ALARM IS ON AT THIS TIME. DR ZAMORA ORDERED 2 UNITS OF PRBCS TO BE GIVEN AND PATIENT TO BE TRANSFERRED TO ICU. ALSO ORDERED TO CONSULT DR MORENO. CONSULT PUT IN. CALLED ALARM TECHNICIAN FOR BED, PATIENT IS GOING TO 2304. WILL CALL FOR REPORT. CPOC
--- NOTE | 2017-06-08 07:50 | NUR ---
PATIENT TRANSFERRED TO ICU, REPORT GIVEN TO NAWAF, VOICE NO QUESTIONS. DR MORENO PAGED FOR CONSULT.
--- NOTE | 2017-06-08 08:04 | NUR ---
SPOKE WITH DR MORENO REGARDING CONSULT. STATES HE IS AWARE.
--- NOTE | 2017-06-08 08:29 | NUR ---
SPOKE WITH SLADE WHO STATES SHE CALLED DR MEDELLIN FOR CONSULT. HE STATED "I WILL BE IN LATER."
[2017-06-08 08:44] LABS: BASOPHILS 0.1 % (0-2); EOSINOPHILS 0.1 % (0-7); HEMATOCRIT 21.4 % (42.0-54.0); IMMATURE GRANULOCYTES 0.6 % (0-5); LYMPHOCYTES 2.9 % (15-50); MCH 28.5 pg (26.0-34.0); MCHC 32.7 g/dL (31.0-37.0); MEAN PLATELET VOLUME 10.1 fL (7.4-10.4); MONOCYTES 9.7 % (2-11); NEUTROPHILS 86.6 % (40-80); PLATELET COUNT 182 10x3/uL (130-400); RBC 2.46 10x6/uL (4.20-6.10); RDW 15.6 % (11.5-14.5); WBC 13.9 10x3/uL (4.8-10.8)
--- NOTE | 2017-06-08 09:38 | NUR ---
RECEIVED FROM FLOOR PER BED WITH GI BLEED. AWAKE AND ALERT SKIN WARM AND DRY. BILATERAL LUNG SOUNDS DIMINISHED BUT CLEAR. ABD TENDER TO TOUCH ZACH WHEN HE COUGHS. SOFT WITH BOWEL SOUNDS PRESENT. 1+ PITTING EDEMA IN ANKLES. PERIPHERAL PULSES PALABLE. LEFT INFUSA PORT TO SALINE LOCK. SITE WITH REDNESS OR DRAINAGE. OXYGEN AT 2 LITERS PER NC. 1ST UNIT OF BLOOD STARTED. NO IMMEDIATE REACTION. WITH GREAT ENCOURAGEMENT MUCOMYST TAKEN WITH APPLE JUICE. DR. MORENO NOTIFIED OF CONSULT. RADIOLOGY NOTIFIED OF IR CONSULT. ABARCA CATH PATENT DRAINING CLEAR YELLOW URINE.
[2017-06-08 16:02] LABS: BASOPHILS 0.1 % (0-2); EOSINOPHILS 0.1 % (0-7); HEMATOCRIT 25.6 % (42.0-54.0); HEMOGLOBIN 8.4 g/dL (13.5-17.5); IMMATURE GRANULOCYTES 0.7 % (0-5); LYMPHOCYTES 4.9 % (15-50); MCH 27.9 pg (26.0-34.0); MCHC 32.8 g/dL (31.0-37.0); MEAN PLATELET VOLUME 10.4 fL (7.4-10.4); MONOCYTES 9.7 % (2-11); NEUTROPHILS 84.5 % (40-80); PLATELET COUNT 175 10x3/uL (130-400); RBC 3.01 10x6/uL (4.20-6.10); RDW 15.6 % (11.5-14.5); WBC 13.3 10x3/uL (4.8-10.8)
[2017-06-08 16:11] LABS: APTT 31.9 SECONDS (22.8-39.4); INR 1.26 (0.85-1.17); PROTIME 15.4 SECONDS (11.6-15.0)
--- NOTE | 2017-06-08 18:53 | NUR ---
1740 RETURNED TO ROOM FROM [facility] IN [place]. RIGHT GROIN HAS ARTERIAL SHEATH INFUSING WITH VASOPRESSIN AT 0.2 UNITS/MIN. PER PUMP. WITH NS AT 25 ML HOUR GOING IN SHEATH. SITE DRESSING DRY AND INTACT. NO DRAINAGE AT SITE. PATIENT INSTRUCTED ON KEEPING RIGHT LEG STRAIGHT. RIGHT LEG RESTRAINT PLACED LOOSELY TO REMIND HIM KEEP LEG STRAIGHT. PATIENT AWAKE AND ALERT SKIN WARM AND DRY. LUNGS CLEAR ABD SOFT WITH BOWEL SOUNDS. PERIPHERAL PULSES WEAK. ABARCA CATH PATENT WITH CLEAR YELLOW URINE. PATIENT HAD TWO VERY LARGE LIQUID MAROON STOOLS, REQUIRED COMPLETE BED CHANGE ALL THE WAY DOWN TO HIS KNEE. NS INFUSING AT 100 ML HOUR PER LEFT SUBCLAVIAN INFUSA PORT. MONITOR SR.
--- NOTE | 2017-06-08 19:15 | NUR ---
ASSESSMENT COMPLETE. S1S2. NSR SHOWING ON MONITOR. RADIAL PULSES +2; PEDAL PULSES +1. PERRLA. YELLOW SCLERA. UPON ENTERING THE ROOM; PT HAD REMOVED INFUSAPORT NEEDLE AND WAS ATTEMPTING TO GET OUT OF BED. REORIENTED PT. CALL LIGHT IN REACH. WEAKNESS NOTED.
--- NOTE | 2017-06-08 19:45 | NUR ---
PT HAD LARGE MAROON STOOL; LIQUID. PT ATTEMPTING TO GET OUT OF BED. C/O NEEDING TO PEE; EXPLAINED ABARCA CATH IN PLACE; AND NEED FOR LEG TO REMAIN STRAIGHT. STAT LOCK PLACED TO RIGHT THIGH. PT CLEAN; COMPLETE LINEN CHANGE.
[2017-06-08 20:16] LABS: HEMATOCRIT 25.2 % (42.0-54.0); HEMOGLOBIN 8.3 g/dL (13.5-17.5); MCHC 32.9 g/dL (31.0-37.0); MCV 85.1 fL (80.0-100.0); MEAN PLATELET VOLUME 9.5 fL (7.4-10.4); NEUTROPHILS 82.5 % (40-80); PLATELET COUNT 149 10x3/uL (130-400); RBC 2.96 10x6/uL (4.20-6.10); RDW 16.4 % (11.5-14.5); WBC 15.3 10x3/uL (4.8-10.8)
--- NOTE | 2017-06-08 22:00 | NUR ---
NO VISITORS DURING VISITATION.
--- NOTE | 2017-06-08 23:20 | NUR ---
REASSESSMENT COMPLETE. NO ACUTE CHANGES FROM PREVIOUS ASSESSMENT. VSS. NO DISTRESS NOTED. WILL CONTINUE TO MONITOR.
[2017-06-09] VITALS (28 sets, daily range): BP systolic 148–187; BP diastolic 71–106; Ht 185.4 cm; Wt 88.5 kg
--- NOTE | 2017-06-09 00:30 | NUR ---
PT ATTEMPTING TO GET OUT OF BED; BED ALARM IN PLACE. REORIENTED PT.
--- NOTE | 2017-06-09 03:10 | NUR ---
REASSESSMENT COMPLETE. NO ACUTE CHANGES FROM PREVIOUS ASSESSMENT. SEE FLOWSHEET FOR DETAILS.
--- NOTE | 2017-06-09 05:25 | NUR ---
UPON ENTERING ROOM; PT WAS TANGLED IN SHEATH LINES; IV LINES; AND ABARCA LINES. PT WAS STATED UNSURE HOW IT HAPPENED. WHEN COMPLETING I/O PREVIOUSLY; LINES WERE IN CORRECT LOCATION. DRESSING AT FEMORAL CATH SITE WAS OPEN; AREA CLEANED NEW DRESSING APPLIED.
[2017-06-09 05:31] LABS: BASOPHILS 0.1 % (0-2); EOSINOPHILS 0 % (0-7); HEMATOCRIT 24.3 % (42.0-54.0); HEMOGLOBIN 7.9 g/dL (13.5-17.5); IMMATURE GRANULOCYTES 1.1 % (0-5); LYMPHOCYTES 3.5 % (15-50); MCH 28.2 pg (26.0-34.0); MCHC 32.5 g/dL (31.0-37.0); MCV 86.8 fL (80.0-100.0); MEAN PLATELET VOLUME 10.1 fL (7.4-10.4); NEUTROPHILS 88.3 % (40-80); PLATELET COUNT 152 10x3/uL (130-400); RDW 15.9 % (11.5-14.5); WBC 11.9 10x3/uL (4.8-10.8)
[2017-06-09 05:55] LABS: ANION GAP 25.6 mmol/L (8-16); CALCIUM 7.3 mg/dL (8.5-10.1); CARBON DIOXIDE 13.8 mmol/L (21.0-32.0); CREATININE - SERUM 4.2 mg/dL (0.6-1.3); POTASSIUM - SERUM 4.4 mmol/L (3.5-5.1); VANCOMYCIN - TROUGH 19.7 ug/mL (10.0-20.0)
--- NOTE | 2017-06-09 06:00 | NUR ---
NO VISITORS DURING VISITATION.
--- NOTE | 2017-06-09 07:51 | NUR ---
Vancomycin random level 19.7. Not dosing Vancomycin today and ordering random for tomorrow 12-12.
[2017-06-09 08:26] LABS: BASOPHILS 0.2 % (0-2); EOSINOPHILS 0 % (0-7); HEMATOCRIT 24.6 % (42.0-54.0); HEMOGLOBIN 8.1 g/dL (13.5-17.5); IMMATURE GRANULOCYTES 0.7 % (0-5); MCH 28.4 pg (26.0-34.0); MCHC 32.9 g/dL (31.0-37.0); MCV 86.3 fL (80.0-100.0); MONOCYTES 7.1 % (2-11); PLATELET COUNT 156 10x3/uL (130-400); RBC 2.85 10x6/uL (4.20-6.10); RDW 15.9 % (11.5-14.5); WBC 11.7 10x3/uL (4.8-10.8)
--- NOTE | 2017-06-09 09:17 | NUR ---
PT TOOK AM MEDS WITH MUCH ENCOURAGEMENT HE IS CONFUSED AND STATED HE DOES NOT WANT THEM BECAUSE THEY TASTE BAD, EXPLAINED EACH PILL, IR SAW PT AND ASSESSED R PAT, UPDATED THAT HE WAS CONFUSED AND I WAS TOLD IN REPORT HE BENT HIS LEG DURING THE NIGHT, WILL CONTINUIE TO MONITOR
--- NOTE | 2017-06-09 09:42 | NUR ---
CALLED PT TO ASK FOR BLOOD CONSENT PT IS CONFUSED, NO ANSWER
--- NOTE | 2017-06-09 10:15 | NUR ---
Nutrition follow-up: Diet: clear liquids due to GI bleed Pt confused at this time. Glucose elevated due to [employer]uMedor[employer] +BM Wt: 179#; down 3# from admit Will need to start nutrition support if diet unable to advance to at least full liquids within 24-[address] following[address]
--- NOTE | 2017-06-09 10:25 | NUR ---
* Is the patient Alert and Oriented? Yes 0 * How many steps to enter\exit or inside your home? 4 0 * PCP Dr. Braswell 0 * Pharmacy [facility] 0 * Preadmission Environment Home with Family 0 * ADLs Partial Dependent 0 * Partial ADLs (Assistance needed) Ambulation Bathing Dressing Medication Management Toileting 0 * Equipment CPAP 0 * List name and contact numbers for known caregivers / representatives who currently or will assist patient after discharge: Spouse - Ashley [phone], Friend - Trever [phone] * Community resources currently utilized Home Health 0 * Please name any agencies selected above. [facility] 0 * Additional services required to return to the preadmission environment? Yes 0 * Can the patient safely return to the preadmission environment? Yes 0 * Has this patient been hospitalized within the prior 30 days at any hospital? Yes Patient Name: KERRI BAUTISTA Admission Status: ER Accout number: [id number] Admission Date: 06-05-2017 : 1950 Admission Diagnosis: Attending: TRINI ZAMORA Current LOS: 4 Planned Disposition: Home with Home Health Primary Insurance: [employer] [facility] Discharge Planning Comments: CM met with patient to assess dc plans/needs. Patient states he lives at home with his . He requires assistance with most ADL's. He uses a walker at home. Home O2 was arranged and delivered following his previous hospitalization through [facility]. Home Health referral was sent as well, however he was not home long enough for [facility] to make a visit. At discharge, he plans to return home with his family and resume services. CM will follow and assist as needed. [employer] Iron[employer]: Viry Steward
--- NOTE | 2017-06-09 10:44 | NUR ---
PT CALLED FOR BLOOD CONSENT, L CHEST PORT ACCESSED WITHOUT DIFFICULTY AND BLOOD STARTED
--- NOTE | 2017-06-09 12:46 | NUR ---
BLOOD INFUSING WITHOUT ANY SIGNS OF REACTIONS, PT DENIES PAIN, R GROIN WITH NO SIGNS OF HEMATOMA, DAUGHTER AND GRANDCHILDREN AT BEDSIDE AND DENY NEEDS
--- NOTE | 2017-06-09 14:00 | NUR ---
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 DISCUSSED WITH CHARGE NURSE, ASSESSED PT WHO HAS NO MARKINGS ON NECK TO INDICATE CHOKING AND ALL PARAMETERS ON MONITOR SET TO ALARM IF HR, BP, RR AND SPO2 WERE TO CHANGE THEY WERE AT BEGINNING OF SHIFT.
[2017-06-09 14:29] LABS: BASOPHILS 0.1 % (0-2); EOSINOPHILS 0 % (0-7); HEMOGLOBIN 8.3 g/dL (13.5-17.5); IMMATURE GRANULOCYTES 0.8 % (0-5); LYMPHOCYTES 8.5 % (15-50); MCH 28.2 pg (26.0-34.0); MCHC 33.2 g/dL (31.0-37.0); MEAN PLATELET VOLUME 9.7 fL (7.4-10.4); MONOCYTES 8.6 % (2-11); PLATELET COUNT 147 10x3/uL (130-400); RBC 2.94 10x6/uL (4.20-6.10); RDW 15.8 % (11.5-14.5)
--- NOTE | 2017-06-09 14:39 | NUR ---
PT HAD TOTAL BED BATH AND LINEN CHANGE, VSS, KEPT RIGHT LEG STRAIGHT, GROIN SITE CONTINUES WITH NO SIGNS OF HEMATOMA, DENIES PAIN, WILL CONTINUE TO MONITOR
--- NOTE | 2017-06-09 15:54 | NUR ---
VASOPRESSIN TO PUMP READING OCCLUDED, IR NURSE ANNEMARIE NOTIFIED WHO NOTIFIED DR TURNER, HE CAME TO ASSESS SITE AND SAID THAT IT IS OCCLUDED AND TO TURN PUMP OFF, THEY WILL HAVE TO REPEAT PROCEDURE
--- NOTE | 2017-06-09 16:43 | NUR ---
PT LEFT WITH IR STAFF FOR PROCEDURE, WAS HERE FOR VISITATION AND SIGNED CONSENT
--- NOTE | 2017-06-09 18:12 | NUR ---
PT RETURNED FROM IR APPROX 1730, RIGHT GROIN SHEATH AND CATHETER IN PLACE INFUSING VASOPRESSIN 0.2UNIT/HR, NS 25ML/HR, PT ALERT AND ORIENTED WITH NO CONFUSION NOTED, NO SIGNS OF BLEEDING OR HEMATOMA, PT BP SYSTOLIC 180S, SCHEDULED COREG GIVEN, DR DEL ROSARIO HERE FOR ROUNDS AND MADE AWARE, ALL OVER VSS, DENIES PAIN AND ALL NEEDS, WILL CONTIUE TO MONITOR
--- NOTE | 2017-06-09 19:00 | NUR ---
REPORT RECEIVED AND ASSESSMENT COMPLETED. SEE FLOWSHEET FOR FULL DETAILS. PT B/P ELEVATED. WILL ADMINISTER PRN MEDICATIONS. PT HAD SHEATH REPLACED TODAY, AND IS LETHARGIC AND CONFUSED AT THIS TIME. SEE FLOWSHEET FOR FULL DETAILS.
[2017-06-09 19:56] LABS: BASOPHILS 0.1 % (0-2); EOSINOPHILS 0 % (0-7)
[2017-06-09 20:29] LABS: HEMOGLOBIN 8.8 g/dL (13.5-17.5); LYMPHOCYTES 9.5 % (15-50); MCH 28.1 pg (26.0-34.0); MCHC 32.6 g/dL (31.0-37.0); MCV 86.3 fL (80.0-100.0); MEAN PLATELET VOLUME 10.4 fL (7.4-10.4); MONOCYTES 4.9 % (2-11); NEUTROPHILS 84.5 % (40-80); PLATELET COUNT 156 10x3/uL (130-400); RBC 3.13 10x6/uL (4.20-6.10); RDW 16.1 % (11.5-14.5); WBC 15.3 10x3/uL (4.8-10.8)
--- NOTE | 2017-06-09 21:00 | NUR ---
2100 MEDS GIVEN. FSBS 139. NO INSULIN REQUIRED AT THIS TIME. WILL MONITOR
--- NOTE | 2017-06-09 23:00 | NUR ---
REASSESSMENT COMPLETED. SEE FLOWSHEET FOR FULL DETAILS. WILL MONITOR
[2017-06-10] VITALS (24 sets, daily range): BP systolic 153–188; BP diastolic 79–100
--- NOTE | 2017-06-10 01:00 | NUR ---
PERIPHERAL PULSE CHECK COMPLETED. NO CHANGES IN STATUS AT THIS TIME. WILL MONITOR
--- NOTE | 2017-06-10 03:00 | NUR ---
REASSESSMENT COMPLETED. SEE FLOWSHEET FOR FULL DETAILS. NO OTHER CHANGES IN STATUS AT THIS TIME. WILL CONTINUE TO MONITOR
[2017-06-10 04:15] LABS: BASOPHILS 0.1 % (0-2); EOSINOPHILS 0 % (0-7); HEMATOCRIT 24.2 % (42.0-54.0); HEMOGLOBIN 7.9 g/dL (13.5-17.5); IMMATURE GRANULOCYTES 1.5 % (0-5); LYMPHOCYTES 9.7 % (15-50); MCHC 32.6 g/dL (31.0-37.0); MCV 85.8 fL (80.0-100.0); MONOCYTES 4.8 % (2-11); NEUTROPHILS 83.9 % (40-80); PLATELET COUNT 160 10x3/uL (130-400); RBC 2.82 10x6/uL (4.20-6.10); WBC 17.2 10x3/uL (4.8-10.8)
[2017-06-10 04:22] LABS: INR 1.31 (0.85-1.17); PROTIME 15.8 SECONDS (11.6-15.0)
[2017-06-10 04:24] LABS: ANION GAP 20.9 mmol/L (8-16); CALCIUM 8.2 mg/dL (8.5-10.1); CARBON DIOXIDE 15.9 mmol/L (21.0-32.0); CREATININE - SERUM 3.8 mg/dL (0.6-1.3); PHOSPHOROUS 5.8 mg/dL (2.5-4.9); POTASSIUM - SERUM 3.8 mmol/L (3.5-5.1); VANCOMYCIN - RANDOM 15.3 ug/mL (10.0-20.0)
--- NOTE | 2017-06-10 05:00 | NUR ---
PT FAMILY IN ROOM. UPDATED ON CONDITION. VSS. WILL CONTINUE TO MONITOR.
--- NOTE | 2017-06-10 07:15 | NUR ---
PT ALERT AND OREINTED WITH SOME CONFUSION TO SITUATION, VSS, O2 2L NC, L CHEST PORT DRESSING CDI, PIV LFA CDI WITH NS INFUSING, SHEATH TO RIGHT GROIN CDI NO SIGNS OF BLEEDING OR HEMATOMA, VASOPRESSIN AND NS INFUSING, ABARCA DRAINING CLEAR YELLOW URINE, SMEAR OF DARK BM ON PAD, PAD CHANGED, PT DENIES ANY PAIN, WILL CONTIUE TO MONITOR
--- NOTE | 2017-06-10 09:00 | NUR ---
PT TOOK AM MEDS WITHOUT DIFFICULTY, DENIES PAIN, SEEN BY IR, RIGHT GROIN CDI, NO SIGNS OF HEMATOMA OR BLEEDING,
--- NOTE | 2017-06-10 10:12 | NUR ---
PRN CATAPRES GIVEN FOR SYSTOLIC BP 180, BP CURRENTLY 177/87
[2017-06-10 11:04] LABS: HEMATOCRIT 24.3 % (42.0-54.0); HEMOGLOBIN 7.9 g/dL (13.5-17.5); MCHC 32.5 g/dL (31.0-37.0); MCV 86.2 fL (80.0-100.0); MEAN PLATELET VOLUME 10.4 fL (7.4-10.4); PLATELET COUNT 184 10x3/uL (130-400); RBC 2.82 10x6/uL (4.20-6.10); WBC 18.4 10x3/uL (4.8-10.8)
--- NOTE | 2017-06-10 11:11 | NUR ---
BP 172/87, DR DEL ROSARIO HERE AND AWARE OF ELLEVATED BP, VSS, DENIES PAIN, NO SIGNS OF BLEEDING OR HEMATOMA, WILL CONTINUIE TO MONITOR
[2017-06-10 12:01] LABS: LYMPHOCYTES 7 % (15-50); MONOCYTES 9 % (2-11); NEUTROPHILS 76 % (40-80); PLATELET ESTIMATE NORMAL
--- NOTE | 2017-06-10 13:22 | NUR ---
BP CONTIUES IN 170S, VSS, DENIES PAIN AND ALL NEEDS, R GROIN CDI, NO SIGNS OF BLEEDING OR HEMATOMA, VASOPRESSIN INCREASED TO 0.2 AFTER DISCUSSING WITH IR NURSE ANNEMARIE, WILL CO NT I UE TO MONITOR
--- NOTE | 2017-06-10 15:12 | NUR ---
PT DENIES ALL PAIN, VSS, VASOPRESSIN INFUSING WITHOUT DIFFICULTY, NO ADVERSE REACTIONS NOTED
[2017-06-10 16:48] LABS: HEMATOCRIT 26.1 % (42.0-54.0); HEMOGLOBIN 8.7 g/dL (13.5-17.5); MCH 28.5 pg (26.0-34.0); MCHC 33.3 g/dL (31.0-37.0); MCV 85.6 fL (80.0-100.0); MEAN PLATELET VOLUME 10.1 fL (7.4-10.4); PLATELET COUNT 203 10x3/uL (130-400); RBC 3.05 10x6/uL (4.20-6.10); RDW 16.2 % (11.5-14.5); WBC 21.3 10x3/uL (4.8-10.8)
--- NOTE | 2017-06-10 17:00 | NUR ---
PT DENIES ALL PAIN, CALL LIGHT WITHIN REACH, R GROIN CDI NO SIGNS OF HEMATOMA OR BLEEDING, WILL CONTINUE TO MONITOR
[2017-06-10 17:45] LABS: LYMPHOCYTES 18 % (15-50); NEUTROPHILS 82 % (40-80); PLATELET ESTIMATE NORMAL
--- NOTE | 2017-06-10 19:00 | NUR ---
REPORT RECEIVED AND ASSESSMENT COMPLETED. SEE FLOWSHEET FOR FULL DETAILS. WILL MONITOR PT THROUGHOUT SHIFT.
--- NOTE | 2017-06-10 21:00 | NUR ---
2100 MEDS GIVEN. PT PRODUCED LARGE DARK STOOL. SOME PINK NOTED IN BM, AND ON SHEETS. DR LIN PRESENT, NEW ORDERS RECEIVED.
[2017-06-10 22:46] LABS: HEMATOCRIT 24.6 % (42.0-54.0); HEMOGLOBIN 8.2 g/dL (13.5-17.5); MCH 28.6 pg (26.0-34.0); MCHC 33.3 g/dL (31.0-37.0); MCV 85.7 fL (80.0-100.0); MEAN PLATELET VOLUME 9.9 fL (7.4-10.4); PLATELET COUNT 203 10x3/uL (130-400); RBC 2.87 10x6/uL (4.20-6.10); RDW 15.9 % (11.5-14.5); WBC 20.2 10x3/uL (4.8-10.8)
[2017-06-10 22:54] LABS: EOSINOPHILS 3 % (0-7); LYMPHOCYTES 12 % (15-50); MONOCYTES 5 % (2-11); NEUTROPHILS 80 % (40-80); PLATELET ESTIMATE NORMAL
--- NOTE | 2017-06-10 23:00 | NUR ---
REASSESSMENT COMPLETED. SEE FLOWSHEET FOR FULL DETAILS. FFP FINISHED TRANSFUSING AT 2245. NO SIGN OF REACTION AT THIS TIME. WILL MONITOR
[2017-06-11] VITALS (24 sets, daily range): BP systolic 99–187; BP diastolic 48–99
--- NOTE | 2017-06-11 00:58 | NUR ---
NO CHANGES IN STATUS AT THIS TIME. VSS. WILL CONTINUE TO MONITOR
--- NOTE | 2017-06-11 03:00 | NUR ---
REASSESSMENT COMPLETED. SEE FLOWSHEET FOR FULL DETAILS.
--- NOTE | 2017-06-11 04:55 | NUR ---
PT REMAINS ON SET RATE VASOPRESSIN FOR GI BLEED. REPLACED DRIP
[2017-06-11 05:15] LABS: HEMATOCRIT 23.2 % (42.0-54.0); HEMOGLOBIN 7.8 g/dL (13.5-17.5); LYMPHOCYTES 4.8 % (15-50); MCH 28.8 pg (26.0-34.0); MCHC 33.6 g/dL (31.0-37.0); MCV 85.6 fL (80.0-100.0); MEAN PLATELET VOLUME 9.2 fL (7.4-10.4); PLATELET COUNT 195 10x3/uL (130-400); RBC 2.71 10x6/uL (4.20-6.10); RDW 16.9 % (11.5-14.5); WBC 18.1 10x3/uL (4.8-10.8)
[2017-06-11 05:19] LABS: CALCIUM 8.6 mg/dL (8.5-10.1); CREATININE - SERUM 3.2 mg/dL (0.6-1.3); VANCOMYCIN - RANDOM 17.8 ug/mL (10.0-20.0)
[2017-06-11 05:22] LABS: ANION GAP 13.9 mmol/L (8-16); CARBON DIOXIDE 22.3 mmol/L (21.0-32.0); PHOSPHOROUS 4.3 mg/dL (2.5-4.9); POTASSIUM - SERUM 3.2 mmol/L (3.5-5.1)
[2017-06-11 05:24] LABS: APTT 32.3 SECONDS (22.8-39.4)
[2017-06-11 05:54] LABS: INR 1.3 (0.85-1.17); PROTIME 15.7 SECONDS (11.6-15.0)
--- NOTE | 2017-06-11 07:00 | NUR ---
REPORT RECIEVED FROM OFF GOING RN. SEE ASSESSMENT IN FLOW SHEET. BILATERAL LUNGS CRACKLES NOTED TO ASCULTATION. PT SOB. ON O2 AT 2L VIA NC. HOB RAISED. O2 SAT 92% LARGE MAROON COLOR TARRY STOOL NOTED. PT CLEANED AND NEW LINES AND GOWN TO PT. CLEAR LIQUID DIET PROVIED AND PT DRANK A LITTLE BIT OF APPLE JUICE AND WENT BACK TO SLEEP. RIGHT GROIN SHEETH PATENT WITH VASOPRESSIN RUNNING AT 0.2 UNITS/MIN. PT NOT VERY TALKATIVE AT THIS TIME BUT ABLE TO VOICE NEEDS. CALL LIGHT IN REACH. WILL CONT POC
--- NOTE | 2017-06-11 10:03 | NUR ---
Nutrition follow-up: Pt continues with clear liquids due to GI bleed Labs reviewed +BM Wt: 180# Recommend starting PPN ProcalAmine due to pt clear liquids x [address] days. RDN following.
--- NOTE | 2017-06-11 13:15 | NUR ---
DR YADAV AT BED SIDE. POSSIBLE SURGERY ON FRIDAY.
[2017-06-11 14:04] LABS: HEMATOCRIT 24.7 % (42.0-54.0); MCH 28.2 pg (26.0-34.0); MCHC 32.4 g/dL (31.0-37.0); MEAN PLATELET VOLUME 9.8 fL (7.4-10.4); PLATELET COUNT 204 10x3/uL (130-400); RBC 2.84 10x6/uL (4.20-6.10); RDW 16.5 % (11.5-14.5)
[2017-06-11 14:20] LABS: LYMPHOCYTES 7 % (15-50); MONOCYTES 8 % (2-11); NEUTROPHILS 76 % (40-80); PLATELET ESTIMATE NORMAL; ROULEAUX OCC
--- NOTE | 2017-06-11 14:29 | NUR ---
DR MERRITT AT BEDSIDE. HAS BEEN AWARE OF HTN. NEW ORDRES FOR APRESOLINE.
--- NOTE | 2017-06-11 14:58 | NUR ---
SMALL TARRY MAROON COLORED BM NOTED. PT CLEANED AND NEW BED LINEN TO BED.
--- NOTE | 2017-06-11 18:33 | NUR ---
PT SITTING UP NATARAJAN EATING HIS JELLO.
--- NOTE | 2017-06-11 18:59 | NUR ---
PT HAD LARGE MAROON TARRY STOOL. PT CLEANED AND NEW BED LINES TO BED. REPORT GIVEN TO OFF GOING RN. DHILLON.
--- NOTE | 2017-06-11 19:51 | NUR ---
REPORT RECIEVED. ASSESSMENT COMPLETE PER FLOW SHEET. VSS. NO NEW CHANGES. WILLCONTINUE TO MONITOR
--- NOTE | 2017-06-11 19:53 | NUR ---
PRN APRESONLINE ADM FOR SBP 195
[2017-06-11 20:31] LABS: HEMATOCRIT 23.6 % (42.0-54.0); HEMOGLOBIN 7.7 g/dL (13.5-17.5); MCH 27.9 pg (26.0-34.0); MCHC 32.6 g/dL (31.0-37.0); MCV 85.5 fL (80.0-100.0); MEAN PLATELET VOLUME 10.4 fL (7.4-10.4); PLATELET COUNT 221 10x3/uL (130-400); RBC 2.76 10x6/uL (4.20-6.10); RDW 16.5 % (11.5-14.5); WBC 19.7 10x3/uL (4.8-10.8)
[2017-06-11 21:01] LABS: EOSINOPHILS 3 % (0-7); LYMPHOCYTES 7 % (15-50); MONOCYTES 2 % (2-11); NEUTROPHILS 88 % (40-80); PLATELET ESTIMATE NORMAL
--- NOTE | 2017-06-11 21:40 | NUR ---
PT BED ALARMING PT OOB ON BEDSIDE COMMODE. PT BEING NON COMPLIANT LARGE BM NOTED ASSISTED BACK TO BED WITH DIFFICULTY. R GROIN SHEATH INTACT DRSG CDI. VSS WILL CONTINUE TO MONITOR
--- NOTE | 2017-06-11 23:00 | NUR ---
REASSESSMENT COMPLETE PER FLOW SHEET. VSS. NO NEW CHANGES. PT SLEEPING COMFORTABLY. WILL CONTINUE TO MONITOR
[2017-06-12] VITALS (24 sets, daily range): BP systolic 103–187; BP diastolic 53–99
--- NOTE | 2017-06-12 00:06 | NUR ---
DR VARMA PAGED. GIVEN UPDATE. T ORDER FOR VASOPRESSIN TO BE TURNED OFF IF SBP >190. WILL CONTINUE TO MONITOR
--- NOTE | 2017-06-12 03:32 | NUR ---
REASSESSMENT COMPLETE PER FLOW SHEET. VSS. NO NEW CHANGES WILL CONTINUE TO MONITOR
[2017-06-12 04:00] LABS: HEMATOCRIT 23.9 % (42.0-54.0); HEMOGLOBIN 7.9 g/dL (13.5-17.5); LYMPHOCYTES 7.1 % (15-50); MCH 28.6 pg (26.0-34.0); MCHC 33.1 g/dL (31.0-37.0); MCV 86.6 fL (80.0-100.0); MEAN PLATELET VOLUME 9.6 fL (7.4-10.4); NEUTROPHILS 84.5 % (40-80); PLATELET COUNT 231 10x3/uL (130-400); RBC 2.76 10x6/uL (4.20-6.10); RDW 17.7 % (11.5-14.5); WBC 21.9 10x3/uL (4.8-10.8)
[2017-06-12 04:02] LABS: APTT 32.8 SECONDS (22.8-39.4); INR 1.32 (0.85-1.17); PROTIME 15.9 SECONDS (11.6-15.0)
[2017-06-12 04:09] LABS: ANION GAP 14.3 mmol/L (8-16); CALCIUM 8.6 mg/dL (8.5-10.1); CARBON DIOXIDE 20.5 mmol/L (21.0-32.0); PHOSPHOROUS 3.6 mg/dL (2.5-4.9); VANCOMYCIN - RANDOM 14.7 ug/mL (10.0-20.0)
[2017-06-12 04:10] LABS: POTASSIUM - SERUM 2.8 mmol/L (3.5-5.1)
--- NOTE | 2017-06-12 05:42 | NUR ---
COMPLETE BB LINEN CHANGE ADM. LABS REVIEWED. AVANI PAGED K OF 2.8 WILL CONTINUE TO MONITOR
--- NOTE | 2017-06-12 07:00 | NUR ---
REPORT RECIEVED FROM OFF GOING RN. ASSESSMENT IN FLOW SHEET. PT ALERT AND ORIENTED BUT VERY PASSIVE. WOULD NOT SPEAK TO ME DURING ASSESSMENT, BUT ANSWERED WHENEVER TRYING TO GIVE MEDICATION AND HE TRIED TO REFUSE. MEDICATION GIVEN. CALL LIGHT IN REACH. WILL CONT POC
--- NOTE | 2017-06-12 07:26 | NUR ---
SPOKE WITH DR GASPAR. OK TO STOP VASOPRESSIN IF OK WITH IR.
--- NOTE | 2017-06-12 10:04 | NUR ---
Nutrition follow-up: Pt continues with clear liquids Scheduled for exploratory lap tomorrow Labs reviewed Wt: 179# -> pt continues to lose wt Pt not meeting est nutritional needs; nutrition support needs to be considered. RDN following.
--- NOTE | 2017-06-12 10:39 | NUR ---
BP 172/84. NO S/SX OF DISTRESS/DISCOMFORT NOTED. PT RESTING WITH EYES CLOSED WITH NORMAL UNLABORED RESPIRATIONS. HYDRALAZINE GIVEN PER ORDRES.
--- NOTE | 2017-06-12 11:30 | NUR ---
IR STAFF AT BED SIDE. REMOVED SHEET FROM RIGHT GROIN. PRESSURE HELD AND DRY DRESSING APPLIED. C/D/I. NO BLEEDING NOTED. INSTRUCTED PT TO NOT MOVE LEG AND TO KEEP STRIAGHT FOR 6 HOURS
--- NOTE | 2017-06-12 12:32 | NUR ---
IR NURSE AT BED SIDE. OK FOR REGULAR DIABETIC/RENAL DIET.
--- NOTE | 2017-06-12 12:34 | NUR ---
FAMILY AT BEDSIDE. LEG REMAINS STRAIGHT. DRSSING TO GROIN C/D/I.
--- NOTE | 2017-06-12 13:35 | NUR ---
AT BEDSIDE FEEDING PT MASHED POTATOES FROM POPYES.
--- NOTE | 2017-06-12 14:25 | NUR ---
RENÉ PAGED DUE TO K LVL 3.1. NEW ORDRES FOR 20MEQ K RIDER X2 FOR TOTAL OF 40MEQ.
--- NOTE | 2017-06-12 14:36 | NUR ---
RIGHT GROIN DRESSING C/D/I. NO S/SX OF BLEEDING NOTED.
--- NOTE | 2017-06-12 17:00 | NUR ---
PT FOOD GIVEN. HE WILL TAKE A BITE OCCASIONALLY AND NAP. VSS. BREATHING NORMAL AND UNLABORED. DRESSING TO RIGHT GROIN C/D/I.
--- NOTE | 2017-06-12 19:22 | NUR ---
REPORT RECEIVED. ASSESSMENT COMPLETE PER FLOW SHEET. DENIES PAIN OR NEEDS. SLEEPING COMFORTABLY. WILL CONTINUE TO MONITOR
--- NOTE | 2017-06-12 21:00 | NUR ---
PT REFUSES 2100 MEDS MULTIPLE TIMES. WILL REASSESS
--- NOTE | 2017-06-12 23:13 | NUR ---
PT SLEEPING COMFORTABLY. VSS NO NEW CHANGES WILL CONTINUE TO MONITOR
[2017-06-13] VITALS (21 sets, daily range): BP systolic 129–201; BP diastolic 74–104
[2017-06-13 05:06] LABS: BASOPHILS 0.1 % (0-2); EOSINOPHILS 0 % (0-7); HEMATOCRIT 27.9 % (42.0-54.0); HEMOGLOBIN 9.1 g/dL (13.5-17.5); IMMATURE GRANULOCYTES 7.2 % (0-5); LYMPHOCYTES 9.8 % (15-50); MCH 28.6 pg (26.0-34.0); MCHC 32.6 g/dL (31.0-37.0); MCV 87.7 fL (80.0-100.0); MEAN PLATELET VOLUME 10.4 fL (7.4-10.4); MONOCYTES 5.3 % (2-11); NEUTROPHILS 77.6 % (40-80); PLATELET COUNT 318 10x3/uL (130-400); RBC 3.18 10x6/uL (4.20-6.10); WBC 24.9 10x3/uL (4.8-10.8)
[2017-06-13 05:21] LABS: ANION GAP 14.8 mmol/L (8-16); CALCIUM 8.9 mg/dL (8.5-10.1); CARBON DIOXIDE 18.4 mmol/L (21.0-32.0); CREATININE - SERUM 3.1 mg/dL (0.6-1.3); PHOSPHOROUS 3.2 mg/dL (2.5-4.9); POTASSIUM - SERUM 3.2 mmol/L (3.5-5.1); VANCOMYCIN - RANDOM 12.9 ug/mL (10.0-20.0)
--- NOTE | 2017-06-13 07:15 | NUR ---
PT STOOL NEG FOR OCCULT BLOOD, DR GASPAR NOTIFIED WHOSAID TO NOTIFY DR GOMEZ WHO WAS NOTIFIED. PT ALERT VSS, DENIES PAIN, L CHEST PORT INFUSING, DRESSING CDI, R GROIN DRESSING CDI, ABLE TO REPOSITION SELF, BP ELEVATED IN 170S, PT AGREED TO TAKE AM MEDS AFTER REFUSING ALL PM MEDS LAST NIGHT
--- NOTE | 2017-06-13 09:28 | NUR ---
PT TOOK AM MEDS WITH SIP OF WATER AFTER MUCH ENCOURAGEMENT FROM STAFF AND , DENIES ALL NEEDS, ABLE TO REPOSITION SELF, WILL CONITNUE TO MONIOR
--- NOTE | 2017-06-13 11:09 | NUR ---
PT ABLE TO REPOSITION SELF, VSS, DENIES PAIN, CALL LIGHT AND FLUIDS WITHIN REACH
--- NOTE | 2017-06-13 13:13 | NUR ---
PT OUT TO SURGERY AT THIS TIME
--- NOTE | 2017-06-13 18:13 | NUR ---
PT RETURNED TO ICU, ALERT, LETHARGIC, VSS, OXYMISER 10L NGT LIS, ABD DRESSING CDI, INCISION X3 WITH BANDAIDS CDI, IN ROOM TO SEE PT, DENIES PAIN, CALL LIGHT EDGARDO REACH, WILL CONTINUE TO MONITOR
--- NOTE | 2017-06-13 23:04 | NUR ---
PATIENT IS SLEEPING WITH SNORING RESPIRATIONS, NO CHANGES IN CONDITION AT THIS TIME. CALL LIGHT WITHIN REACH, BED IN LOW POSITION.
[2017-06-14] VITALS (24 sets, daily range): BP systolic 108–196; BP diastolic 85–109
--- NOTE | 2017-06-14 01:40 | NUR ---
TUBE PLACEMENT CHECKED WITH AIR BOLUS AUSC WITH GURGLING SOUND NOTED IN EPIGASTRIC AREA. CALL LIGHT WITHIN REACH, BED IN LOW POSITION.
--- NOTE | 2017-06-14 05:05 | NUR ---
PATIENT PULLED NGT THROUGH HIS MOUTH AND FOUND WHEN ENTERED PT ROOM. NGT PULLED BACK THROUGH NARE. PATIENT REFUSES FOR NGT TO BE REPLACED. EDUCATED PATIENT ON REASON HE NEEDS NGT AND HE STILL DECLINES. PATIENT IS AWARE OF HIS SURROUNDING, THAT HE IS IN THE HOSPITAL, MONTH, AND YEAR.
--- NOTE | 2017-06-14 07:15 | NUR ---
REPORT FROM OUTGOINIG RN - WILL F/U ON NG TUBE WITH DR. GOMEZ -
--- NOTE | 2017-06-14 07:50 | NUR ---
PT RESTING SUPINE IN BED WATCHING TELEVISION - DENIES DISTRESS OR PAIN - ASSESSMENT COMPLETE - CPOC
[2017-06-14 08:32] LABS: BASOPHILS 0.1 % (0-2); EOSINOPHILS 0 % (0-7); HEMATOCRIT 28.6 % (42.0-54.0); HEMOGLOBIN 9.1 g/dL (13.5-17.5); LYMPHOCYTES 6.5 % (15-50); MCH 28.5 pg (26.0-34.0); MCHC 31.8 g/dL (31.0-37.0); MCV 89.7 fL (80.0-100.0); MEAN PLATELET VOLUME 9.8 fL (7.4-10.4); MONOCYTES 4.8 % (2-11); NEUTROPHILS 86.6 % (40-80); PLATELET COUNT 318 10x3/uL (130-400); RBC 3.19 10x6/uL (4.20-6.10); RDW 17.7 % (11.5-14.5); WBC 26.9 10x3/uL (4.8-10.8)
[2017-06-14 08:42] LABS: ANION GAP 13.5 mmol/L (8-16); CALCIUM 7.9 mg/dL (8.5-10.1); CARBON DIOXIDE 19.7 mmol/L (21.0-32.0); CREATININE - SERUM 3.4 mg/dL (0.6-1.3); PHOSPHOROUS 4.3 mg/dL (2.5-4.9); POTASSIUM - SERUM 3.2 mmol/L (3.5-5.1)
--- NOTE | 2017-06-14 08:45 | NUR ---
CALLED CASH, PHARMACIST, TO REQUEST PO MEDICATIONS TO BE CHANGED TO I.V. MEDICATAION IS POSSIBLE. PHARMACIST AGREED TO PLAN OF CARE. - INFORMED BOTH DR. GOMEZ AND JOCELYNN OCAMPO APRN OF HOLDING P.O. MEDICATIONS. CPOC
--- NOTE | 2017-06-14 09:00 | NUR ---
DR. GOMEZ AT BEDSIDE - MD AWARE OF PT PULLING OUT NG TUBE AND PT REFUSING REPLACEMENNT - SPOUSE AT BEDSIDE VISITATION - SPOUSE AND PATIENT AGREED TO REPLACE NG TUBE - PT'S SP ABOVE 190 - WILL GIVE HYDRALIZE PER ORDER -
--- NOTE | 2017-06-14 09:40 | NUR ---
ATTEMPTED TO REPLACE NG TUBE TO LEFT NARE BUT WAS NOT SUCCESSFUL - ATTEMPTED TO PLACE IN RIGHT NARE BUT PT DID NOT TOLERATE PROCEDURE - PT REFUSED TO CONTINUE - SPOUSE ENCOURAGED PT TO ALLOW NG TUBE PLACEMENT - PT CONTINUED TO REFUSE NG TUBE - AWARE - CPOC
--- NOTE | 2017-06-14 11:00 | NUR ---
ASSESSMENT COMPLETE - DR. GAGNON AT BEDSIDE FOR ASSESSMENT - ORDERED PROTONIX IV AT 10ML/HOUR - ANSWERED ALL QUESTIONS FOR PT CPOC
--- NOTE | 2017-06-14 12:00 | NUR ---
FAMILY AT BEDSIDE DISCUSSED PT ALLOWING RN TO REPLACE NG TUBE TO ASSIST IN HEALING. - PT CONTINUES TO REFUSE TO REPLACE NG TUBE - MDs ARE AWARE
--- NOTE | 2017-06-14 12:30 | NUR ---
BLOOD SUGAR 140 - DID NOT GIVE ANY INSULIN - SEE MAR
--- NOTE | 2017-06-14 13:00 | NUR ---
BEDSIDE CHEST X-RAY COMPLETED - AWAITING RESULTS - CPOC
--- NOTE | 2017-06-14 15:00 | NUR ---
ASSESSMENT COMPLETE - PT CONTINUES TO REFUSE NG TUBE PLACEMENT - CPOC
--- NOTE | 2017-06-14 18:45 | NUR ---
DAUGHTER AT BEDSIDE - PT AGREED TO PLACE NG TUBE SO HE CAN HAVE ICE CHIPS - WILL REPORT TO ONCOMING RN FOR PLAN OF CARE -
--- NOTE | 2017-06-14 19:35 | NUR ---
SHIFT ASSESSMENT COMPLETE. ATTEMPTED TO PLACE NGT X3 AND WAS UNSUCCESSFUL. PATIENT HAD SOME BLEEDING FROM NARES NOTED. PROCEDURE WAS VERY PAINFUL FOR PATIENT AND HE DECLINED TRYING AGAIN AT THIS TIME.
--- NOTE | 2017-06-14 23:01 | NUR ---
HYDRALAZINE GIVEN 10MG IV FOR SBP ABOVE 180.
[2017-06-15] VITALS (24 sets, daily range): BP systolic 168–197; BP diastolic 80–109
--- NOTE | 2017-06-15 02:18 | NUR ---
HYDRALAZINE DID NOT AFFECT BP AT ALL DECISION MADE TO GIVE LABETALOL 10MG IVP.
--- NOTE | 2017-06-15 04:32 | NUR ---
BLOOD GLUCOSE DONE AND RESULTED IN ERROR OF 557, BLOOD GLUCOSE RECHECKED WITH RESULT OF 83. GLUCOSE MONITOR HAD TO HAVE QC COMPLETED AND BLOOD HAD REMAINED IN TUBING TO LONG.
[2017-06-15 05:32] LABS: ALBUMIN 1.4 g/dL (3.4-5.0); BILIRUBIN - TOTAL 0.2 mg/dL (0.2-1.3); CALCIUM 7.6 mg/dL (8.5-10.1); CARBON DIOXIDE 17.2 mmol/L (21.0-32.0); CREATININE - SERUM 3.1 mg/dL (0.6-1.3); POTASSIUM - SERUM 3.2 mmol/L (3.5-5.1); PROTEIN - SERUM 5.1 g/dL (6.4-8.2); VANCOMYCIN - RANDOM 15.9 ug/mL (10.0-20.0)
--- NOTE | 2017-06-15 06:22 | NUR ---
HYDRALAZINE 10MG GIVEN FOR SBP REMAINING IN 180'S.
--- NOTE | 2017-06-15 07:13 | NUR ---
LYING IN BED AWAKE AT THIS TIME. NO ACUTE DISTRESS NOTED. PT ALERT AND ORIENTED. ABLE TO STATE NEEDS. WILL CONTINUE PLAN OF CARE.
--- NOTE | 2017-06-15 08:12 | NUR ---
RANDOM LEVEL WAS 15.9 ROUGHLY 36 HOURS POST DOSE. WILL ORDER A 1 GRAM DOSE TODAY. FOLLOWING UP WITH RANDOMS FOR THE NEXT TWO DAYS TO SEE HOW WELL IT GETS CLEARED. LAST DOSE DUE 06/18
--- NOTE | 2017-06-15 09:11 | NUR ---
IN BED AWAKE AT THIS TIME, FAMILY IN ROOM WITH PT PROVIDING BED BATH. NO ACUTE DISTRESS NOTED. WILL CONTINUE PLAN OF CARE.
--- NOTE | 2017-06-15 09:54 | NUR ---
DR GOMEZ PAGED REGARDING DR GAGNON REQUEST TO REVERIFY WITH PHYSICIAN FOR NGT PLACEMENT AFTER MULTIPLE TRIES SINCE PT HAD PULLED A FEW DAYS AGO. ALSO NOTIFIED THAT PT HAS HYPOACTIVE BOWEL SOUNDS, PASSING GAS, AND HAS SOFT ABDOMEN TO PALPATATION. ORDER RECIEVED TO HOLD NGT PLACEMENT AND HE WILL ORDER A KUB LATER.
--- NOTE | 2017-06-15 11:56 | NUR ---
UP IN BED VISITING WITH FAMILY AT THIS TIME. NO ACUTE DISTRESS NOTED. DENIES ANY NEEDS. WILL CONTINUE PLAN OF CARE.
--- NOTE | 2017-06-15 13:57 | NUR ---
UP IN BED AWAKE AT THIS TIME. DENIES ANY NEEDS. NO ACUTE DISTRESS NOTED. PT ABLE TO STATE NEEDS. WILL CONTINUE PLAN OF CARE.
--- NOTE | 2017-06-15 15:32 | NUR ---
UP IN BED AWAKE AT THIS TIME. NO ACUTE DISTRESS NOTED. WILL CONTINUE PLAN OF CARE.
--- NOTE | 2017-06-15 17:31 | NUR ---
UP IN BED AWAKE AT THIS TIME VISITING WITH FAMILY AT THIS TIME. NO ACUTE DISTRESS NOTED. DENIES ANY NEEDS. WILL CONTINUE PLAN OF CARE.
--- NOTE | 2017-06-15 19:00 | NUR ---
Received patient resting in bed with eyes open watching TV, assessment completed per flowsheet. Patient AO x4, slightly agitated over NPO status. Eyes PERRLA @ 4mm with brisk response, sclera is clear and slight reddened. S1/S2 noted NSR with ST depression and HR 91 on telemetry, rythmic and regular. Breathing is shallow on 3L via NC with O2 sat 94%, lung sounds clear bilateral upper and mid with diminished lower. Abdomen is soft and non-tender with bowel sounds hypoactive x4. Midline incision dressing CDI, Lap sites x3 with no bleeding/drainage noted. Orta secured in place, clear yellow urine noted. All pulses palpable with cap refill < 3 sec, skin warm/dry with weakness noted all. L upper chest port dressing CDI, patent with fluids infusing. Repositioned for comfort, denies pain or other needs at this time. All VSS and will continue to monitor.
--- NOTE | 2017-06-15 21:00 | NUR ---
No visitors at this time, HS PO meds meds held for NPO status. Patient denies pain or other needs at this time, all VSS and will continue to monitor.
--- NOTE | 2017-06-15 22:20 | NUR ---
Dr Landa notified of abdominal x-ray results, patient advanced to clear liquid diet per orders. No difficulties noted swallowing, patient denies other needs at this time.
--- NOTE | 2017-06-15 22:30 | NUR ---
PRN Labetalol given for SBP > 180, will copntinue to monitor.
--- NOTE | 2017-06-15 23:00 | NUR ---
Reassessment completed per flowsheet, patient resting in bed with eyes open watching TV. S1/S2 noted NSR with ST depression noted on telemetry and HR 82, rythmic and regular. Breathing is slightly shallow and unlabored on 3L via NC with O2 sat 96%, lung sounds clear bilateral upper and mid with diminished lower. Abdomen is flat and soft with bowel sounds hypoactive x4, non-tender. Midline incision dressing CDI, Lap sites x3 no bleeding/drainage noted. All pulses palpable with cap refill < 3 sec, skin warm/dry with slight weakness noted all. Repositioned for comfort, denies pain or other needs at this time. All VSS and will continue to monitor.
[2017-06-16] VITALS (26 sets, daily range): BP systolic 137–188; BP diastolic 77–121
--- NOTE | 2017-06-16 02:40 | NUR ---
Reassessment completed per flowsheet, patient resting in bed with eyes closed. S1/S2 noted NSR on telemetry with HR 85, rythmic and regular. Breathing is slightly shallow with exertional dyspnea on 3L via NC with O2 sat 97%, lung sounds clear bilateral upper and mid wwith diminished lower. Abdomen is soft and flat, bowel sounds hypoactive x4. Midlin abdominal incision dressing CDI, Lap sites x3 with bandages CDI. All pulses palpable with cap refill < 3 sec, skin warm/dry to touch with weakness noted all. Patient denies pain or other needs at this time, all VSS and will continue to monitor.
--- NOTE | 2017-06-16 04:00 | NUR ---
Patient SBP > 180, PRN Catapres given. Will continue to monitor.
[2017-06-16 04:41] LABS: BASOPHILS 0 % (0-2); EOSINOPHILS 0 % (0-7); HEMATOCRIT 27.4 % (42.0-54.0); HEMOGLOBIN 8.7 g/dL (13.5-17.5); IMMATURE GRANULOCYTES 1.2 % (0-5); LYMPHOCYTES 4.7 % (15-50); MCH 28.6 pg (26.0-34.0); MCHC 31.8 g/dL (31.0-37.0); MCV 90.1 fL (80.0-100.0); MEAN PLATELET VOLUME 9.8 fL (7.4-10.4); MONOCYTES 6.3 % (2-11); NEUTROPHILS 87.8 % (40-80); PLATELET COUNT 295 10x3/uL (130-400); RBC 3.04 10x6/uL (4.20-6.10); RDW 18.5 % (11.5-14.5); WBC 20.6 10x3/uL (4.8-10.8)
[2017-06-16 05:04] LABS: ALBUMIN 1.4 g/dL (3.4-5.0); ANION GAP 18.7 mmol/L (8-16); BILIRUBIN - TOTAL 0.4 mg/dL (0.2-1.3); CALCIUM 7.6 mg/dL (8.5-10.1); CARBON DIOXIDE 15.1 mmol/L (21.0-32.0); CREATININE - SERUM 2.9 mg/dL (0.6-1.3); MAGNESIUM - SERUM 1.7 mg/dL (1.8-2.4); POTASSIUM - SERUM 3.8 mmol/L (3.5-5.1); PROTEIN - SERUM 5.2 g/dL (6.4-8.2)
--- NOTE | 2017-06-16 05:11 | NUR ---
Patient SBP remains greater than 180, PRN Labetalol given. Will continue to monitor.
--- NOTE | 2017-06-16 10:18 | NUR ---
Nutrition follow-up: Diet: Clear liquids Labs reviewed; glucose high; however, pt is on SoluMedorl Wt: 185# Pt will need nutrition support started within 24-48 hours if diet is unable to advance past clear liquids. RDN following.
--- NOTE | 2017-06-16 10:33 | NUR ---
Vancomycin random is 21, not dosing today. Ordered random for 12-19 AM.
--- NOTE | 2017-06-16 11:04 | NUR ---
PT STARTED ON CL DIET THIS AM. ML WELL. DENIES NEEDS.
--- NOTE | 2017-06-16 12:47 | NUR ---
BS 36 YONATHAN AND FSBS 37. 1 AMP D50 GIVEN ORDERED PER DR MERCADO. BP. 180/100, HYDRALIZING GIVEN ORDERED. REPETE FSBS 30 MIN AFTER D50 GIVEN AND BS 124. REPORTED TO DR MERCADO
--- NOTE | 2017-06-16 16:10 | NUR ---
DR VOICE HERE ON ON ROUNDS. PT DENIES C/O.
--- NOTE | 2017-06-16 19:00 | NUR ---
Recveived patient resting in bed with eyes open watching TV, assessment completed per flowsheet. Patient AO x4, calm and cooperative. Eyes PERRLA @ 4mm with brisk response, sclera is clear/white. S1/S2 noted NSR on telemetry with HR 72, rythmic and regular. Breathing is slightly shallow and unlabored on room air with O2 sat 97%, lung sounds clear bilateral upper and mid with diminished lower. Abdomen is soft and flat with bowel sounds active x4, tender. Midline abdomen dressing CDI, no bleeding/drainage. Lap sites x3 with bandage intact, no bleeding/drainage. Patient ambulates to bedside commode w/o assistance, no difficulties reported. Full ROM all extremities with weakness noted, all pulses palpable with cap refill < 3 sec. L upper chest port dressing CDI, patent with fluids infusing. Patient denies pain or other needs at this time, all VSS and will continue to monitor.
--- NOTE | 2017-06-16 21:00 | NUR ---
HS meds given without difficulty, repositioned for comfort. Denies pain or other needs at this time, all VSS and will continue to monitor.
--- NOTE | 2017-06-16 23:00 | NUR ---
Reassessment completed per flowsheet, patient resting in bed with eyes closed. S1/S2 noted NSR on telemetry with HR 80, rythmic and regular. Breathing is slightly shallow and unlabored on room air with O2 sat 97%, lung sounds clear bilateral upper and mid with diminished lower. Abdomen is flat and soft with bowel sounds active x4, tender. Midline abdominal dressing CDI, no bleeding/drainage. Lap sites x3 bandages intact, no bleeding/drainage noted. All pulses palpable with cap refill < 3 sec, skin warm dry with weakness noted all. Denies pain or other needs at this time, all VSS and will continue to monitor.
[2017-06-17] VITALS (16 sets, daily range): BP systolic 154–181; BP diastolic 81–98
--- NOTE | 2017-06-17 02:41 | NUR ---
Reassessment completed per flowsheet, patient resting in bed with eyes closed. S1/S2 noted NSR on telemetry with HR 78, rythmic and regular. Breathing is slightly shallow and unlabored on room air with O2 sat 98%, lung sounds clear bilateral upper and mid with diminished lower. Abdomen is soft and flat with bowel sounds active x4, tender. Midline abdomen dressing CDI, no bleedin/drainage noted. Lap sites x3 bandages intact, no bleeding/drainage noted. All pulses palpable with cap refill < 3 sec, skin warm/dry with weakness noted all. Denies pain or other needs at this time, all VSS and will continue to monitor.
[2017-06-17 04:27] LABS: BASOPHILS 0 % (0-2); EOSINOPHILS 0.1 % (0-7); HEMATOCRIT 27.7 % (42.0-54.0); HEMOGLOBIN 8.9 g/dL (13.5-17.5); IMMATURE GRANULOCYTES 0.6 % (0-5); LYMPHOCYTES 9.9 % (15-50); MCH 28.5 pg (26.0-34.0); MCHC 32.1 g/dL (31.0-37.0); MCV 88.8 fL (80.0-100.0); MEAN PLATELET VOLUME 9.8 fL (7.4-10.4); MONOCYTES 4.8 % (2-11); NEUTROPHILS 84.6 % (40-80); PLATELET COUNT 293 10x3/uL (130-400); RBC 3.12 10x6/uL (4.20-6.10); RDW 17.6 % (11.5-14.5); WBC 19.5 10x3/uL (4.8-10.8)
[2017-06-17 04:45] LABS: ALBUMIN 1.4 g/dL (3.4-5.0); ANION GAP 14.7 mmol/L (8-16); BILIRUBIN - TOTAL 0.4 mg/dL (0.2-1.3); CALCIUM 7.8 mg/dL (8.5-10.1); CREATININE - SERUM 2.8 mg/dL (0.6-1.3); PHOSPHOROUS 3.4 mg/dL (2.5-4.9); POTASSIUM - SERUM 3.7 mmol/L (3.5-5.1); VANCOMYCIN - RANDOM 16.6 ug/mL (10.0-20.0)
--- NOTE | 2017-06-17 05:00 | NUR ---
AM labs resulted, will replace electolytes PRN per protocol. No further needs at this time, all VSS and will comtinue to monitor.
--- NOTE | 2017-06-17 07:54 | NUR ---
Vancomycin random this AM is 16.6. Ordering Vancomycin 500mg IV x1 and ordering random 12-20 AM.
--- NOTE | 2017-06-17 09:36 | NUR ---
ASSISTED PT TO SIDE OF BED AND HE ATE BREAKFAST. AT BS. DR GASPAR HERE THIS AM. VSS. AFEBRILE. PT WITH WEAKNESS WITH SLIGHT ACTIVITY.
--- NOTE | 2017-06-17 14:28 | NUR ---
Nutrition follow-up: Diet advanced to consistent CHO with po intake ~75% average of last 3 meals Labs reviewed Wt: 185# Will provide food choices with selective menus and honor food preferences within diet restrictions. RDN following.
--- NOTE | 2017-06-17 15:39 | OP ---
PATIENT NAME: KERRI BAUTISTA SR MEDICAL RECORD: [id number] :50 LOCATION:[facility] D.2304 ADMISSION DATE:06/05/17 SURGEON: ISIDORO GOMEZ MD DATE OF OPERATION: 06/13/2017 PREOPERATIVE DIAGNOSES: 1. GI bleed. 2. Anemia secondary to GI bleed. 3. End-stage renal disease. 4. Hypertension. 5. History of lung cancer. POSTOPERATIVE DIAGNOSES: 1. GI bleed. 2. Anemia secondary to GI bleed. 3. End-stage renal disease. 4. Hypertension. 5. History of lung cancer. PROCEDURES: 1. Diagnostic laparoscopy. 2. Push enteroscopy. SURGEON: Isidoro Gomez MD REPORT OF PROCEDURE: The patient's abdomen was prepped and draped in sterile fashion. A Veress needle was inserted in the left upper quadrant and the abdomen was insufflated. A 5-mm Visiport trocar was inserted in the left lateral abdomen. I was able to visualize the Veress needle at this point. There was no sign of any injury to bowel or surrounding structures. Another 5-mm trocar was placed in the left upper quadrant and a final 5-mm trocar was placed in the left lower quadrant. We ran the small bowel from the terminal ileum to the ligament of Treitz. The small bowel externally appeared to be normal with no signs of any masses, lesions, or diverticula. The patient's abdominal cavity appeared normal other than the patient having some clear yellow ascitic fluid. The liver appeared normal with no signs of any masses or lesions. I eventually made a small incision in the midline just above the umbilicus and inserted GelPort. I did tactile sensation to the abdominal cavity and again I felt no masses or lesions. I then eviscerated the small bowel through the wound protector of the Gelport and performed a more thorough evaluation of the small bowel. Again, no masses, lesions, diverticula, or ulcerations were visualized. The mesentery was inspected as well and there was no sign of any enlarged lymphadenopathy. At this point, we got a ureteroscope and I made 2 separate openings in the antimesenteric side of the small bowel and was able to pass the ureteroscope through the entire small bowel from the ligament of Treitz to the terminal ileum. No masses, lesions, or ulcerations were visualized inside the small bowel and there were no signs of any sequelae of any recent bleeding. At this point, one of the enterotomies was closed with a 30 blue load TA stapler fired followed by Lemberted 3-0 silks and the other enterotomy, which was a little bit larger, was closed with a 55 blue load MOISES stapler in a [id number] fashion followed by closing of the enterotomy with a 30 blue load TA stapler. The suture lines were oversewn with Lemberted 3-0 silks. At this point, small bowel was placed back into the abdominal cavity. A NG tube was placed and noted to be in good position in the stomach. At this point, the midline fascia was closed with running #1 loop PDS times 2. We OPERATIVE REPORT [id number] KERRI BAUTISTA irrigated out the wound and then infused all of the incisions with a total of 10 mL of 0.25% Marcaine with epinephrine. The subcutaneous tissues were reapproximated with interrupted 3-0 Vicryl and the skin was closed with running subcutaneous 5-0 Monocryl. COMPLICATIONS: None. CONDITION: Stable. ANESTHESIA: General endotracheal and local. BLOOD LOSS: Minimal. TRANSINT:[id number] Voice Confirmation ID: [id number] DOCUMENT ID: [id number] ISIDORO GOMEZ MD at 1539 CC: BOB LIN MD, TRINI ZAMORA MD and AUDREY OMRENO DO [id number] DICTATION DATE: 06/13/17 1706 GAS BRAZER: 06/13/17 1813 ADM IN [facility] [address] [place] [address]
--- NOTE | 2017-06-17 20:00 | NUR ---
ASSESSMENT COMPLETE. S1S2. NSR SHOWING ON MONITOR. AAO. PERRLA. RR SHALLOW DIMINISHED BILATERALLY IN LOWER LOBES. RADIAL AND PEDAL PULSES PALPATED. DENIES PAIN. BOWEL SOUNDS ACTIVE X4. URINAL AT BEDSIDE. CALL LIGHT IN REACH.
--- NOTE | 2017-06-17 21:41 | NUR ---
TRANSFERED PT TO 2135. SPOKE WITH NURSE. BELONGINGS TRANSFERED TO ROOM; GLASSES; CLOTHES; AND CELL PHONE WITH STRAP MAKER.
[2017-06-18] VITALS: BP 167/80
--- NOTE | 2017-06-18 01:00 | NUR ---
PT IN BED RESTING QUIETLY. BREATHING EVEN AND UNLABORED. BED IN LOW POSITION, CALL LIGHT WITHIN REACH. WILL CTM.
[2017-06-18 04:00] VITALS: BP 181/89
[2017-06-18 06:23] LABS: BASOPHILS 0 % (0-2); EOSINOPHILS 0.4 % (0-7); HEMATOCRIT 28.1 % (42.0-54.0); HEMOGLOBIN 9.1 g/dL (13.5-17.5); IMMATURE GRANULOCYTES 0.8 % (0-5); LYMPHOCYTES 10.2 % (15-50); MCH 28.3 pg (26.0-34.0); MCHC 32.4 g/dL (31.0-37.0); MCV 87.5 fL (80.0-100.0); MEAN PLATELET VOLUME 10.2 fL (7.4-10.4); MONOCYTES 5.6 % (2-11); PLATELET COUNT 296 10x3/uL (130-400); RBC 3.21 10x6/uL (4.20-6.10)
[2017-06-18 06:50] LABS: ALBUMIN 1.4 g/dL (3.4-5.0); BILIRUBIN - TOTAL 0.39 mg/dL (0.2-1.3); CALCIUM 8.1 mg/dL (8.5-10.1); CARBON DIOXIDE 17.6 mmol/L (21.0-32.0); CREATININE - SERUM 2.9 mg/dL (0.6-1.3); MAGNESIUM - SERUM 1.5 mg/dL (1.8-2.4); PHOSPHOROUS 3.3 mg/dL (2.5-4.9); POTASSIUM - SERUM 3.6 mmol/L (3.5-5.1); VANCOMYCIN - RANDOM 18.8 ug/mL (10.0-20.0)
--- NOTE | 2017-06-18 07:30 | NUR ---
Vancomycin random is 18.8, not ordering dose today. This completes 10 days of therapy.
--- NOTE | 2017-06-18 07:35 | NUR ---
AM ROUNDS - PT IN BED AND APPEARS TO BE SLEEPING WITH EQUAL AND NON LABORED BREATHING. 3L O2 VIA NC. LEFT CHEST POSRT, D5W AT 40CC/HR. PT ON DROP ISO. BED AT LOWEST POSITION. CALL GUERRA IN USE/REACH. SIDE RAILS UP X2. WILL CONTINUE TO MONTIOR
[2017-06-18 08:00] VITALS: BP 155/76
[2017-06-18 13:16] VITALS: BP 160/73
[2017-06-18 17:32] VITALS: BP 170/82
--- NOTE | 2017-06-18 19:55 | NUR ---
PT IN BED RESTING QUIETLY. BREATHING EVEN AND UNLABORED. BED IN LOW POSITION, CALL LIGHT WITHIN REACH. WILL CTM.
[2017-06-19] VITALS: BP 136/60
--- NOTE | 2017-06-19 02:20 | NUR ---
PT WAS FOUND ON THE FLOOR BESIDE HIS BED IN A LARGE POOL OF RECTAL BLOOD. THE PT STATED HE FELT THE URGE TO DEFECATE AND ATTEMPTED TO GET UP OUT OF BED AND AMBUALTE TO THE BATHROOM. HE THEN SLIPPED AND FELL IN THE BLOOD AND LANDED ON HIS BOTTOM. HE STATED HE DID NOT HIT HIS HEAD. AFTER GETTING PT UP, HE WAS STILL ACTIVELY BLEEDING FROM HIS RECTUM. A LARGE AMOUNT OF DARK RED CLOTS WERE ON THE GROUND BENEATH HIM. HE WAS CLEANED UP, VITALS WERE TAKEN AND STABLE. BP 126/64. FSBS WAS TAKEN, 71. 2L OF OXYGEN WERE PLACED ON THE PT HE WAS OUT OF BREATH FROM THE EXERTION. A STAT H&H WAS ORDERED. WILL CTM.
[2017-06-19 03:10] LABS: INR 1.42 (0.85-1.17); PROTIME 16.9 SECONDS (11.6-15.0)
--- NOTE | 2017-06-19 03:15 | NUR ---
PTS , MAURICIO, WAS CALLED AND INFORMED OF THE INCIDENT.
[2017-06-19 03:22] LABS: ALBUMIN 1.4 g/dL (3.4-5.0); ANION GAP 16.9 mmol/L (8-16); BILIRUBIN - TOTAL 0.3 mg/dL (0.2-1.3); CALCIUM 8.3 mg/dL (8.5-10.1); CARBON DIOXIDE 15.7 mmol/L (21.0-32.0); CREATININE - SERUM 3.3 mg/dL (0.6-1.3); MAGNESIUM - SERUM 1.6 mg/dL (1.8-2.4); PHOSPHOROUS 3.6 mg/dL (2.5-4.9); POTASSIUM - SERUM 4.6 mmol/L (3.5-5.1); PROTEIN - SERUM 4.8 g/dL (6.4-8.2)
--- NOTE | 2017-06-19 03:30 | NUR ---
PAGED THE CERTIFIED INDOOR ENVIRONMENTALIST ART EDITOR, MARTIN, TO INFORM HER OF THE FALL AND CRITICAL HEBOGLOBIN LAB VALUE OF 7.1. AWAITING CALL BACK.
[2017-06-19 03:31] LABS: RBC 2.51 10x6/uL (4.20-6.10); WBC 20.6 10x3/uL (4.8-10.8)
[2017-06-19 03:32] LABS: BASOPHILS 0 % (0-2); EOSINOPHILS 0.1 % (0-7); HEMATOCRIT 22.3 % (42.0-54.0); HEMOGLOBIN 7.1 g/dL (13.5-17.5); IMMATURE GRANULOCYTES 0.7 % (0-5); LYMPHOCYTES 9.2 % (15-50); MCH 28.3 pg (26.0-34.0); MCHC 31.8 g/dL (31.0-37.0); MCV 88.8 fL (80.0-100.0); MEAN PLATELET VOLUME 9.6 fL (7.4-10.4); MONOCYTES 5.7 % (2-11); NEUTROPHILS 84.3 % (40-80); PLATELET COUNT 250 10x3/uL (130-400); RDW 17.1 % (11.5-14.5)
--- NOTE | 2017-06-19 04:00 | NUR ---
PAGED MARTIN AGAIN ABOUT FALL AND CRITICAL LAB VALUES. AWAITING RESPONSE.
--- NOTE | 2017-06-19 05:39 | NUR ---
PAGE MEDICAL DIRECTOR/HEAD TEAM PHYSICIAN MITTEN SEWER AGAIN. AWAITING RESPONSE
[2017-06-19 07:41] LABS: % SATURATION 15 % (15-55); IRON 14 ug/dl (35-150); TOTAL IRON BIND CAPACITY 93 ug/dl (260-445); UNSAT IRON BIND CAPACITY 79 ug/dl (150-375)
[2017-06-19 08:51] VITALS: BP 152/74
--- NOTE | 2017-06-19 09:28 | NUR ---
DISCUSSED WITH CURRENT SYMPTOMS AND SITUATION AND SHE IS AWARE SHE CAME UP OVERNIGHT WHEN PT WAS BLEEDING. PT IS REQUESTING A TRANSFER FOR A NEW SET OF EYES SINCE WE HAVE FOUND NO SOURCE OF BLEED. WOULD LIKE TO DO ANOTHER COLONOSCOPY HOWEVER PT AND DECLINED. PAGED TO SEE ABOUT TRANSFER. TYPE AND CROSS COMPLETED AND WILL TRANSFUSE 1 UNIT OF PRBCS WHEN READY AND CPOC.
--- NOTE | 2017-06-19 09:42 | NUR ---
PTS PORT NOT WORKING. UNABLE TO FLUSH OR DRAW BLOOD. EXPLAINED TO THE PATIENT WHY I WAS IN THE ROOM AND WHAT THE PROCESS WAS THAT WAS ABOUT TO HAPPEN. PT WAS NON VERBAL, BUT SHOOK HIS HEAD IN UNDERSTANDING. OLD DRESSING REMOVED, DC'D 20G MICHAELS NEEDLE WITH VISABLE CLOT ATTACHED ON REMOVAL, INSIDE SET UP. SET UP DISPOSED OF IN SHARPS CONTAINER, HANDS CLEANED, USING STERILE TECHNIQUE, PORT SITE REACCESSED USING A 19 G 0.75 INCH MICHAELS NEEDLE. RECEIVED GOOD BLOOD RETURN AND FLUSHED WITHOUT DIFFICULTY. DRESSING APPLIED PER PROTOCOL. WILL CHECK AND SEE IF BLOOD IS READY TO TRANSFUSE.
--- NOTE | 2017-06-19 11:51 | NUR ---
INITIATED PTS BLOOD TRANSFUSION. PT RUNNING SLIGHT TEMP PRIOR TO STARTING IT AT 100.4, GOT TYLENOL ORDERED AND WILL PROVIDE TO PT AND THEN CTM PER PROTOCOL.
--- NOTE | 2017-06-19 12:35 | NUR ---
TEMP DOWN TO 98.8 WITH TYLENOL GIVEN. VSS AND BEING MONITERED Q15MIN PER TRANSFUSION PROTOCOL. PT STILL VERY TIRED AND FREQUENTLY FALLING ASLEEP, NO CURRENT NEEDS AT THIS TIME. CL IN REACH, BED IN LOWEST, SIDE RAILS X2. WILL CPOC.
--- NOTE | 2017-06-19 13:41 | NUR ---
Dr. Pacheco said to continue Vancomycin for 4 more days. Random today was 14.1, gave 500mg x1 and ordered random for the next 3 days.
--- NOTE | 2017-06-19 13:41 | NUR ---
AT BEDSIDE INQUIRING ABOUT [facility] BLEED TEST, CALLED [facility] AND THEY STATED THEY WILL COME DO IT NEXT. PT STILL RECIEVING BLOOD HAS ABOUT 30 MINS LEFT. NO FURTHER NEEDS AT THIS TIME. PT REMAINS AFEBRILE AND VSS.
--- NOTE | 2017-06-19 14:00 | NUR ---
[facility] GI BLEED TEST ON HOLD UNTIL PT IS ACTIVELY BLEEDING FOR ACCURATE RESULTS DISCUSSED WITH CHELLY FROM [place] TO HAVE TEST ON A STAND-BY BUT READILY AVAILABLE IF CALLED FOR STAT.
--- NOTE | 2017-06-19 14:21 | NUR ---
BLOOD TRANSFUSION COMPLETED. VSS THROUGHOUT ENTIRE INFUSION. PT AWAKE AND SITTING UP BUT STILL VERY TIRED. PT DENIES WANTING TO EAT ANYTHING AND STATES "IM JUST NOT HUNGRY" NO CURRENT NEEDS. CL IN REACH, BED IN LOWEST, SIDE RAILS X2. WILL CPOC.
[2017-06-19 15:36] LABS: HEMATOCRIT 22.2 % (42.0-54.0)
--- NOTE | 2017-06-19 16:00 | NUR ---
AFTER 1 UNIT PRBCS PTS HGB DOWN FROM 7.1 TO 7.0 PAGED AND HE WANTS HIS [facility] GI BLEED TEST DONE NOW AND ORDERED ONE MORE UNIT OF BLOOD. DISCUSSED WITH PT AND WILL CPOC.
--- NOTE | 2017-06-19 17:19 | NUR ---
PTS AT BEDSIDE. PT HAD LARGE AMOUNTS OF BLOODY STOOL DRAINING OUT OF HIM. PT SOILED ALL HIS CLOTHES AND LINENS. ASSISTING HIM TO CLEAN UP. NM TEAM AT BEDSIDE FOR TEST. PT LEAVING NOW. WILL CTM.
--- NOTE | 2017-06-19 18:32 | NUR ---
PT BACK FROM TEST. AT BEDSIDE, AWAITING RESULTS. WILL GO GET SECOND UNIT OF BLOOD AND BEGIN TRANSFUSION.
--- NOTE | 2017-06-19 18:34 | NUR ---
CALLED AND STATED HE DOES NOT CURRENTLY SEE A BLEED FROM TESTING.
--- NOTE | 2017-06-19 19:00 | NUR ---
INITIATED PTS SECOND UNIT OF BLOOD, STAYED AT BEDSIDE FOR FIRST 15 MINS OF TRANSFUSION AND NO REACTIONS NOTED. VSS AND BEING MONITERED [id number] PER POLICY. PT EATING DINNER AND AT BEDSIDE. NO CURRENT NEEDS. WILL PASS ON TO NIGHTSHIFT.
--- NOTE | 2017-06-19 19:31 | NUR ---
PT IN BED RESTING QUIETLY. PRESENT AT BEDSIDE. BREATHING EVEN AND UNLABORED. BED IN LOW POSITION, CALL LIGHT WITHIN REACH. WILL CTM.
--- NOTE | 2017-06-19 19:34 | NUR ---
PT STILL RECEIVING SECOND UNIT OF BLOOD THAT WAS STARTED AT 1845 BY [facility] NURSE CHANDAN. VSS. WILL CTM.
[2017-06-19 20:00] VITALS: BP 160/79
--- NOTE | 2017-06-19 21:06 | NUR ---
PTS BLOOD DONE INFUSING. LAB DRAW SCHEDULED FOR 6 HOURS FROM NOW PER ORDER. PTS VSS. WILL CTM.
--- NOTE | 2017-06-19 23:58 | NUR ---
PT HAD LARGE AMOUNT BLOODY STOOL IN BED. PT WAS CLEANED UP, VSS, AND IS NOW IN BED RESTING QUIETLY. WILL CTM.
[2017-06-19 23:59] LABS: HEMATOCRIT 27.7 % (42.0-54.0); HEMOGLOBIN 9.1 g/dL (13.5-17.5)
[2017-06-20] VITALS: BP 177/87
[2017-06-20 04:00] VITALS: BP 156/93
--- NOTE | 2017-06-20 04:21 | NUR ---
PT HAD FEVER OF 100.9 THIS MORNING. PT WAS GIVEN PRN TYLENOL TO HELP LOWER HIS FEVER. WILL CTM.
[2017-06-20 06:02] LABS: BASOPHILS 0.1 % (0-2); EOSINOPHILS 0.2 % (0-7); HEMATOCRIT 24.5 % (42.0-54.0); HEMOGLOBIN 8.1 g/dL (13.5-17.5); IMMATURE GRANULOCYTES 0.3 % (0-5); LYMPHOCYTES 4.7 % (15-50); MCH 28.7 pg (26.0-34.0); MCHC 33.1 g/dL (31.0-37.0); MCV 86.9 fL (80.0-100.0); MEAN PLATELET VOLUME 9.6 fL (7.4-10.4); MONOCYTES 5.9 % (2-11); NEUTROPHILS 88.8 % (40-80); PLATELET COUNT 216 10x3/uL (130-400); RBC 2.82 10x6/uL (4.20-6.10); RDW 16.1 % (11.5-14.5)
[2017-06-20 06:04] LABS: WBC 14.4 10x3/uL (4.8-10.8)
[2017-06-20 06:17] LABS: ALBUMIN 1.3 g/dL (3.4-5.0); ANION GAP 15.3 mmol/L (8-16); BILIRUBIN - TOTAL 0.41 mg/dL (0.2-1.3); CALCIUM 7.8 mg/dL (8.5-10.1); CARBON DIOXIDE 18.8 mmol/L (21.0-32.0); CREATININE - SERUM 3.4 mg/dL (0.6-1.3); MAGNESIUM - SERUM 1.6 mg/dL (1.8-2.4); POTASSIUM - SERUM 4.1 mmol/L (3.5-5.1); PROTEIN - SERUM 4.7 g/dL (6.4-8.2); VANCOMYCIN - RANDOM 16.3 ug/mL (10.0-20.0)
[2017-06-20 08:32] VITALS: BP 137/68
--- NOTE | 2017-06-20 10:56 | NUR ---
CALLED PHARMACY [employer] THAT I NEED MUCOMYST FOR PT.
--- NOTE | 2017-06-20 11:47 | NUR ---
BLOOD SUGAR OF 156, PT REFUSED TO RECEIVE 2UNITS OF INSULIN PER S/S. PT IN BE, STATES HE IS COLD, AIR CONDITIONER NOT WORKING, WORKED ORDERED PLACED ALREADY. PT DENIES ANY OTHER NEEDS, CALL LIGHT IN REACH, NAD NOTED,WILL CONTINUE TO MONITOR.
[2017-06-20 11:49] LABS: HEMATOCRIT 23.4 % (42.0-54.0); HEMOGLOBIN 7.6 g/dL (13.5-17.5)
[2017-06-20 12:05] VITALS: BP 154/71
--- NOTE | 2017-06-20 14:23 | NUR ---
SPOKE WITH CLINTON NICOLE IN REGARDS TO PATIENTS WIFES REQUEST TO TRANSFER. PER HER REQUEST @1205, A CALL WAS PLACED TO DR LIN OFFICE ([phone]), I RECEIVED THE ANSWERING SERVICE. DR BAUGH IS FUR PLUCKER FOR DR LIN. HE WAS PAGED THROUGH THE SERVICE AND CALLED BACK WITHIN MINUTES. DISCUSSED WITH HIM THE REQUEST OF MARTIN TO SEE IF HE WOULD BE WILLING TO ACCEPT THE PATIENT OVER AT [facility] FOR A TRANSFER. HE STATED THAT HE DID NOT FEEL THERE WAS ANYTHING THEY COULD DO THAT HASN'T BEEN DONE, AND STATED THAT IF THE FAMILY IS WANTING A SECOND OPINION THEY SHOULD PROBABLY GO TO [place]. THIS WAS EXPLAINED TO MARTIN. SHE STATED THAT DR MERCADO AND NOW DR BAUGH HAVE SAID NO TO TRANSFERRING TO [facility]. SHE GAVE ME DR BENDER CONTACT NUMBER AND STATED TO TRY TO TRANSFER TO [facility] IN [place], WHICH IS WHERE THE WOULD LIKE FOR HIM TO GO. @1225 SPOKE WITH VINOD CHOWDARY IN HAND ASSEMBLER FOR [employer] OVER, AND EXPLAIN THE WANT TO TRANSFER SHE STATED SHE WOULD TALK WITH SUSAN POWELL, AND CALL ME BACK. @1238 RECEIVED A CALL FROM SUSAN GROVER, THE NOW HAND ASSEMBLER FOR [employer]. REEXPAINED EVERYTHING TO HER, AND SHE STATED THAT SHE WAS GOING TO HAVE TO TALK WITH SUSAN POWELL. @1253, RECEIVED A CALL BACK FROM CARRIE, WHO STATED IT WAS OK TO PROCEED WITH THE TRANSFER BUT TO MAKE SURE THAT THE PT/FAMILY REQUESTED TRANSFER BOX IS MARKED ON THE TRANSFER FORM. @1257, CALL WAS PLACED TO [facility] IN [place] ([phone]), AND I SPOKE WITH STEPHANIA IN BED CONTROL WHO TRANSFERED ME TO THE ACCESS NURSE. A GENTLEMAN ANSWERED THE PHONE AND TOLD ME THE ACCESS NURSE WAS ON THE OTHER PHONE AND I WOULD NEED TO CALL HER BACK. HE GAVE ME THE NUMBER, , A CALL BACK NUMBER. @5355, SPOKE WITH ARJUN ACCESS NURSE. SHE TOOK THE INFORMATION NEEDED AND QUESTIONED TO WHAT THEY WERE GOING TO DO FOR THIS PATIENT THAT OUR PHYSICIANS HAVE NOT DONE. EXPLAINED THAT THE IS ASKING FOR ANOTHER OPINION SECONDARY TO NOT BEING ABLE TO BE TOLD THE SOURCE OF THE PATIENT BLEED BY THE DOCTORS HERE. ALSO EXPLAINED THAT THE DOCTORS ARE UNSURE OF WHAT ELSE TO DO BUT MONITOR AND TREAT INDICATED. SHE STATED THAT SHE WOULD CALL HER GI SPECIALIST AND HAVE THEM CALL DR BENDER. THE NUMBER GIVEN TO ME BY CLINTON NICOLE FOR DR BENDER WAS GIVEN TO HER. SHE STATED SHE WOULD CALL ME BACK AND LET ME KNOW WHAT IS DECIDED. CASE MANAGEMENT WILL CONTINUE TO FOLLOW AND ASSIST WITH TRANSFER.
--- NOTE | 2017-06-20 15:31 | NUR ---
SPOKE WITH ARJUN, ACCESS NURSE AT [facility] ([phone]), EXPLAINED THAT I WAS ABOUT TO LEAVE FOR THE DAY AND WANTED TO CHECK AND SEE IF THERE WAS ANY NEWS IN REGARDS TO TRANSFER. SHE STATED THAT SHE HAS TALKED TO HER DOCTOR AND HE WAS SKEPTICAL ABOUT TAKING THE PATIENT, THAT HE DIDN'T FEEL THAT THERE WAS MUCH THEY COULD DO THAT HASN'T BEEN DONE HERE, BUT STATED HE WAS GOING TO CALL DR BNEDER AND SHE IS JUST WAITING TO HEAR BACK FROM HIM. EXPLAINED TO HER THAT I WAS GETTING READY TO LEAVE AND WOULD NEED TO KNOW WHAT TO TELL THE NURSE THAT IS CARING FOR HIM. SHE STATED IF SHE FOUND OUT ANYTHING, SHE WOULD CALL THE FLOOR. WILL RELAY THIS TO CHANDAN LAGUNAS RN.
--- NOTE | 2017-06-20 17:38 | NUR ---
Patient Name: KERRI BAUTISTA Encounter No: [id number] : 1950 Primary Insurance: [employer] CHO[employer] PPO MCR ADVANT Anticipated DC Date: Planned Disposition: TRANSFER TO [facility] External Planned Provider: [facility] DCP follow-up note: CM MET WITH PT IN ROOM THIS MORNING, PT IS WANTING TRANSFER TO FIND OUT WHAT IS GOING ON AND SECOND OPINION. PT REPORTS HIS WANTED [facility] [place]. CM PROVIDED AND DISCUSSED IMPORTANT MESSAGE FROM MEDICARE, INFORMED PT THAT RN NICOLE HINDS WAS WORKING ON TRYING TO FIND ACCEPTING HOSPITAL AND PHYSICIAN. SUSAN HINDS LATER ADVISED CM THAT DR. MERCADO NOR DR. BAUGH WOULD AGREE TO LATERALLY TRANSFER PT TO [facility]. AT APPROXIMATELY 1659 HOURS, CM WAS ADVISED BY DR. BENDER THAT [facility] [place] DECLINED TO ACCEPT PT FOR TRANSFER AND ASKED THAT CM HAVE WEEKEND CM WORK ON TRANSFER TO [facility]; CLINTON JAIME ALSO ADVISED CM THAT THE FAMILY NOW REQUESTS TRANSFER TO [facility]. CM PROVIDED PHYSICIAN CALL CENTER NUMBER TO [facility] AND INFORMED HER THAT THE DOCTOR MAY CALL THE PHYSICAN CALL CENTER TO EXPEDITE THE REQUEST. CM WAS ADVISED TO HAVE CM WORK ON THIS TOMORROW. CM LEFT ORDER WITH DR. BENDER PHONE NUMBER FOR WEEKEND CM FOLLOW UP ON TRANSFER REQUEST. Randy Botello, CASE MANAGEMENT
--- NOTE | 2017-06-20 18:00 | NUR ---
PTS CONCERNED WITH HIS ABDOMEN BEING SLIGHTLY DISTENDED. MID ABDOMEN INCISION HAS STERI-STRIPS IN PLACE AND LOOKS CLEAN AND DRY HOWEVER SMALL INCISION TO LEFT SIDE OF ABDOMEN IN 2 LOCATIONS LOOKS IRRITATED AND SLIGHTLY PULLING APART, PAGED PRIMARY WILL CLEAN AND APPLY STERI-STRIPS TO THOSE LOCATIONS AND CPOC.
[2017-06-20 18:17] LABS: HEMATOCRIT 23.3 % (42.0-54.0); HEMOGLOBIN 7.7 g/dL (13.5-17.5)
--- NOTE | 2017-06-20 18:36 | NUR ---
INITIATED PTS FIRST UNIT OF FFP, PRE VITALS STABLE EXCEPT SLIGHT TEMP OF 99.7, PROVIDED PT WITH PRN TYLENOL AND WILL CTM. FFP INFUSING VIA L.CHEST INFUSAPORT VS BEING MONITERED [id number] PER POLICY. WILL CTM.
--- NOTE | 2017-06-20 19:15 | NUR ---
SECOND UNIT OF FFP COMPLETED. VSS EXCEPT PTS TEMP IS FEBRILE. PT WAS ALREADY TREATED WITH PRN TYLENOL. I HAVE PAGED PRIMARY AND NO ONE HAS CALLED BACK, WILL TRY ONCE AGAIN BEFORE I LEAVE. SHIFT REPORT GIVEN AND PTS NIGHTSHIFT NURSE IS AWARE. PT DENIES ANY WEIRD OR DIFFERENT FEELINGS AND STATES HE IS JUST COLD. WILL CPOC.
[2017-06-20 20:00] VITALS: BP 162/68
--- NOTE | 2017-06-20 20:00 | NUR ---
PT IS RESTING IN BED WITH EYES CLOSED. AWOKE EASILY TO VERBAL STIMULI. ALERT AND ORIENTED X 3. DENIES ACUTE DISCOMFORT AT THIS TIME. TEMP IS 100.1 ORAL. WILL MONITOR CLOSELY. O2 IS ON @ 3LPM PER NC. NO SOB NOTED. ABD. INCISION IS CDI. NO DRAINAGE NOTED. DROPLETT ISOLATION PRECAUTIONS OBSERVED. LEFT CHEST PORT NOTED. SR'S ARE UP X 3 IN BED. CALL LIGHT AND BEDSIDE TABLE ARE WITHIN EASY REACH.
--- NOTE | 2017-06-20 21:59 | NUR ---
PT IS RESTING QUIETLY IN BED WITH EYES CLOSED. RESPS ARE EVEN AND UNLABORED. NO ACUTE DISTRESS NOTED.
[2017-06-21] VITALS: BP 175/80
[2017-06-21 00:02] LABS: HEMATOCRIT 24.2 % (42.0-54.0)
--- NOTE | 2017-06-21 01:11 | NUR ---
PT SITTING ON THE SIDE OF HIS BED USING HIS URINAL. VOIDING SMALL AMOUNTS.
--- NOTE | 2017-06-21 03:00 | NUR ---
PT RESTING COMFORTABLY, NO NEEDS AT THIS TIME. CONTINUE TO MONITOR CLOSELY.
[2017-06-21 04:00] VITALS: BP 136/67
[2017-06-21 04:54] LABS: BASOPHILS 0 % (0-2); EOSINOPHILS 0.1 % (0-7); HEMATOCRIT 24.4 % (42.0-54.0); HEMOGLOBIN 7.8 g/dL (13.5-17.5); IMMATURE GRANULOCYTES 0.3 % (0-5); LYMPHOCYTES 4.9 % (15-50); MCH 27.9 pg (26.0-34.0); MCV 87.1 fL (80.0-100.0); MEAN PLATELET VOLUME 9.3 fL (7.4-10.4); MONOCYTES 4.5 % (2-11); NEUTROPHILS 90.2 % (40-80); PLATELET COUNT 226 10x3/uL (130-400); RDW 16.2 % (11.5-14.5); WBC 13.4 10x3/uL (4.8-10.8)
[2017-06-21 05:22] LABS: ALBUMIN 1.6 g/dL (3.4-5.0); ANION GAP 14.2 mmol/L (8-16); BILIRUBIN - TOTAL 0.47 mg/dL (0.2-1.3); CALCIUM 8.4 mg/dL (8.5-10.1); CARBON DIOXIDE 21.9 mmol/L (21.0-32.0); CREATININE - SERUM 3.4 mg/dL (0.6-1.3); MAGNESIUM - SERUM 1.7 mg/dL (1.8-2.4); PHOSPHOROUS 4.2 mg/dL (2.5-4.9); POTASSIUM - SERUM 4.1 mmol/L (3.5-5.1); PROTEIN - SERUM 5.4 g/dL (6.4-8.2)
--- NOTE | 2017-06-21 06:15 | NUR ---
PT RESTING QUIETLY IN BED WITH EYES CLOSED. RESPS ARE EVEN AND UNLABORED. NO ACUTE DISTRESS NOTED.
[2017-06-21 07:51] VITALS: BP 151/68
[2017-06-21 11:12] VITALS: BP 155/73
--- NOTE | 2017-06-21 11:59 | NUR ---
PT HAD A STOOL AND IT WAS BLOODY BUT NOT A BRIGHT BLOOD ACTIVE BLEED, DISCUSSED WITH AND WILL NOT SEND PT FOR STAT NM BLEED TEST WE DONT BELIEVE ITS AN ACTIVE AND TEST WILL BE WASTE OF TIME AND BILLS CONTINUE TO ADD UP WITH NO RESULTS. STILL WAITING ON PRIMARY AND CASE MANAGEMENT TO DISCUSS IF [facility] WILL ACCEPT PT FOR TRANSFER OR NOT.
--- NOTE | 2017-06-21 13:14 | NUR ---
CALLED [facility] PHYSICIAN TRANSFER HOTLINE AND SPOKE WITH TRIAGE NURSE. INFORMATION GIVEN AND IS AWARE AND HER CELL NUMBER WAS GIVEN AND THEY WILL CALL US BACK AND LET US KNOW.
--- NOTE | 2017-06-21 15:36 | NUR ---
SPOKE TO MARTIN FROM [facility] AND ROOM F624 WAS GIVEN. NURSE REPORT GIVEN TO NABIL DAVIS WHO WILL BE RECIEVING HIM. WILL WORK ON DISCHARGE PAPERS AND CONTINUE WITH TRANSFER PROCESS.
--- NOTE | 2017-06-21 15:50 | NUR ---
CALLED [facility] FOR TRANSPORTATION. SPOKE WITH NINA AROUND AN HOUR AND HALF. WILL CTM UNTIL THEIR ARRIVAL.
--- NOTE | 2017-06-21 16:59 | NUR ---
D/C PTS L.FA PIV WITH CATHETER TIP FULLY INTACT. HEP LOCKED PTS L.CHEST INFUSAPORT WITH 5ML OF HEP ORDERED. [facility] HERE TO TAKE PT NOW, BELONGINGS COLLECTED AND SENT WITH NO FURTHER NEEDS.
--- NOTE | 2017-06-21 19:58 | NUR ---
LATE ENTRY 1400 CM SPOKE WITH PRIMARY NURSE, CHANDAN. PROVIDED MD CALL CENTER NUMBER FOR DR BENDER TO COMPLETE MD- MD COMMUNICATION. ADVISED DR BENDER MUST SPEAK W/ [facility] MD. COBRA FORM AND PCS FORM PROVIDED . TC TO NURSING TECHNICIAN TO REQUEST ALL FILMS ON DISC. CHART TO BE COPIED. 1505 RECEIVED TC FROM CHANDAN THAT PATIENT HAD BEEN ACCEPTED. [facility] TRANSFER FORMS COMPLETED BY CHANDAN AND FAXED BACK. ASSISTED W/ COBRA FORM. PATIENT ASSIGNED TO F 624, THE ACCEPTING MD IS DR SHILPA BAUTISTA. 1700 TRANSPORTATION VIA AMBULANCE TO [facility] W/ TRANSFER PACKET.
== END 2017-06-21 17:05 | disposition short-term general hospital (02) | DRG 853 ==
LOC: D.ER 15:07 → D.ICU 21:14 → D.M2 21:14 → D.ICU 06-08 07:54 → D.M2 06-17 21:44
PROVIDERS: Emergency Medicine; Family Medicine; Internal Medicine; Internal Medicine Nephrology; Internal Medicine Pulmonary Disease; Radiology Diagnostic Radiology; ADMIT Family Medicine
PROC: 3E033XZ Introduction of Vasopressor into Peripheral Vein, Percutaneous Approach (ICD-10-PCS; 2017-06-08)
PROC: B4141ZZ Fluoroscopy of Superior Mesenteric Artery using Low Osmolar Contrast (ICD-10-PCS; principal; 2017-06-08 16:12)
PROC: B4141ZZ Fluoroscopy of Superior Mesenteric Artery using Low Osmolar Contrast (ICD-10-PCS; 2017-06-09)
PROC: 0WJP4ZZ Inspection of Gastrointestinal Tract, Percutaneous Endoscopic Approach (ICD-10-PCS; 2017-06-13)
PROC: 0DJD8ZZ Inspection of Lower Intestinal Tract, Via Natural or Artificial Opening Endoscopic (ICD-10-PCS; 2017-06-13)
DX: A41.9 Sepsis, unspecified organism (principal); J15.6 Pneumonia due to other Gram-negative bacteria; J15.212 Pneumonia due to Methicillin resistant Staphylococcus aureus; G93.41 Metabolic encephalopathy; I50.23 Acute on chronic systolic (congestive) heart failure; J96.21 Acute and chronic respiratory failure with hypoxia; K25.4 Chronic or unspecified gastric ulcer with hemorrhage; N17.9 Acute kidney failure, unspecified; J44.1 Chronic obstructive pulmonary disease with (acute) exacerbation; J44.0 Chronic obstructive pulmonary disease with (acute) lower respiratory infection; C34.90 Malignant neoplasm of unspecified part of unspecified bronchus or lung; J98.11 Atelectasis; I13.0 Hypertensive heart and chronic kidney disease with heart failure and stage 1 through stage 4 chronic kidney disease, or unspecified chronic kidney disease; D62 Acute posthemorrhagic anemia; E46 Unspecified protein-calorie malnutrition; E11.649 Type 2 diabetes mellitus with hypoglycemia without coma; E11.22 Type 2 diabetes mellitus with diabetic chronic kidney disease; N18.9 Chronic kidney disease, unspecified; E78.5 Hyperlipidemia, unspecified; I25.10 Atherosclerotic heart disease of native coronary artery without angina pectoris; Z95.1 Presence of aortocoronary bypass graft; D63.1 Anemia in chronic kidney disease; K57.90 Diverticulosis of intestine, part unspecified, without perforation or abscess without bleeding; G47.33 Obstructive sleep apnea (adult) (pediatric); Z68.24 Body mass index [BMI] 24.0-24.9, adult; K44.9 Diaphragmatic hernia without obstruction or gangrene

== ENCOUNTER 2017-07-10 14:05 | Outpatient (CLI) | payer MEDICARE ==
[~2017-07-10] VITALS: Ht 185.4 cm; Wt 81.8 kg
[2017-07-10 15:48] VITALS: BP 181/97; Ht 185.4 cm; Wt 81.8 kg
== END 2017-07-10 19:38 | disposition home or self-care (01) ==
LOC: D.OPS 14:05
DX: D64.9 Anemia, unspecified (principal)